=== PATIENT | male | born 1945 | race Caucasian/White ===

== ENCOUNTER 2020-11-12 08:01 | Outpatient (REF) | payer MEDICARE, OTHER, SELFPAY ==
[2020-11-12 11:55] LABS: Hematocrit 45.3 % (42-52); Hemoglobin 14.8 g/dl (14.0-18.0); Mean Corpuscular HGB Conc 32.7 g/dl (31.0-36.0); Mean Corpuscular Hemoglobin 30.6 pg (27.0-33.0); Mean Corpuscular Volume 93.6 fL (80-98); Mean Platelet Volume 9.9 fL (9.4-12.4); Platelet Count 293 X10*3/uL (160-400); Red Blood Count 4.84 X10*6/uL (4.60-5.80); Red Cell Distribution Width 12.5 % (11.0-16.0)
[2020-11-12 12:05] LABS: Estimated Average Glucose 114 mg/dL; Hemoglobin A1c % 5.6 %
[2020-11-12 12:48] LABS: Alanine Aminotransferase 23 U/L (0-40); Albumin Level 4.4 g/dL (3.5-5.0); Alkaline Phosphatase 102 U/L (39-117); Anion Gap 10 (12-20); Aspartate Amino Transferase 20 U/L (5-37); Bilirubin Total 0.7 mg/dL (0.0-1.0); Blood Urea Nitrogen 22 mg/dL (9-16); Calcium 9.5 mg/dL (8.4-10.2); Carbon Dioxide 33 mmol/L (22-29); Chloride 101 mmol/L (96-108); Cholesterol 279 mg/dL; Estimated Glomerular Filt Rate > 60; Glucose Fasting 98 mg/dL (60-99); HDL Cholesterol 47 mg/dL; LDL Cholesterol Calculated 179 mg/dl; Potassium 3.8 mmol/L (3.3-5.1); Sodium 140 mmol/L (135-145); Total Protein 6.6 g/dL (6.5-8.0); Triglycerides 266 mg/dL
[2020-11-12 13:03] LABS: Prostate Specific Antigen Scr 1.04 ng/mL (<0.05-4.0); TSH reflex Free T4 1.35 uIU/mL (0.32-4.0)
[2020-11-12 13:45] LABS: Creatinine Urine 83.52 mg/dL; Microalbum/Creatinine Ratio Ur 9.5 ug/mg cr
== END 2020-11-12 08:02 | disposition home or self-care (01) ==
LOC: HO.HMGCLDS 08:01
PROVIDERS: PCP Physician Assistant; Visit Provider Physician Assistant
DX: R73.09 Other abnormal glucose (principal); I10 Essential (primary) hypertension; Z12.5 Encounter for screening for malignant neoplasm of prostate
CPT/HCPCS: 36415; 80053; 80061; 82043; 83036; 84153; 84443; 85027

== ENCOUNTER → 2021-01-21 08:19 | Outpatient (REF) | payer MEDICARE, OTHER, SELFPAY ==
--- NOTE | 2021-01-21 08:30 | CA_ITS ---
Transthoracic Echocardiogram Patient (Last, First, Middle): Freddie Mancilla R Gender: Male Date of : 1945 Age: 75 Procedure Date: 01/21/2021 Procedure Type: Transthoracic Echocardiogram Location: OP Height: 177.8 cm Weight: 98.88 kg BSA: 2.17 m2 Heart Rate: bpm BP: 120 / 80 mmHg Consulting Systems Engineer: IRINA Referring MD: Josep Garner MD Symptoms: I35.9 AORTIC VALVE CALCIFICATION Study Quality: Good ECG Rhythm: Sinus Conclusions: - The left ventricular systolic function is normal. The visually estimated ejection fraction is between 60-65%. - Aortic valve sclerosis but no significant stenosis. Findings Left Ventricle Normal left ventricular cavity size. There is mildly increased left ventricular wall thickness. The left ventricular systolic function is normal. The visually estimated ejection fraction is between 60-65%. There is no evidence of regional wall motion abnormalities. Evidence suggests grade I (mild) diastolic dysfunction. Right Ventricle Normal right ventricular cavity size and systolic function. Atria Both atria are normal in size. Aortic Valve There is a normal trileaflet aortic valve. There is moderate calcification of the aortic valve. The peak aortic velocity is 2.76 m/s with a calculated peak gradient of 30 mmHg. The mean gradient is 16 mmHg. The aortic valve area is 2.17 cm2. There is mild aortic valve regurgitation. No significant stenosis. Mitral Valve The mitral valve appears normal. There is trace mitral valve regurgitation. There is no mitral valve stenosis. Pulmonic Valve The pulmonic valve was not well visualized. Tricuspid Valve Normal tricuspid valve structure. There is mild tricuspid valve regurgitation. The pulmonary artery systolic pressure is normal. Great Vessels The aortic annulus, sinuses of valsalva, and asc aorta are normal in size. Venous The inferior vena cava is normal in size and collapses greater than 50% with inspiration. Pericardium/Pleural There is no evidence of pericardial effusion. Prior Study Comparison Changes noted compared to prior study dated: 04/15/2018. Gradients across the aortic valve are slightly higher. Measurements 2D Linear Measurements IVSd: 1.13 0.6-0.9/0.6-1.0 cm LVIDd: 4.70 3.9-5.3/4.2-5.9 cm LVIDd Index: 2.17 2.4-3.2/2.2-3.1 cm/m2 LVIDs: 2.94 2.0-3.6 cm LVPWd: 1.04 0.7-1.1 cm Ao Root: 3.60 2.1-3.5 cm LA Diam: 3.20 2.7-3.8/3.0-4.0 cm LAIDs Index: 1.47 1.5-2.3 cm/m2 LV Mass: 229.24 67-162/88-224 g LV Mass Index: 105.64 43-95/49-115 g/m2 LVOT Diam: 2.30 3.0+(-)1.3 cm 2D Systolic Function EF 4C: 57.30 >55% EF 2C: 67.50 >55% EF BiP: 61.80 >55% Mitral Valve MV Pk E: 0.68 MV PK A: 0.59 MV Decel Time: 344.00 E/A: 1.20 E'Lateral: 7.94 E'Medial: 6.74 E/E' Med: 10.10 E/E' Lat: 8.60 PHT: 101.00 MVA PHT: 2.18 Decel Pratt: 1.98 Aortic Valve AoV Pk Arik: 2.76 AoV Mn Arik: 1.91 AoV VTI: 0.61 AoV Pk Grad: 30.00 Aov Mn Grad: 16.00 [place] Cont.VTI: 2.17 AI Pk Arik: 3.75 AI Pratt: 2.06 LVOT LVOT Pk Arik: 1.34 LVOT Mn Arik: 1.05 LVOT VTI: 0.32 LVOT Pk Grad: 7.00 LVOT Mn Grad: 5.00 LVOT Diam: 2.30 LVOT Area: 4.15 Diastolic Function MV Pk E: 0.68 MV Pk A: 0.59 E/A: 1.20 E'Medial: 6.74 E/E' Med: 10.10 E' Laterial: 7.94 E/E' Lat: 8.60 Tricuspid Valve TR Pk Arik: 2.71 TR Pk Grad: 29.00 RA Press: 3.00 RVSP: 32.00 Great Vessels Aorta Ao Root-2D: 3.60 2.0-3.7 cm Ao Asc: 3.30 2.1-3.4 cm Ao Arch: 2.80 Updated in Other Vendor System with Status of Final Josep Garner MD electronically signed on 01/23/2021 1:25:45 PM with status of Final
== END ==
LOC: HO.CARD 08:19
PROVIDERS: Visit Provider Internal Medicine
DX: I35.9 Nonrheumatic aortic valve disorder, unspecified (principal)
CPT/HCPCS: 93306

== ENCOUNTER → 2021-01-26 08:03 | Outpatient (BNVA) | payer MEDICARE, OTHER, SELFPAY | PROVIDERS: PCP Physician Assistant; Referring Provider Physician Assistant; Visit Provider Internal Medicine | DX: I25.10 Atherosclerotic heart disease of native coronary artery without angina pectoris (principal); I10 Essential (primary) hypertension; E78.5 Hyperlipidemia, unspecified; E11.8 Type 2 diabetes mellitus with unspecified complications; I35.9 Nonrheumatic aortic valve disorder, unspecified; G47.33 Obstructive sleep apnea (adult) (pediatric) | CPT/HCPCS: 93005; 99212 ==

== ENCOUNTER 2021-02-22 09:31 | Outpatient (REF) | payer MEDICARE, OTHER, SELFPAY ==
[2021-02-22 11:57] LABS: Alanine Aminotransferase 25 U/L (0-40); Albumin Level 4.5 g/dL (3.5-5.0); Alkaline Phosphatase 109 U/L (39-117); Anion Gap 12 (12-20); Aspartate Amino Transferase 25 U/L (5-37); Blood Urea Nitrogen 24 mg/dL (9-16); Calcium 9.7 mg/dL (8.4-10.2); Carbon Dioxide 30 mmol/L (22-29); Chloride 105 mmol/L (96-108); Cholesterol 156 mg/dL; Estimated Glomerular Filt Rate > 60; Glucose Fasting 97 mg/dL (60-99); HDL Cholesterol 45 mg/dL; LDL Cholesterol Calculated 78 mg/dl; Potassium 4.2 mmol/L (3.3-5.1); Sodium 143 mmol/L (135-145); Total Protein 6.6 g/dL (6.5-8.0); Triglycerides 166 mg/dL
[2021-02-22 12:15] LABS: Estimated Average Glucose 117 mg/dL; Hemoglobin A1C 151.6938 umol/L; Hemoglobin A1c % 5.7 %
[2021-02-22 12:17] LABS: TSH reflex Free T4 1.13 uIU/mL (0.32-4.0)
== END 2021-02-22 09:32 | disposition home or self-care (01) ==
LOC: HO.HMGCLDS 09:31
PROVIDERS: PCP Physician Assistant; Visit Provider Internal Medicine
DX: E11.8 Type 2 diabetes mellitus with unspecified complications (principal); I25.10 Atherosclerotic heart disease of native coronary artery without angina pectoris
CPT/HCPCS: 36415; 80053; 80061; 83036; 84443

== ENCOUNTER 2021-09-03 09:10 | Outpatient (REF) | payer MEDICARE, OTHER, SELFPAY ==
[2021-09-03 10:56] LABS: Hematocrit 43.9 % (42.0-52.0); Hemoglobin 14.5 g/dl (14.0-18.0); Mean Corpuscular Hemoglobin 30.9 pg (27.0-33.0); Mean Corpuscular Volume 93.6 fL (80.0-98.0); Mean Platelet Volume 10.1 fL (9.4-12.4); Platelet Count 249 X10*3/uL (160-400); Red Blood Count 4.69 X10*6/uL (4.60-5.80); Red Cell Distribution Width 11.9 % (11.0-16.0); White Blood Count 6.1 X10*3/uL (4.8-10.8)
[2021-09-03 11:06] LABS: Estimated Average Glucose 120 mg/dL; Hemoglobin A1C 152.3509 umol/L; Hemoglobin A1c % 5.8 %
[2021-09-03 11:45] LABS: Alanine Aminotransferase 36 U/L (0-40); Albumin Level 4.2 g/dL (3.5-5.0); Alkaline Phosphatase 111 U/L (39-117); Anion Gap 10 (12-20); Aspartate Amino Transferase 27 U/L (5-37); Bilirubin Total 0.9 mg/dL (0.0-1.0); Blood Urea Nitrogen 24 mg/dL (9-16); Calcium 9.6 mg/dL (8.4-10.2); Carbon Dioxide 31 mmol/L (22-29); Chloride 103 mmol/L (96-108); Cholesterol 146 mg/dL; Creatinine Urine 48.47 mg/dL; Estimated Glomerular Filt Rate > 60; Glucose Fasting 100 mg/dL (60-99); HDL Cholesterol 45 mg/dL; LDL Cholesterol Calculated 72 mg/dl; Microalbum/Creatinine Ratio Ur 14.4 ug/mg cr; Potassium 3.9 mmol/L (3.3-5.1); Sodium 140 mmol/L (135-145); Total Protein 6.4 g/dL (6.5-8.0); Triglycerides 147 mg/dL
[2021-09-03 11:53] LABS: Prostate Specific Antigen Scr 0.68 ng/mL (<0.05-4.0); TSH reflex Free T4 1.14 uIU/mL (0.32-4.0)
== END 2021-09-03 09:11 | disposition home or self-care (01) ==
LOC: HO.HMGCLDS 09:10
PROVIDERS: PCP Physician Assistant; Visit Provider Physician Assistant
DX: I10 Essential (primary) hypertension (principal); I25.10 Atherosclerotic heart disease of native coronary artery without angina pectoris; Z12.5 Encounter for screening for malignant neoplasm of prostate
CPT/HCPCS: 36415; 80053; 80061; 82043; 83036; 84153; 84443; 85027

== ENCOUNTER 2021-09-19 15:03 | Outpatient (REF) | payer MEDICARE, OTHER, SELFPAY ==
--- NOTE | ~2021-09-19 | XR_ITS ---
EXAMINATION: XR LUMBOSACRAL SPINE CLINICAL INFORMATION: Spondylosis without myelopathy or radiculopathy. COMPARISON: Unremarkable lumbar spine November 2018. TECHNIQUE: 3 views of the lumbosacral spine. FINDINGS: There is curvature of the mid lumbar spine to the right. There is anterior subluxation of L3 with respect to L2. Bone alignment is otherwise normal. No fracture or dislocation is seen. There is multilevel degenerative spondylosis and degenerative disc disease. There is multilevel facet arthritis. There is evidence of atherosclerotic disease. XR/XR lumbar spine 2-3V IMPRESSION: Scoliosis. Mild anterior subluxation of L3 with respect to L2. Multilevel degenerative disc disease and facet arthritis.
== END 2021-09-19 15:04 | disposition home or self-care (01) ==
LOC: HO.XRAY 15:03
PROVIDERS: PCP Physician Assistant; Visit Provider Internal Medicine
DX: M47.816 Spondylosis without myelopathy or radiculopathy, lumbar region (principal); M96.1 Postlaminectomy syndrome, not elsewhere classified
CPT/HCPCS: 72100; 99202

== ENCOUNTER → 2021-09-30 10:59 | Outpatient (BNVA) | payer MEDICARE, OTHER, SELFPAY | PROVIDERS: PCP Physician Assistant; Visit Provider Internal Medicine | DX: M96.1 Postlaminectomy syndrome, not elsewhere classified (principal); M47.816 Spondylosis without myelopathy or radiculopathy, lumbar region | CPT/HCPCS: Q3014 ==

== ENCOUNTER 2021-11-16 06:12 | Outpatient (REF) | payer MEDICARE, OTHER, SELFPAY ==
--- NOTE | ~2021-11-16 | FL_ITS ---
EXAMINATION: XR FLUOROSCOPY WITH IMAGES CLINICAL INFORMATION: Spondylosis without myelopathy COMPARISON: None. TECHNIQUE: Fluoroscopy performed by all the etiology. Fluoroscopy time: 0.4 minutes DAP: 2.52 Gycm2 Images: 3 FINDINGS: There is contrast opacifying soft tissues adjacent to the right and left L4 and L5 pedicles for pain management. There is loss of disc at virtually at every disc level with spondylosis. No fracture or lytic process seen. FL/FL guidance in treatment room IMPRESSION: Fluoroscopy guidance was provided to referrer for pain management
== END 2021-11-16 06:13 | disposition home or self-care (01) ==
LOC: HO.RADIR 06:12
PROVIDERS: Visit Provider Internal Medicine
DX: M47.816 Spondylosis without myelopathy or radiculopathy, lumbar region (principal); M96.1 Postlaminectomy syndrome, not elsewhere classified
CPT/HCPCS: 64493; 64494; Q9967

== ENCOUNTER → 2021-11-18 11:34 | Outpatient (BNVA) | payer MEDICARE, OTHER, SELFPAY | PROVIDERS: PCP Physician Assistant; Visit Provider Internal Medicine | DX: M47.816 Spondylosis without myelopathy or radiculopathy, lumbar region (principal) | CPT/HCPCS: Q3014 ==

== ENCOUNTER → 2022-01-11 07:28 | Day surgery (SDC) | payer MEDICARE, OTHER, SELFPAY ==
--- NOTE | ~2022-01-11 | FL_ITS ---
EXAMINATION: XR FL WITH IMAGES CLINICAL INFORMATION: Pain management fluoroscopy. COMPARISON: 11/16/2021 TECHNIQUE: Fluoroscopy performed by Dr. Milian. Fluoroscopy Time: 0.5 minutes. DAP: 4.99 Gycm2. Images: 3. FINDINGS: Williams are seen placed near the pedicles of L3, L4, and L5 on the right. There is significant degenerative disc disease seen at the visualized levels. FL/FL guidance in OR IMPRESSION: C-arm imaging for pain management therapy.
--- NOTE | 2022-01-11 09:35 | MHC.SHP ---
Pre-Procedural Eval Section A Date of Service: 01/11/22 The patient is an INPATIENT: No Changes since office visit: Yes Patient answered all questions The History & Physical has been completed within 30 days and I have reviewed it.: No Section B Chief Complaint: Spondylosis without myelopathy or radiculopathy, l Relevant Family History (Specify if Yes): No Relevant Social History: None Allergies: Allergies Allergy/AdvReac Type Severity Reaction Status Date / Time No Known Allergies Allergy Verified 11/16/21 07:57 Plan Diagnosis/Plan: Unchanged I have reviewed the history and physical and performed a pertinent physical examination on my patient. No changes have occurred unless specified.
--- NOTE | 2022-01-11 09:36 | P.BOP_ITS ---
Brief Operative Note Date of Service: 01/11/22 Pre-op diagnosis: Lumbar spondylosis Post-op diagnosis: same Procedure: Radiofrequency ablation lumbar medial branches L3/L4, L4/L5, L5/SA Surgeon: Gregory Milian MD Anesthesia: local Was an Industrial Chemist used for this Procedure?: No Estimated blood loss (mL): 2 Pathology: none sent Condition: stable Disposition: same day
--- NOTE | 2022-01-11 09:37 | W.PM.OPN ---
Operative Note Operative Note Date of Service: 01/11/22 Narrative: Radiofrequency lesioning medial branch nerves, Right L3, L4 medial branches and L5 dorsal ramus (L4/5 and L5/S1) (2 levels, 3 nerves) After obtaining written consent, pre-procedure blood pressure and heart rate were stable and recorded in the nursing record. The patient was placed in the prone position. The lumbar area was prepped with chloraprep and draped in sterile fashion. The skin over the target for each medial branch nerve was anesthetized with 0.5% lidocaine. An 18 gauge radiofrequency cannula was advanced to each target site under fluoroscopic guidance. No paresthesias were elicited with needle placement and aspiration was negative for heme and CSF. Impedences were verified under 600 ohms. Sensory testing (50 Hz) and then motor testing (2 Hz) confirmed needle placement at each site within the appropriate voltage thresholds. Each site was injected with 1 ml 2% preservative-free lidocaine. Radiofrequency lesioning was performed for 90 seconds at 80 deg Celcius. Each site was then injected with 0.5 ml 0.5% ropivacaine. The needle was removed, skin cleansed and a sterile bandage was applied. The patient tolerated the procedure well and no complications were encountered. Following the procedure the patient's vital signs were stable. The patient was discharged home in good condition with post-procedural instructions. Time Out: Immediately prior to the procedure, the following was verbally confirmed that there is a signed consent form and that the correct patient, planned procedure, site and side are consistent with documentation and that necessary equipment and/or blood products are available prior to the start of the case. Complications: none EBL: <2 cc
== END ==
PROVIDERS: PCP Physician Assistant; Visit Provider Internal Medicine
DX: M47.816 Spondylosis without myelopathy or radiculopathy, lumbar region (principal); M96.1 Postlaminectomy syndrome, not elsewhere classified; Z96.651 Presence of right artificial knee joint; Z98.890 Other specified postprocedural states
CPT/HCPCS: 64635; 64636; J2250; J2795; J3010

== ENCOUNTER 2022-01-25 08:02 | Day surgery (SDC) | payer MEDICARE, OTHER, SELFPAY ==
--- NOTE | ~2022-01-25 | FL_ITS ---
EXAMINATION: XR FLUOROSCOPY WITH IMAGES CLINICAL INFORMATION: Spondylosis without myelopathy. COMPARISON: Lumbar radiographs 09/19/2021 TECHNIQUE: Fluoroscopy performed by Dr. Milian. Fluoroscopy time: 0.7 minutes DAP: 2.98 Gycm2 Images: 4 FINDINGS: There are spinal needles overlying the outer left L3, L4, and L5 neural foramen. There are multilevel degenerative disc changes with disc narrowing and vertebral spurring and mild dextrocurvature similar to prior radiographs. FL/FL guidance in OR IMPRESSION: Fluoroscopy for pain management procedures.
[2022-01-25 08:18] VITALS: BMI 31.2
[2022-01-25 08:19] VITALS: BP 131/62; PULSE 63; RESP 17; TEMP 36.6; O2SAT 95
--- NOTE | 2022-01-25 08:32 | MHC.SHP ---
Pre-Procedural Eval Section A Date of Service: 01/25/22 The patient is an INPATIENT: No Changes since office visit: Yes Patient answered all questions The History & Physical has been completed within 30 days and I have reviewed it.: Yes Section B Chief Complaint: Spondylosis without myelopathy or radiculopathy, l Relevant Social History: None Present Medications: None Medical History: Significant History (lumbar spondylosis) Allergies: Allergies Allergy/AdvReac Type Severity Reaction Status Date / Time No Known Allergies Allergy Verified 11/16/21 07:57 Review of Systems Sugical H&P ROS: Negative: Constitution, Cardiovascular, Respiratory, Neurological and Psychiatric Exam Surgical H&P Exam: Normal: HEENT, Normal: Heart and Normal: Lungs Plan Diagnosis/Plan: Unchanged I have reviewed the history and physical and performed a pertinent physical examination on my patient. No changes have occurred unless specified.
--- NOTE | 2022-01-25 09:27 | P.OP_ITS ---
Operative Note Operative Note Date of Service: 01/25/22 Narrative: Radiofrequency lesioning medial branch nerves, Left L3, L4 medial branches and L5 dorsal ramus (L4/5 and L5/S1) (2 levels, 3 nerves) After obtaining written consent, pre-procedure blood pressure and heart rate were stable and recorded in the nursing record. The patient was placed in the prone position. The lumbar area was prepped with chloraprep and draped in sterile fashion. The skin over the target for each medial branch nerve was anesthetized with 0.5% lidocaine. An 18 gauge radiofrequency cannula was advanced to each target site under fluoroscopic guidance. No paresthesias were elicited with needle placement and aspiration was negative for heme and CSF. Impedences were verified under 600 ohms. Sensory testing (50 Hz) and then motor testing (2 Hz) confirmed needle placement at each site within the appropriate voltage thresholds. Each site was injected with 1 ml 2% preservative-free lidocaine. Radiofrequency lesioning was performed for 90 seconds at 80 deg Celcius. Each site was then injected with 0.5ml 0.5% ropivacaine. The needle was removed, skin cleansed and a sterile bandage was applied. The patient tolerated the procedure well and no complications were encountered. Following the pr ocedure the patient's vital signs were stable. The patient was discharged home in good condition with post-procedural instructions. Time Out: Immediately prior to the procedure, the following was verbally confirmed that there is a signed consent form and that the correct patient, planned procedure, site and side are consistent with documentation and that necessary equipment and/or blood products are available prior to the start of the case. Complications: none EBL: 5 cc
--- NOTE | 2022-01-25 09:27 | PM.OP ---
Brief Operative Note Date of Service: 01/25/22 Pre-op diagnosis: Lumbar spondylosis Post-op diagnosis: same Procedure: Radiofrequency ablation lumbar L3, L4, L5 medial branches left Surgeon: Gregory Milian MD Anesthesia: local Was an Supervisor Assembly used for this Procedure?: No Estimated blood loss (mL): 5 Pathology: none sent Condition: stable Disposition: same day
[2022-01-25 09:30] VITALS: BP 135/62; PULSE 67; RESP 18; TEMP 37.1; O2SAT 95
== END 2022-01-25 09:36 | disposition home or self-care (01) ==
PROVIDERS: PCP Physician Assistant; Visit Provider Internal Medicine
PROC: (CPT 64635; principal; 2022-01-25 08:00)
DX: M47.816 Spondylosis without myelopathy or radiculopathy, lumbar region (principal); M96.1 Postlaminectomy syndrome, not elsewhere classified
CPT/HCPCS: 64635; 64636; J2795; Q9967

== ENCOUNTER → 2022-01-26 08:04 | Outpatient (BNVA) | payer MEDICARE, OTHER, SELFPAY | PROVIDERS: PCP Physician Assistant; Referring Provider Physician Assistant; Visit Provider Internal Medicine | DX: I25.10 Atherosclerotic heart disease of native coronary artery without angina pectoris (principal); I10 Essential (primary) hypertension; I35.9 Nonrheumatic aortic valve disorder, unspecified; E78.5 Hyperlipidemia, unspecified; E11.8 Type 2 diabetes mellitus with unspecified complications; G47.33 Obstructive sleep apnea (adult) (pediatric); R42 Dizziness and giddiness | CPT/HCPCS: 93005; 99212 ==

== ENCOUNTER → 2022-02-24 08:03 | Outpatient (BNVA) | payer MEDICARE, OTHER, SELFPAY | PROVIDERS: PCP Physician Assistant; Visit Provider Internal Medicine | DX: M47.26 Other spondylosis with radiculopathy, lumbar region (principal); Z98.890 Other specified postprocedural states | CPT/HCPCS: 99212 ==

== ENCOUNTER 2022-03-03 06:53 | Outpatient (REF) | payer MEDICARE, OTHER, SELFPAY ==
--- NOTE | ~2022-03-03 | FL_ITS ---
EXAMINATION: XR FLUOROSCOPY WITH IMAGES CLINICAL INFORMATION: Radiculopathy COMPARISON: None. TECHNIQUE: Fluoroscopy performed by Sherrill Rodriguez. Fluoroscopy time 41.8 seconds Dose: 24.43 Gycm2 Images: 4 FINDINGS: There are needles positioned inferior to the right L4 and L5 pedicles opacifying the extra foraminal neural pathway. FL/FL guidance in treatment room IMPRESSION: Fluoroscopy was provided to the referrer for pain management.
== END 2022-03-03 06:54 | disposition home or self-care (01) ==
LOC: HO.RADIR 06:53
PROVIDERS: Visit Provider Internal Medicine
DX: M54.16 Radiculopathy, lumbar region (principal)
CPT/HCPCS: 64483; J1040; J1100; J2795; Q9967

== ENCOUNTER 2022-07-22 06:42 | Outpatient (REF) | payer MEDICARE, OTHER, SELFPAY ==
[2022-07-22 11:18] LABS: Hematocrit 45.1 % (42.0-52.0); Hemoglobin 14.8 g/dl (14.0-18.0); Mean Corpuscular HGB Conc 32.8 g/dl (31.0-36.0); Mean Corpuscular Hemoglobin 30.6 pg (27.0-33.0); Mean Corpuscular Volume 93.2 fL (80.0-98.0); Platelet Count 230 X10*3/uL (160-400); Red Blood Count 4.84 X10*6/uL (4.60-5.80); Red Cell Distribution Width 11.9 % (11.0-16.0)
[2022-07-22 11:37] LABS: Estimated Average Glucose 120 mg/dL; Hemoglobin A1c % 5.8 %
[2022-07-22 12:00] LABS: Alanine Aminotransferase 31 U/L (0-40); Albumin Level 4.2 g/dL (3.5-5.0); Alkaline Phosphatase 133 U/L (39-117); Anion Gap 14 (12-20); Aspartate Amino Transferase 26 U/L (5-37); Bilirubin Total 0.4 mg/dL (0.0-1.0); Blood Urea Nitrogen 27 mg/dL (9-16); Calcium 9.7 mg/dL (8.4-10.2); Carbon Dioxide 26 mmol/L (22-29); Chloride 105 mmol/L (96-108); Cholesterol 161 mg/dL; Estimated Glomerular Filt Rate > 60; Glucose Fasting 108 mg/dL (60-99); HDL Cholesterol 53 mg/dL; LDL Cholesterol Calculated 94 mg/dl; Potassium 4.4 mmol/L (3.3-5.1); Sodium 141 mmol/L (135-145); TSH reflex Free T4 1.76 uIU/mL (0.32-4.0); Total Protein 6.4 g/dL (6.5-8.0); Triglycerides 73 mg/dL
== END 2022-07-22 06:43 | disposition home or self-care (01) ==
LOC: HO.HMGCLDS 06:42
PROVIDERS: PCP Physician Assistant; Visit Provider Physician Assistant
DX: I10 Essential (primary) hypertension (principal); R73.09 Other abnormal glucose
CPT/HCPCS: 36415; 80053; 80061; 83036; 84443; 85027

== ENCOUNTER 2022-09-02 09:04 | Outpatient (REF) | payer MEDICARE, OTHER, SELFPAY ==
[2022-09-02 11:30] LABS: Alanine Aminotransferase 23 U/L (0-40); Albumin Level 4.5 g/dL (3.5-5.0); Alkaline Phosphatase 109 U/L (39-117); Anion Gap 13 (12-20); Aspartate Amino Transferase 26 U/L (5-37); Bilirubin Total 1.1 mg/dL (0.0-1.0); Blood Urea Nitrogen 24 mg/dL (9-16); Carbon Dioxide 29 mmol/L (22-29); Chloride 103 mmol/L (96-108); Estimated Glomerular Filt Rate > 60; Glucose Random 95 mg/dL (60-115); Potassium 4.4 mmol/L (3.3-5.1); Sodium 141 mmol/L (135-145); Total Protein 6.8 g/dL (6.5-8.0)
== END 2022-09-02 09:05 | disposition home or self-care (01) ==
LOC: HO.HMGCLDS 09:04
PROVIDERS: PCP Physician Assistant; Visit Provider Nurse Practitioner Family
DX: I10 Essential (primary) hypertension (principal)
CPT/HCPCS: 36415; 80053

== ENCOUNTER 2022-12-13 15:00 | Outpatient (REF) | payer MEDICARE, OTHER, SELFPAY ==
[2022-12-13 16:34] LABS: Alanine Aminotransferase 30 U/L (0-40); Albumin Level 4.2 g/dL (3.5-5.0); Alkaline Phosphatase 99 U/L (39-117); Aspartate Amino Transferase 28 U/L (5-37); Bilirubin Direct 0.2 mg/dL (0.0-0.5); Bilirubin Total 0.8 mg/dL (0.0-1.0); Blood Urea Nitrogen 28 mg/dL (9-16); Estimated Glomerular Filt Rate 54; Total Protein 6.1 g/dL (6.5-8.0)
== END 2022-12-13 15:01 | disposition home or self-care (01) ==
LOC: HO.HMGCLDS 15:00
PROVIDERS: Visit Provider Podiatrist
DX: Z13.89 Encounter for screening for other disorder (principal)
CPT/HCPCS: 36415; 80076; 82565; 84520

== ENCOUNTER 2023-01-13 06:52 | Outpatient (REF) | payer MEDICARE, OTHER, SELFPAY ==
[2023-01-13 11:13] LABS: Hematocrit 43.8 % (42.0-52.0); Hemoglobin 14.6 g/dl (14.0-18.0); Mean Corpuscular HGB Conc 33.3 g/dl (31.0-36.0); Mean Corpuscular Hemoglobin 30.9 pg (27.0-33.0); Mean Corpuscular Volume 92.8 fL (80.0-98.0); Mean Platelet Volume 9.9 fL (9.4-12.4); Platelet Count 241 X10*3/uL (160-400); Red Blood Count 4.72 X10*6/uL (4.60-5.80); Red Cell Distribution Width 11.8 % (11.0-16.0); White Blood Count 6.7 X10*3/uL (4.8-10.8)
[2023-01-13 11:33] LABS: Alanine Aminotransferase 29 U/L (0-40); Albumin Level 4.2 g/dL (3.5-5.0); Alkaline Phosphatase 102 U/L (39-117); Anion Gap 10 (12-20); Aspartate Amino Transferase 26 U/L (5-37); Bilirubin Total 1.3 mg/dL (0.0-1.0); Blood Urea Nitrogen 25 mg/dL (9-16); Calcium 9.6 mg/dL (8.4-10.2); Carbon Dioxide 28 mmol/L (22-29); Chloride 106 mmol/L (96-108); Cholesterol 154 mg/dL; Estimated Glomerular Filt Rate > 60; Glucose Fasting 102 mg/dL (60-99); HDL Cholesterol 48 mg/dL; LDL Cholesterol Calculated 74 mg/dl; Potassium 4.1 mmol/L (3.3-5.1); Sodium 140 mmol/L (135-145); Total Protein 6.2 g/dL (6.5-8.0); Triglycerides 160 mg/dL
[2023-01-13 11:33] LABS: Microalbum/Creatinine Ratio Ur 18.9 ug/mg cr
[2023-01-13 11:50] LABS: Prostate Specific Antigen Scr 1.77 ng/mL (<0.05-4.0)
== END 2023-01-13 06:53 | disposition home or self-care (01) ==
LOC: HO.HMGCLDS 06:52
PROVIDERS: PCP Physician Assistant; Visit Provider Physician Assistant
DX: E11.8 Type 2 diabetes mellitus with unspecified complications (principal); I25.10 Atherosclerotic heart disease of native coronary artery without angina pectoris; Z12.5 Encounter for screening for malignant neoplasm of prostate
CPT/HCPCS: 36415; 80053; 80061; 82043; 84153; 85027

== ENCOUNTER → 2023-02-12 15:16 | Outpatient (BNVA) | payer MEDICARE, OTHER, SELFPAY | PROVIDERS: PCP Physician Assistant; Referring Provider Physician Assistant; Visit Provider Nurse Practitioner Family | DX: I35.9 Nonrheumatic aortic valve disorder, unspecified (principal); I45.10 Unspecified right bundle-branch block; R01.1 Cardiac murmur, unspecified; I25.10 Atherosclerotic heart disease of native coronary artery without angina pectoris; I10 Essential (primary) hypertension; E78.5 Hyperlipidemia, unspecified | CPT/HCPCS: 93005; 99212 ==

== ENCOUNTER → 2023-03-19 15:29 | Outpatient (REF) | payer MEDICARE, OTHER, SELFPAY ==
--- NOTE | 2023-03-19 15:31 | CA_ITS ---
Transthoracic Echocardiogram Patient (Last, First, Middle): Freddie Mancilla R Gender: Male Date of : 1945 Age: 78 Procedure Date: 03/19/2023 Procedure Type: Transthoracic Echocardiogram Location: OP Height: 175.26 cm Weight: 99.79 kg BSA: 2.15 m2 Heart Rate: bpm BP: 134 / 80 mmHg Hand Candle Molder: BETO Referring MD: Thea Reese [employer] SE[employer] Intern: Darryl Almaguer MD Symptoms: I35.9 - Nonrheumatic aortic valve disorder, unspecified Study Quality: Good ECG Rhythm: Sinus Conclusions: - 1. Normal LV systolic function with moderate LVH with grade 1 diastolic dysfunction 2. Mild aortic stenosis with trivial aortic regurgitation 3. Normal RV systolic pressure 4. No gross pericardial effusion Findings Left Ventricle Normal left ventricular size and systolic function. There is moderately increased left ventricular wall thickness. The visually estimated ejection fraction is between 60-65%. Spectral Doppler is indicative of an impaired relaxation filling pattern. E/E prime ratio is <8, consistent with normal filling pressures. Evidence suggests grade I (mild) diastolic dysfunction. Peak GLS is -20.4%. within normal limits. Right Ventricle Normal right ventricular cavity size and systolic function. Atria The left atrium is likely dilated. There is lipomatous hypertrophy of the interatrial septum. There is no evidence of interatrial shunt. The right atrium is normal in size. Aortic Valve There is mild calcification of the aortic valve. There is moderate thickening of the aortic valve. There is mild aortic valve stenosis. The peak aortic gradient is 41 mmHg.The mean gradient is 21 mmHg. The aortic valve area is 1.72 cm2. There is trace (trivial) aortic valve regurgitation. Mitral Valve There is mild anterior and posterior mitral leaflet thickening. There is mild mitral annular calcification. There is trace mitral valve regurgitation. There is no mitral valve stenosis. Pulmonic Valve The pulmonic valve is likely normal. Tricuspid Valve Normal tricuspid valve structure. There is mild tricuspid valve regurgitation. The right ventricular systolic pressure is normal. The right ventricular systolic pressure is 31 mmHg. Normal right atrial pressure. There is no evidence of pulmonary hypertension. Great Vessels All visible segments of the aorta are normal in size. The pulmonary artery was not well visualized. Venous The inferior vena cava is normal in size and collapses greater than 50% with inspiration. Pericardium/Pleural There is no evidence of pericardial effusion. Prior Study Comparison Changes noted compared to prior study dated: 01/21/2021. Mild aortic stenosis is present Measurements 2D Linear Measurements IVSd: 1.48 0.6-0.9/0.6-1.0 cm LVIDd: 4.41 3.9-5.3/4.2-5.9 cm LVIDd Index: 2.05 2.4-3.2/2.2-3.1 cm/m2 LVIDs: 2.42 2.0-3.6 cm LVPWd: 1.41 0.7-1.1 cm Ao Root: 3.20 2.1-3.5 cm LA Diam: 3.90 2.7-3.8/3.0-4.0 cm LAIDs Index: 1.81 1.5-2.3 cm/m2 LV Mass: 315.38 67-162/88-224 g LV Mass Index: 146.69 43-95/49-115 g/m2 LVOT Diam: 2.30 3.0+(-)1.3 cm Mitral Valve MV Pk E: 0.62 MV PK A: 1.03 MV Decel Time: 181.00 E/A: 0.60 E'Lateral: 8.38 E'Medial: 6.74 E/E' Med: 9.20 E/E' Lat: 7.40 PHT: 53.00 MVA PHT: 4.15 Decel [place]: 3.41 Aortic Valve AoV Pk Arik: 3.19 AoV Mn Arik: 2.09 AoV VTI: 0.69 AoV Pk Grad: 41.00 Aov Mn Grad: 21.00 [place] Cont.VTI: 1.72 LVOT LVOT Pk Arik: 1.21 LVOT Mn Arik: 0.78 LVOT VTI: 0.29 LVOT Pk Grad: 6.00 LVOT Mn Grad: 3.00 LVOT Diam: 2.30 LVOT Area: 4.15 Diastolic Function MV Pk E: 0.62 MV Pk A: 1.03 E/A: 0.60 E'Medial: 6.74 E/E' Med: 9.20 E' Laterial: 8.38 E/E' Lat: 7.40 Right Ventricle TAPSE (mm): 27.00 TVS' Arik: 15.00 Tricuspid Valve TR Pk Arik: 2.66 TR Pk Grad: 28.00 RA Press: 3.00 RVSP: 31.00 Great Vessels Aorta Ao Root-2D: 3.20 2.0-3.7 cm Ao Asc: 3.30 2.1-3.4 cm Pulmonary Valve PV Pk Arik: 1.24 Peak PV Grad: 6.00 Updated in Other Vendor System with Status of Final Darryl Almaguer MD electronically signed on 03/20/2023 10:41:12 AM with status of Final
== END ==
LOC: HO.CARD 15:29
PROVIDERS: PCP Physician Assistant; Visit Provider Nurse Practitioner Family
DX: I35.9 Nonrheumatic aortic valve disorder, unspecified (principal); R01.1 Cardiac murmur, unspecified
CPT/HCPCS: 93306; 93356

== ENCOUNTER → 2023-03-19 15:31 | Outpatient (BNV) | payer MEDICARE, OTHER, SELFPAY | PROVIDERS: PCP Physician Assistant; Visit Provider Internal Medicine Cardiovascular Disease | DX: I35.0 Nonrheumatic aortic (valve) stenosis (principal) | CPT/HCPCS: 93306 ==

== ENCOUNTER 2023-08-09 14:36 | Outpatient (AMB) | payer MEDICARE, OTHER, SELFPAY ==
[2023-08-09 14:38] VITALS: BP 150/74; PULSE 70; BMI 30.4
--- NOTE | 2023-08-09 14:38 | MHC.PC.OV ---
Vital Signs 08/09/23 14:38 Height 5 ft 10 in Weight 212 lb BMI 30.4 BP 150/74 H Blood Pressure Location Lt brachial Position Sitting Pulse 70 Pulse Source Palpation Oxygen Delivery Method Room Air Intake Visit Reasons: F/U HTN & DM Mercury Cracking Tester Required: No Accompanied by: Self / Same As Patient Allergies No Known Allergies Allergy (Verified 08/09/23 15:11) Medication List - Last Reconciled 08/09/23 by Arnold Guaman PA-C aspirin 81 mg PO DAILY atorvastatin 80 mg PO DAILY 90 days gabapentin 300 mg PO BID 90 days hydrochlorothiazide 25 mg PO DAILY 90 days ibuprofen 800 mg PO Q12H meloxicam 15 mg PO DAILY 90 days metformin 500 mg PO BID 90 days metoprolol succinate ER 25 mg PO DAILY tadalafil 20 mg PO DAILY PRN 7 days triamcinolone acetonide 0.5% 1 appl topical DAILY 15 days Tobacco use date assessed: 01/18/23 Fall risk assessment: No Falls in past year Last assessed Fall Risk: 08/09/23 Dental Screening Dental Screen Date: 08/09/23 Did you have a dental visit in the last 12 months?: Yes Did you have a dental problem in the last 6 months where you did not have access to dental care?: No Was dental information given to patient?: Patient has dentist HPI F/U HTN & DM HPI Details Patient is a 78 year-old male here today for follow-up visit. . Patient has a past medical history significant for hyperlipidemia, impaired glucose metabolism, sleep apnea, chronic lumbar spine pain, essential hypertension. Concern--> having right here decreased hearing. Has had cerumen impaction in the past. .. Type 2 diabetes:? Most recent fasting blood sugar at 102,? He reports he has been trying to eat much better. He is interested in trying Ozempic for better diabetes control and added benefit to help him with weight reduction .. Lumbar spondylosis / Disc herniation:? He does report getting surgery on his lumbar spine 15 years ago for disc herniation which did help reduce his pain.? Over the last several years his pain in his back has gotten worse.? He does use gabapentin 100 mg b.i.d. along with ibuprofen. ? .. ? Hypertension:? Blood pressure acceptable elevated today in office. He reports that home blood pressures are slightly elevated 140 systolic. He reports he has not been monitoring his blood pressures at home.? Denies any chest pains, shortness of breath or headaches. .. Obstructive sleep apnea: Uses CPAP on a nightly basis with good effect. .. Aortic Valve calcification/ CAD:? Is followed by Cardiology on a six-month basis.? ? He denies any shortness of breath, chest discomfort, headaches or dizziness.? PFSH Medical History (Updated 08/09/23 @ 15:31 by Arnold Guaman PA-C) Post-laminectomy syndrome Lumbar spondylosis Atherosclerotic cardiovascular disease Knee osteoarthritis Surgical History Status post right knee replacement History of lumbar surgery History of adenoidectomy Hx of prior ablation treatment Hx of nasal septoplasty History of appendectomy Family History Father CHF (congestive heart failure) Mother Dementia Breast cancer Social History Housing: House Alcohol intake: current Alcohol intake frequency: a few times a week Alcohol type: hard liquor Patient Tobacco Use Status: Former Tobacco user Quit Date: 45 years ago Tobacco use type: Cigarette e-Cigarette/Vaping Use: Never Used Second Hand Smoke Exposure: No service: Yes Current occupational status: employed and retired Current occupation: [employer] Cognitive needs: No Hearing needs: No Vision needs: Yes Questionnaire Thrive Questionnaire Date Thrive assessed: 01/18/23 MATTHIAS-7 AMB Questionnaire MATTHIAS-7 Date MATTHIAS - 7 assessed: 01/18/23 Source: Developed by Drs. Yaron Gallegos, Pat Hdz, Ernesto Gustafson and colleagues, with an educational meg from [employer]. Review of Systems Const Denies headache(s) Eyes Denies loss of vision ENT Denies vertigo, Denies dizziness, Denies headache(s) and Denies sore throat Card Denies chest pain, Denies leg edema and Denies lightheadedness Resp Denies cough, Denies hemoptysis and Denies wheezing GI Denies abdominal pain, Denies melena, Denies constipation, Denies diarrhea and Denies vomiting Denies dysuria, Denies urinary frequency and Denies urinary urgency Musc Denies arthralgias, Denies joint swelling, Denies numbness and Denies tingling Neuro Denies Abnormal speech present, Denies behavioral changes, Denies vertigo, Denies dizziness, Denies headache(s), Denies loss of vision, Denies memory loss, Denies numbness and Denies tingling Psych Denies anxiety, Denies behavioral changes, Denies depression, Denies memory loss and Denies panic attacks Aldo/Lymph Denies easy bleeding and Denies easy bruising Aller/Immun Denies wheezing Physical exam (Primary Care) Vital Signs: Last Vital Signs Pulse 70 08/09/23 14:38 BP 150/74 H 08/09/23 14:38 Oxygen Delivery Method Room Air 08/09/23 14:38 BMI result Body Mass Index 30.4 BMI Assessment/Plan discussion: High Tobacco/Smoking Status: Tobacco use Status Tobacco use date assessed 01/18/23 08/09/23 14:39 Patient Tobacco Use Status Former Tobacco user 08/09/23 14:39 Tobacco use type Cigarette 08/09/23 14:39 e-Cigarette/Vaping Use Never Used 08/09/23 14:39 Thrive Assessment: Date of Thrive Assessment Date Thrive assessed 01/18/23 08/09/23 14:39 Const Other: Obese General: healthy appearing, no acute distress, alert and awake Nutritional Appearance: well nourished Orientation/consciousness: oriented to person, oriented to place and oriented to time HENMT Other: RIGHT EAR: NOTABLE CERUMEN IMPACTION, AFTER LAVAGE CLEAR WITHOUT ANY EVIDENCE OF OTITIS MEDIA General nose exam: Normal nasal mucous membranes and turbinates present Eyes Conjunctivae: conjunctivae normal Sclerae: sclerae normal Pupils: Equal, round and reactive pupils present Neck Neck: Yes no lymphadenopathy and Yes no JVD Thyroid: Thyroid normal Carotids: no bruits Resp Effort & Inspection: normal respiratory effort and not tachypneic Auscultation: no crackles, no rales, no rhonchi and no wheezes Cardio Rate: regular rate Rhythm: regular rhythm Heart sounds: no murmurs and normal S1 and S2 GI Palpation (GI): Soft to palpation, nontender, no hepatomegaly and no splenomegaly Auscultation: normal bowel sounds Skin General skin exam: no rashes or lesions noted and dry skin Neuro General: oriented to person, oriented to place and oriented to time Cranial nerves: Yes Equal, round and reactive pupils present Speech: No Abnormal speech present Gait exam (Neuro): Normal gait present Motor exam (neuro): no tremor noted Extrem Right upper extremity: full ROM Left upper extremity: full ROM Right lower extremity: full ROM; no edema Left lower extremity: full ROM; no edema Psych Mental Status: mental status grossly normal Speech and movement: Normal speech and movement present Affect: normal affect Attitude: cooperative Thought process: Normal thought process present Office Procedures Cerumen Removal From which ear canal was the cerumen removed: right Removal: irrigation and otoscope w/curette Notes: patient tolerated procedure well, no complications and ear canal clear [id number] Irrigation/Lavage Immunizations pneumoc 20-kameron conj-dip cr(PF) 0.5 mL IM syringe Performing Provider: Arnold Guaman PA-C [facility] Administered by: ARYA Worley on 08/09/23 15:34 Dose Route Admin Location Dispensed Lot Number Expiration Date NDC Sales Account Specialist 0.5 mL IM Right Deltoid 0.5 mL [id number] 09/27/24 [employer] VIS Given Date VIS Provided VIS Publication Date 08/09/23 Single Vaccine 21 Eligibility Eligibility Date Funding Source Not [facility] Eligible 08/09/23 Private Assessment and Plan Assessment & Plan (1) Type 2 diabetes mellitus with unspecified complications: Code(s): E11.8 - Type 2 diabetes mellitus with unspecified complications Plan: Patient's type 2 diabetes controlled on current dose of metformin. Goal A1c to be below 7.0 Will add on Ozempic to help with glycemic control and for added benefit of weight loss. (2) Essential hypertension: Code(s): I10 - Essential (primary) hypertension Plan: Patient's blood pressure acceptable today in office. Will continue his current antihypertensive medication with goal blood pressure to be below 140/90 (3) CAD (coronary artery disease): Code(s): I25.10 - Atherosclerotic heart disease of [place] coronary artery without angina pectoris Qualifiers: Associated angina: without angina Coronary Disease-Associated Artery/Lesion type: [place] artery [place] vs. transplanted heart: [place] heart Qualified Code(s): I25.10 - Atherosclerotic heart disease of [place] coronary artery without angina pectoris Plan: Patient continues to follow cardiology on annual basis. Most recent lipid panel showing appropriate LDL at 74. He denies any chest pain, shortness of breath, dizziness. Will continue aspirin therapy (4) Obese: Code(s): E66.9 - Obesity, unspecified Qualifiers: Body mass index: BMI 31.0-31.9 Obesity classification: adult class 1 (BMI 30 - 34.9) Obesity type: due to excess calories Serious obesity comorbidity presence: with serious comorbidity Qualified Code(s): E66.09 - Other obesity due to excess calories; Z68.31 - Body mass index [BMI] 31.0-31.9, adult Plan: Has lost weight since last office visit intentionally.. Patient does understand his BMI is over 30 will work on being more physically active and adapting to better eating habits to reduce his weight. (5) Post-laminectomy syndrome: Code(s): M96.1 - Postlaminectomy syndrome, not elsewhere classified Plan: As per HPI patient has a long history of lumbar spine chronic pain. Continues on gabapentin and meloxicam with decent relief of his lumbar spine pain. (6) ISMA (obstructive sleep apnea): Code(s): G47.33 - Obstructive sleep apnea (adult) (pediatric) Plan: Patient continues on nightly use of CPAP machine with good effect. (7) Impacted cerumen of right ear: Code(s): H61.21 - Impacted cerumen, right ear Plan: Flushed right ear today in office with large amounts of cerumen dislodged. Orders: Orders Pneumococcal 20 Immunization 08/09/23 E11.8 - Type 2 diabetes mellitus with unspecified complications, Z23 - Encounter for immunization Medications: New semaglutide (Ozempic) for 4 weeks 0.25 mg (0.368 mL) subcut QWEEK 4 weeks 3 mL 1RF E11.8 - Type 2 diabetes mellitus with unspecified complications lisinopril-hydrochlorothiazide 10-12.5 mg 1 tab PO BID 90 days 180 tabs 1RF E11.8 - Type 2 diabetes mellitus with unspecified complications, I10 - Essential (primary) hypertension Discontinued hydrochlorothiazide Discontinued Reason: Doctor's Order 25 mg PO DAILY 90 days 90 tabs 0RF I10 - Essential (primary) hypertension Coding Level of Care Code Est Pt Level 4 (05482) Diagnoses Type 2 diabetes mellitus with unspecified complications E11.8 Essential hypertension I10 Coronary artery disease involving [place] coronary artery of [place] heart without angina pectoris I25.10 Associated angina: without angina Coronary Disease-Associated Artery/Lesion type: [place] artery [place] vs. transplanted heart: [place] heart Class 1 obesity due to excess calories with serious comorbidity and body mass index (BMI) of 31.0 to 31.9 in adult E66.09; Z68.31 Body mass index: BMI 31.0-31.9 Obesity classification: adult class 1 (BMI 30 - 34.9) Obesity type: due to excess calories Serious obesity comorbidity presence: with serious comorbidity Post-laminectomy syndrome M96.1 ISMA (obstructive sleep apnea) G47.33 Impacted cerumen of right ear H61.21 CPT Codes Office Procedure - CPT: 81497-Yvm Irrigation/Lavage ([id number])
== END 2023-08-09 15:48 | disposition home or self-care (01) ==
PROVIDERS: PCP Physician Assistant; Visit Provider Physician Assistant
DX: E11.8 Type 2 diabetes mellitus with unspecified complications (principal); I10 Essential (primary) hypertension; I25.10 Atherosclerotic heart disease of native coronary artery without angina pectoris; E66.09 Other obesity due to excess calories; Z68.31 Body mass index [BMI] 31.0-31.9, adult; M96.1 Postlaminectomy syndrome, not elsewhere classified; G47.33 Obstructive sleep apnea (adult) (pediatric); H61.21 Impacted cerumen, right ear
CPT/HCPCS: 69209; 90471; 90677; 99214

== ENCOUNTER 2023-08-11 06:47 | Outpatient (REF) | payer MEDICARE, OTHER, SELFPAY ==
[2023-08-11 11:03] LABS: Hematocrit 43.3 % (42.0-52.0); Mean Corpuscular HGB Conc 32.3 g/dl (31.0-36.0); Mean Corpuscular Hemoglobin 30.4 pg (27.0-33.0); Mean Corpuscular Volume 94.1 fL (80.0-98.0); Mean Platelet Volume 10.3 fL (9.4-12.4); Platelet Count 220 X10*3/uL (160-400); Red Cell Distribution Width 12.8 % (11.0-16.0); White Blood Count 8.1 X10*3/uL (4.8-10.8)
[2023-08-11 11:14] LABS: Estimated Average Glucose 120 mg/dL; Hemoglobin A1c % 5.8 % (<6.0)
[2023-08-11 11:19] LABS: Alanine Aminotransferase 20 U/L (0-40); Albumin Level 4.2 g/dL (3.5-5.0); Alkaline Phosphatase 122 U/L (39-117); Anion Gap 15 (12-20); Aspartate Amino Transferase 26 U/L (5-37); Bilirubin Total 0.9 mg/dL (0.0-1.0); Blood Urea Nitrogen 27 mg/dL (9-16); Calcium 9.7 mg/dL (8.4-10.2); Carbon Dioxide 27 mmol/L (22-29); Chloride 103 mmol/L (96-108); Cholesterol 150 mg/dL (<200); Estimated Glomerular Filt Rate > 60; Glucose Fasting 104 mg/dL (60-99); HDL Cholesterol 46 mg/dL (>40); LDL Cholesterol Calculated 81 mg/dL (<100); Sodium 141 mmol/L (135-145); Total Protein 6.8 g/dL (6.5-8.0); Triglycerides 115 mg/dL (<150)
== END 2023-08-11 06:48 | disposition home or self-care (01) ==
LOC: HO.HMGCLDS 06:47
PROVIDERS: PCP Physician Assistant; Visit Provider Physician Assistant
DX: I10 Essential (primary) hypertension (principal); I25.10 Atherosclerotic heart disease of native coronary artery without angina pectoris; E11.8 Type 2 diabetes mellitus with unspecified complications
CPT/HCPCS: 36415; 80053; 80061; 83036; 85027

== ENCOUNTER 2023-11-08 15:10 | Outpatient (AMB) | payer MEDICARE, OTHER, SELFPAY ==
[2023-11-08 15:31] VITALS: BP 100/64; PULSE 87; O2SAT 97; BMI 29.6
--- NOTE | 2023-11-08 15:31 | A.OFFPC_ITS ---
Vital Signs 11/08/23 15:31 Height 5 ft 10 in Weight 206 lb BMI 29.6 BP 100/64 Blood Pressure Location Lt brachial Position Sitting Pulse 87 Pulse Source Pulse Oximeter Pulse Oximetry (%) 97 Oxygen Delivery Method Room Air Intake Visit Reasons: f/u DMII/ weight check Surgeon Partner Required: No Accompanied by: Self / Same As Patient Allergies No Known Allergies Allergy (Verified 11/08/23 15:50) Medication List - Last Reconciled 11/08/23 by Arnold Guaman PA-C aspirin 81 mg PO DAILY atorvastatin 80 mg PO DAILY 90 days gabapentin 300 mg PO BID 90 days ibuprofen 800 mg PO Q12H lisinopril-hydrochlorothiazide 10-12.5 mg 1 tab PO BID 90 days meloxicam 15 mg PO DAILY 90 days metformin 500 mg PO BID 90 days metoprolol succinate ER 25 mg PO DAILY semaglutide (Ozempic) 0.5 mg (0.736 mL) subcut QWEEK 4 weeks tadalafil 20 mg PO DAILY PRN 7 days triamcinolone acetonide 0.5% 1 appl topical DAILY 15 days Tobacco use date assessed: 01/18/23 HPI f/u DMII/ weight check HPI Details Patient is a 78 year-old male here today for follow-up visit. . Patient has a past medical history significant for hyperlipidemia, impaired glucose metabolism, sleep apnea, chronic lumbar spine pain, essential hypertension. .. CHRONIC MEDICAL CONDITIONS--> Type 2 diabetes:? We have started GLP 1 (Ozempic 0.5 mg weekly) he has not noted any significant weight loss. His A1c is remaining at 5.8. PLAN: Will increase dose of Ozempic to 1 mg weekly for added benefit of weight loss. .. Lumbar spondylosis / Disc herniation:? He does report getting surgery on his lumbar spine 15 years ago for disc herniation which did help reduce his pain.? Over the last several years his pain in his back has gotten worse.? He does use gabapentin 100 mg b.i.d. along with ibuprofen. ? .. ? Hypertension:? Blood pressure acceptable elevated today in office. He reports that home blood pressures are slightly elevated 140 systolic. He reports he has not been monitoring his blood pressures at home.? Denies any chest pains, shortness of breath or headaches. .. Obstructive sleep apnea: Uses CPAP on a nightly basis with good effect. .. Aortic Valve calcification/ CAD:? Is followed by Cardiology on a six-month basis.? ? He denies any shortness of breath, chest discomfort, headaches or dizziness.? PFSH Medical History Post-laminectomy syndrome Lumbar spondylosis Atherosclerotic cardiovascular disease Knee osteoarthritis Surgical History History of total right knee replacement Status post right knee replacement History of lumbar surgery History of adenoidectomy Hx of prior ablation treatment Hx of nasal septoplasty History of appendectomy Family History Father CHF (congestive heart failure) Mother Dementia Breast cancer Social History Housing: House Alcohol intake: current Alcohol intake frequency: a few times a week Alcohol type: hard liquor Patient Tobacco Use Status: Former Tobacco user Quit Date: 45 years ago Tobacco use type: Cigarette e-Cigarette/Vaping Use: Never Used Second Hand Smoke Exposure: No service: Yes Current occupational status: employed and retired Current occupation: [employer] Cognitive needs: No Hearing needs: No Vision needs: Yes Questionnaire PHQ-9 Over the last 2 weeks, how often have you been bothered by any of the following problems? 1. Little interest or pleasure in doing things: not at all 2. Feeling down, depressed, or hopeless: not at all 3. Trouble falling or staying asleep, or sleeping too much: not at all 4. Feeling tired or having little energy: not at all 5. Poor appetite or overeating: not at all 6. Feeling bad about yourself - or that you are a failure or have let yourself or your family down: not at all 7. Trouble concentrating on things, such as reading the newspaper or watching television: not at all 8. Moving or speaking so slowly that other people could have noticed. Or the opposite - being so fidgety or restless that you have been moving around a lot more than usual: not at all 9. Thoughts that you would be better off or of hurting yourself in some way: not at all Total score: 0 Depression Screening Interpretation: Negative Depression Screening Done: Yes 71901 - PHQ-9 Billing: Yes Source: Developed by Drs. Yaron Gallegos, Pat Hdz, Ernesto Gustafson and colleagues, with an educational meg from [employer]. Thrive Questionnaire Date Thrive assessed: 11/08/23 I am a: Patient What is your living situation today?: I have a steady place to live Within the past 12 months, did the food you bought not last and you didn't have the money to get more?: Never true Within the past 12 months, did you worry whether your food would run out before you got money to buy more?: Never true Do you have trouble paying for medicines?: No Do you have trouble getting transportation to medical appointments?: No Do you have trouble paying your heating and electricity bill?: No Do you have trouble taking care of your child, family member or friend?: No Do you have trouble with day-to-day activities such as bathing, preparing meals, shopping, managing finances, etc.?: No Are you currently unemployed and looking for a job?: No Are you interested in more education?: No Please select the resources that you would like help with: None Currently or been in a relationship where the following occur: no concerns reported THRIVE Score: 0 AUDIT C Alcohol Use Questionnaire (AUDIT-C) 1. How often do you have a drink containing alcohol?: Monthly or less 2. How many drinks containing alcohol do you have on a typical day when you are drinking?: 1 or 2 3. How often do you have six or more drinks on one occasion?: Never Total Score: 1 MATTHIAS-7 AMB Questionnaire MATTHIAS-7 Date MATTHIAS - 7 assessed: 11/08/23 Feeling nervous, anxious, or on edge: 0 = Not at all Not being able to stop or control worryin = Not at all Worrying too much about different things: 0 = Not at all Trouble relaxin = Not at all Being so restless that it is hard to sit still: 0 = Not at all Becoming easily annoyed or irritable: 0 = Not at all Feeling afraid as if something awful might happen: 0 = Not at all Total MATTHIAS-7 score (0-4 normal; 5-9 mild; 10-14 moderate; 15-21 severe): 0 Source: Developed by Drs. Yaron Gallegos, Pat Hdz, Ernesto Gustafson and colleagues, with an educational meg from [employer]. MATTHIAS-7 Assessment Billing MATTHIAS-7 Assessment Tool: MATTHIAS-7 Assessment 26642 Review of Systems Const Denies headache(s) Eyes Denies loss of vision ENT Denies vertigo, Denies dizziness, Denies headache(s) and Denies sore throat Card Denies chest pain, Denies leg edema and Denies lightheadedness Resp Denies cough, Denies hemoptysis and Denies wheezing GI Denies abdominal pain, Denies melena, Denies constipation, Denies diarrhea and Denies vomiting Denies dysuria, Denies urinary frequency and Denies urinary urgency Musc Denies arthralgias, Denies joint swelling, Denies numbness and Denies tingling Neuro Denies Abnormal speech present, Denies behavioral changes, Denies vertigo, Denies dizziness, Denies headache(s), Denies loss of vision, Denies memory loss, Denies numbness and Denies tingling Psych Denies anxiety, Denies behavioral changes, Denies depression, Denies memory loss and Denies panic attacks Aldo/Lymph Denies easy bleeding and Denies easy bruising Aller/Immun Denies wheezing Physical exam (Primary Care) Vital Signs: Last Vital Signs Pulse 87 11/08/23 15:31 BP 100/64 11/08/23 15:31 Pulse Ox 97 11/08/23 15:31 Oxygen Delivery Method Room Air 11/08/23 15:31 BMI result Body Mass Index 29.6 Tobacco/Smoking Status: Tobacco use Status Tobacco use date assessed 01/18/23 11/08/23 15:33 Patient Tobacco Use Status Former Tobacco user 11/08/23 15:33 Tobacco use type Cigarette 11/08/23 15:33 e-Cigarette/Vaping Use Never Used 11/08/23 15:33 PHQ-9: PHQ-9 Score PHQ-9: Total score 0 11/08/23 15:54 Depression Screening Interpretation: Negative Thrive Assessment: Date of Thrive Assessment Date Thrive assessed 11/08/23 11/08/23 15:33 Currently or been in a relationship where the following occur: no concerns reported Const General: healthy appearing, no acute distress, alert and awake Nutritional Appearance: well nourished Orientation/consciousness: oriented to person, oriented to place and oriented to time HENMT Ears: TM's normal bilaterally General nose exam: Normal nasal mucous membranes and turbinates present Eyes Conjunctivae: conjunctivae normal Sclerae: sclerae normal Pupils: Equal, round and reactive pupils present Neck Neck: Yes no lymphadenopathy and Yes no JVD Thyroid: Thyroid normal Carotids: no bruits Resp Effort & Inspection: normal respiratory effort and not tachypneic Auscultation: no crackles, no rales, no rhonchi and no wheezes Cardio Rate: regular rate Rhythm: regular rhythm Heart sounds: no murmurs and normal S1 and S2 GI Palpation (GI): Soft to palpation, nontender, no hepatomegaly and no splenomegaly Auscultation: normal bowel sounds Skin General skin exam: no rashes or lesions noted and dry skin Neuro General: oriented to person, oriented to place and oriented to time Cranial nerves: Yes Equal, round and reactive pupils present Speech: No Abnormal speech present Gait exam (Neuro): Normal gait present Motor exam (neuro): no tremor noted Extrem Right upper extremity: full ROM Left upper extremity: full ROM Right lower extremity: full ROM; no edema Left lower extremity: full ROM; no edema Psych Mental Status: mental status grossly normal Speech and movement: Normal speech and movement present Affect: normal affect Attitude: cooperative Thought process: Normal thought process present Results AMB Hemoglobin A1c AMB Hemoglobin A1c 5.8 % Last Edit by ARYA Worley on 11/08/23 16:05 Results Reviewed Results Reviewed: Laboratory Last Values Hgb A1c (Clinic) 5.8 % (4.0-6.0) 11/08/23 15:49 Assessment and Plan Assessment & Plan (1) Type 2 diabetes mellitus with unspecified complications: Code(s): E11.8 - Type 2 diabetes mellitus with unspecified complications Plan: Patient's type 2 diabetes controlled on current dose of metformin. Goal A1c to be below 7.0 Has added Ozempic though A1c still at 5.8. Has not lost much weight. He would like to increase his dose to 1 mg for added benefit of weight loss (2) Obese: Code(s): E66.9 - Obesity, unspecified Qualifiers: Body mass index: BMI 31.0-31.9 Obesity classification: adult class 1 (BMI 30 - 34.9) Obesity type: due to excess calories Serious obesity comorbidity presence: with serious comorbidity Qualified Code(s): E66.09 - Other obesity due to excess calories; Z68.31 - Body mass index [BMI] 31.0-31.9, adult Plan: Has not lost any significant amount of weight since starting on Ozempic. He would like to increase dose of Ozempic for added benefit of weight loss per Patient does understand his BMI is over 30 will work on being more physically active and adapting to better eating habits to reduce his weight. (3) Essential hypertension: Code(s): I10 - Essential (primary) hypertension Plan: Patient's blood pressure acceptable today in office. Will continue his current antihypertensive medication with goal blood pressure to be below 140/90 (4) CAD (coronary artery disease): Code(s): I25.10 - Atherosclerotic heart disease of [place] coronary artery without angina pectoris Qualifiers: Associated angina: without angina Coronary Disease-Associated Artery/Lesion type: [place] artery [place] vs. transplanted heart: [place] heart Qualified Code(s): I25.10 - Atherosclerotic heart disease of [place] coronary artery without angina pectoris Plan: Patient continues to follow cardiology on annual basis. Most recent lipid panel showing appropriate LDL at 74. He denies any chest pain, shortness of breath, dizziness. Will continue aspirin therapy Orders: Orders Comprehensive [place]. Panel Fast 11/10/23 E11.8 - Type 2 diabetes mellitus with unspecified complications Microalbumin, Random (w Creat) 11/10/23 I10 - Essential (primary) hypertension Prostate Specific Antigen Scr 11/10/23 I10 - Essential (primary) hypertension, Z12.5 - Encounter for screening for malignant neoplasm of prostate Testosterone, Free/Total 11/10/23 E66.09 - Other obesity due to excess calories, Z68.31 - Body mass index [BMI] 31.0-31.9, adult AMB Hemoglobin A1c 11/08/23 E11.8 - Type 2 diabetes mellitus with unspecified complications Lipid Panel 11/10/23 I25.10 - Atherosclerotic heart disease of [place] coronary artery without angina pectoris Medications: New semaglutide (Ozempic) 1 mg (0.75 mL) subcut QWEEK 4 weeks 3 mL 3RF E11.8 - Type 2 diabetes mellitus with unspecified complications Discontinued semaglutide (Ozempic) for 4 weeks Discontinued Reason: Doctor's Order 0.5 mg (0.736 mL) subcut QWEEK 4 weeks 3 mL 3RF E11.8 - Type 2 diabetes mellitus with unspecified complications Coding Level of Care Code Est Pt Level 4 (29604) Diagnoses Type 2 diabetes mellitus with unspecified complications E11.8 Class 1 obesity due to excess calories with serious comorbidity and body mass index (BMI) of 31.0 to 31.9 in adult E66.09; Z68.31 Body mass index: BMI 31.0-31.9 Obesity classification: adult class 1 (BMI 30 - 34.9) Obesity type: due to excess calories Serious obesity comorbidity presence: with serious comorbidity Essential hypertension I10 Coronary artery disease involving [place] coronary artery of [place] heart without angina pectoris I25.10 Associated angina: without angina Coronary Disease-Associated Artery/Lesion type: [place] artery [place] vs. transplanted heart: [place] heart Additional Codes MATTHIAS-7 Assessment Billing - MATTHIAS-7 Assessment Tool: MATTHIAS-7 Assessment [id number] ([id number])
== END 2023-11-08 16:10 | disposition home or self-care (01) ==
PROVIDERS: PCP Physician Assistant; Visit Provider Physician Assistant
DX: E11.8 Type 2 diabetes mellitus with unspecified complications (principal); E66.09 Other obesity due to excess calories; Z68.31 Body mass index [BMI] 31.0-31.9, adult; I10 Essential (primary) hypertension; I25.10 Atherosclerotic heart disease of native coronary artery without angina pectoris
CPT/HCPCS: 83036; 99214

== ENCOUNTER 2023-11-10 07:37 | Outpatient (REF) | payer MEDICARE, OTHER, SELFPAY ==
[2023-11-10 12:32] LABS: Alanine Aminotransferase 36 U/L (0-40); Albumin Level 4.3 g/dL (3.5-5.0); Alkaline Phosphatase 105 U/L (39-117); Anion Gap 12 (12-20); Aspartate Amino Transferase 30 U/L (5-37); Bilirubin Total 0.9 mg/dL (0.0-1.0); Blood Urea Nitrogen 25 mg/dL (9-16); Calcium 10.1 mg/dL (8.4-10.2); Carbon Dioxide 27 mmol/L (22-29); Chloride 106 mmol/L (96-108); Cholesterol 135 mg/dL (<200); Estimated Glomerular Filt Rate 54; Glucose Fasting 96 mg/dL (60-99); HDL Cholesterol 42 mg/dL (>40); LDL Cholesterol Calculated 74 mg/dL (<100); Potassium 4.7 mmol/L (3.3-5.1); Sodium 140 mmol/L (135-145); Total Protein 6.8 g/dL (6.5-8.0); Triglycerides 98 mg/dL (<150)
[2023-11-10 12:44] LABS: Prostate Specific Antigen Scr 0.75 ng/mL (<0.05-4.0)
[2023-11-10 13:06] LABS: Creatinine Urine 40.38 mg/dL; Microalbumin Urine < 5.0 mg/L
[2023-11-15 14:53] LABS: Testosterone, Free 58.7 pg/mL (30.0-135.0); Testosterone, Total 358 ng/dL (250-1100)
== END 2023-11-10 07:38 | disposition home or self-care (01) ==
LOC: HO.HMGCLDS 07:37
PROVIDERS: PCP Physician Assistant; Visit Provider Physician Assistant
DX: E66.09 Other obesity due to excess calories (principal); I10 Essential (primary) hypertension; I25.10 Atherosclerotic heart disease of native coronary artery without angina pectoris; E11.8 Type 2 diabetes mellitus with unspecified complications; Z12.5 Encounter for screening for malignant neoplasm of prostate; Z68.31 Body mass index [BMI] 31.0-31.9, adult
CPT/HCPCS: 36415; 80053; 80061; 82043; 82570; 84153; 84402; 84403

== ENCOUNTER 2024-02-12 15:29 | Outpatient (AMB) | payer MEDICARE, OTHER, SELFPAY ==
[2024-02-12 15:37] VITALS: BP 90/58; PULSE 92; O2SAT 93; BMI 27.8
--- NOTE | 2024-02-12 15:37 | MHC.PC.OV ---
Vital Signs 02/12/24 15:37 Height 5 ft 10 in Weight 194 lb BMI 27.8 BP 90/58 L Blood Pressure Location Lt brachial Position Sitting Pulse 92 Pulse Source Pulse Oximeter Pulse Oximetry (%) 93 Oxygen Delivery Method Room Air Intake Visit Reasons: f/u dmii/ wieght check Communications Officer Required: No Accompanied by: Self / Same As Patient Allergies No Known Allergies Allergy (Verified 02/12/24 15:42) Medication List - Last Reconciled 02/12/24 by Arnold Guaman PA-C aspirin 81 mg PO DAILY atorvastatin 80 mg PO DAILY 90 days gabapentin 300 mg PO BID 90 days ibuprofen 800 mg PO Q12H lisinopril-hydrochlorothiazide 10-12.5 mg 1 tab PO BID 90 days meloxicam 15 mg PO DAILY 90 days metformin 500 mg PO BID 90 days metoprolol succinate ER 25 mg PO DAILY semaglutide (Ozempic) 1 mg (0.75 mL) subcut QWEEK 4 weeks tadalafil 20 mg PO DAILY PRN 7 days tramadol 50 - 100 mg PO QID PRN triamcinolone acetonide 0.5% 1 appl topical DAILY 15 days Tobacco use date assessed: 02/12/24 Fall risk assessment: No Falls in past year Last assessed Fall Risk: 02/12/24 Dental Screening Dental Screen Date: 02/12/24 Did you have a dental visit in the last 12 months?: Yes Did you have a dental problem in the last 6 months where you did not have access to dental care?: No Was dental information given to patient?: Patient has dentist HPI f/u dmii/ wieght check HPI Details Patient is a 79 year-old male here today for follow-up visit. . Patient has a past medical history significant for hyperlipidemia, impaired glucose metabolism, sleep apnea, chronic lumbar spine pain, essential hypertension. RECENTLY UNDERWENT HIP ARTHROPLASTY 1 WEEK AGO AND NOW IN THERAPY. .. CHRONIC MEDICAL CONDITIONS--> Type 2 diabetes:? We have increased his Ozempic to 1 mg and has lost more weight.. .. Lumbar spondylosis / Disc herniation:? He does report getting surgery on his lumbar spine 15 years ago for disc herniation which did help reduce his pain.? Over the last several years his pain in his back has gotten worse.? He does use gabapentin 100 mg b.i.d. along with ibuprofen. He does report tramadol 50 mg has worked excellent for pain control on as needed basis. ? .. ? Hypertension:? Blood pressure on the low side today in office. He is asymptomatic.. Has lost significant amount of weight. Will decrease his lisinopril to once a day dosing. He reports he has not been monitoring his blood pressures at home.? Denies any chest pains, shortness of breath or headaches. .. Obstructive sleep apnea: Uses CPAP on a nightly basis with good effect. .. Aortic Valve calcification/ CAD:? Is followed by Cardiology on a six-month basis.? ? He denies any shortness of breath, chest discomfort, headaches or dizziness. [facility] Medical History Post-laminectomy syndrome Lumbar spondylosis Atherosclerotic cardiovascular disease Knee osteoarthritis Surgical History History of total right knee replacement Status post right knee replacement History of lumbar surgery History of adenoidectomy Hx of prior ablation treatment Hx of nasal septoplasty History of appendectomy Family History Father CHF (congestive heart failure) Mother Dementia Breast cancer Social History Housing: House Alcohol intake: current Alcohol intake frequency: a few times a week Alcohol type: hard liquor Patient Tobacco Use Status: Former Tobacco user Tobacco use type: Cigarette e-Cigarette/Vaping Use: Never Used Second Hand Smoke Exposure: No service: Yes Current occupational status: employed and retired Current occupation: [employer] Cognitive needs: No Hearing needs: No Vision needs: Yes Questionnaire Thrive Questionnaire Date Thrive assessed: 11/08/23 MATTHIAS-7 AMB Questionnaire MATTHIAS-7 Date MATTHIAS - 7 assessed: 11/08/23 Source: Developed by Drs. Yaron Gallegos, Pat Hdz, Ernesto Gustafson and colleagues, with an educational meg from [employer]. Review of Systems Const Denies headache(s) Eyes Denies loss of vision ENT Denies vertigo, Denies dizziness, Denies headache(s) and Denies sore throat Card Denies chest pain, Denies leg edema and Denies lightheadedness Resp Denies cough, Denies hemoptysis and Denies wheezing GI Denies abdominal pain, Denies melena, Denies constipation, Denies diarrhea and Denies vomiting Denies dysuria, Denies urinary frequency and Denies urinary urgency Musc Denies arthralgias, Denies joint swelling, Denies numbness and Denies tingling Neuro Denies Abnormal speech present, Denies behavioral changes, Denies vertigo, Denies dizziness, Denies headache(s), Denies loss of vision, Denies memory loss, Denies numbness and Denies tingling Psych Denies anxiety, Denies behavioral changes, Denies depression, Denies memory loss and Denies panic attacks Aldo/Lymph Denies easy bleeding and Denies easy bruising Aller/Immun Denies wheezing Physical exam (Primary Care) Vital Signs: Last Vital Signs Pulse 92 02/12/24 15:37 BP 90/58 L 02/12/24 15:37 Pulse Ox 93 02/12/24 15:37 Oxygen Delivery Method Room Air 02/12/24 15:37 BMI result Body Mass Index 27.8 Tobacco/Smoking Status: Tobacco use Status Tobacco use date assessed 02/12/24 02/12/24 15:43 Patient Tobacco Use Status Former Tobacco user 02/12/24 15:43 Tobacco use type Cigarette 02/12/24 15:43 e-Cigarette/Vaping Use Never Used 02/12/24 15:43 Thrive Assessment: Date of Thrive Assessment Date Thrive assessed 11/08/23 02/12/24 15:43 Const General: healthy appearing, no acute distress, alert and awake Nutritional Appearance: well nourished Orientation/consciousness: oriented to person, oriented to place and oriented to time [facility] Ears: TM's normal bilaterally General nose exam: Normal nasal mucous membranes and turbinates present Eyes Conjunctivae: conjunctivae normal Sclerae: sclerae normal Pupils: Equal, round and reactive pupils present Neck Neck: Yes no lymphadenopathy and Yes no JVD Thyroid: Thyroid normal Carotids: no bruits Resp Effort & Inspection: normal respiratory effort and not tachypneic Auscultation: no crackles, no rales, no rhonchi and no wheezes Cardio Rate: regular rate Rhythm: regular rhythm Heart sounds: no murmurs and normal S1 and S2 GI Palpation (GI): Soft to palpation, nontender, no hepatomegaly and no splenomegaly Auscultation: normal bowel sounds Skin General skin exam: no rashes or lesions noted and dry skin Neuro General: oriented to person, oriented to place and oriented to time Cranial nerves: Yes Equal, round and reactive pupils present Speech: No Abnormal speech present Gait exam (Neuro): Normal gait present Motor exam (neuro): no tremor noted Extrem Right upper extremity: full ROM Left upper extremity: full ROM Right lower extremity: full ROM; no edema Left lower extremity: full ROM; no edema Psych Mental Status: mental status grossly normal Speech and movement: Normal speech and movement present Affect: normal affect Attitude: cooperative Thought process: Normal thought process present Results AMB Hemoglobin A1c AMB Hemoglobin A1c 5.4 % Last Edit by ARYA Worley on 02/12/24 15:49 Assessment and Plan Assessment & Plan (1) Type 2 diabetes mellitus with unspecified complications: Code(s): E11.8 - Type 2 diabetes mellitus with unspecified complications Plan: Patient's type 2 diabetes controlled on current dose of metformin and Ozempic 1 mg weekly. Goal A1c to be below 7.0 Today's A1c at 5.4. Has lost a significant amount of weight.. Will consider reducing metformin dose. (2) Essential hypertension: Code(s): I10 - Essential (primary) hypertension Plan: Patient's blood pressure acceptable today in office. Will continue his current antihypertensive medication with goal blood pressure to be below 140/90 (3) CAD (coronary artery disease): Code(s): I25.10 - Atherosclerotic heart disease of [place] coronary artery without angina pectoris Qualifiers: Coronary Disease-Associated Artery/Lesion type: [place] artery [place] vs. transplanted heart: [place] heart Associated angina: without angina Qualified Code(s): I25.10 - Atherosclerotic heart disease of [place] coronary artery without angina pectoris Plan: Patient continues to follow cardiology on annual basis. Most recent lipid panel showing appropriate LDL at 74. He denies any chest pain, shortness of breath, dizziness. Will continue aspirin therapy (4) Lumbar radiculitis: Code(s): M54.16 - Radiculopathy, lumbar region Plan: Continues to have lower lumbar spine pain and has been controlling his pain with gabapentin and ibuprofen. Has found the tramadol has offered him relief. Willing to give him tramadol 50 mg to take on an as needed basis for his lower back pain. Patient is Not interested in further surgeries or physical therapy for his back Orders: Orders Comprehensive [place]. Panel Fast Today E11.8 - Type 2 diabetes mellitus with unspecified complications Lipid Panel Today I25.10 - Atherosclerotic heart disease of [place] coronary artery without angina pectoris AMB Hemoglobin A1c Today E11.8 - Type 2 diabetes mellitus with unspecified complications Complete Blood Count no Diff Today E11.8 - Type 2 diabetes mellitus with unspecified complications Medications: New tramadol 50 mg PO TID 7 days PRN 21 tabs 0RF pain M54.16 - Radiculopathy, lumbar region Refilled atorvastatin 80 mg PO DAILY 90 days 90 tabs 1RF I25.10 - Atherosclerotic heart disease of [place] coronary artery without angina pectoris Patient Instructions: Goals: A1c to remain below 7.0, LDL to optimally below 70 Barriers: Adherence to physical activity and healthy eating habits Coding Level of Care Code Est Pt Level 4 (62219) Complex EM visit Add On G2211 Diagnoses Type 2 diabetes mellitus with unspecified complications E11.8 Essential hypertension I10 Coronary artery disease involving [place] coronary artery of [place] heart without angina pectoris I25.10 Coronary Disease-Associated Artery/Lesion type: [place] artery [place] vs. transplanted heart: [place] heart Associated angina: without angina Lumbar radiculitis M54.16
== END 2024-02-12 16:10 | disposition home or self-care (01) ==
PROVIDERS: PCP Physician Assistant; Visit Provider Physician Assistant
DX: E11.8 Type 2 diabetes mellitus with unspecified complications (principal); I10 Essential (primary) hypertension; I25.10 Atherosclerotic heart disease of native coronary artery without angina pectoris; M54.16 Radiculopathy, lumbar region
CPT/HCPCS: 83036; 99214; G2211

== ENCOUNTER 2024-03-11 08:57 | Outpatient (AMB) | payer MEDICARE, OTHER, SELFPAY ==
--- NOTE | 2024-03-11 09:01 | A.OFFPC_ITS ---
Vital Signs 03/11/24 09:02 Height 5 ft 10 in Weight 190 lb BMI 27.3 BP 120/60 Blood Pressure Location Lt brachial Position Sitting Pulse 90 Pulse Source Pulse Oximeter Pulse Oximetry (%) 96 Oxygen Delivery Method Room Air Intake Visit Reasons: Crackling in Lungs s/p hip sx Intake Note: Patient is here for hospital discharge follow up. Patient was discharged from [facility] on 03/05/24. 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 Accompanied by: staff Allergies No Known Allergies Allergy (Verified 03/11/24 09:18) Medication List - Last Reconciled 03/11/24 by Arnold Guaman PA-C aspirin 81 mg PO DAILY atorvastatin 80 mg PO DAILY 90 days gabapentin 300 mg PO BID 90 days ibuprofen 800 mg PO Q12H lisinopril-hydrochlorothiazide 10-12.5 mg 1 tab PO BID 90 days meloxicam 15 mg PO DAILY 90 days metformin 500 mg PO BID 90 days metoprolol succinate ER 25 mg PO DAILY semaglutide (Ozempic) 1 mg (0.75 mL) subcut QWEEK 4 weeks tadalafil 20 mg PO DAILY PRN 7 days tramadol 50 mg PO TID PRN 7 days triamcinolone acetonide 0.5% 1 appl topical DAILY 15 days Tobacco use date assessed: 03/11/24 Fall risk assessment: 1 Fall in past year Last assessed Fall Risk: 03/11/24 Dental Screening Dental Screen Date: 02/12/24 HPI Crackling in Lungs s/p hip sx HPI Details Patient is a 79-year-old male here today for hospital discharge follow- up. He was seen at [facility] ER for acute weakness, visual hallucinations and feeling of general malaise. He was found to be febrile and slightly hypotensive. He was status post hip replacement thus CT of pelvis done showing 2 fluid collections. Patient underwent an IR guided fluid sample and was started on fluids and IV antibiotics. He required additional surgery for her joint washout. Now [facility] to [facility] IV antibiotics. He reports he is feeling okay and has minimal pain. Does use tramadol on a p.r.n. basis for his pain at night and needs a refill on this [facility] Medical History (Updated 03/11/24 @ 09:20 by Arnold Guaman PA-C) Post-laminectomy syndrome Lumbar spondylosis Atherosclerotic cardiovascular disease Knee osteoarthritis Surgical History History of hip surgery History of total right knee replacement Status post right knee replacement History of lumbar surgery History of adenoidectomy Hx of prior ablation treatment Hx of nasal septoplasty History of appendectomy Family History Father CHF (congestive heart failure) Mother Dementia Breast cancer Social History Housing: House Alcohol intake: current Alcohol intake frequency: a few times a week Alcohol type: hard liquor Patient Tobacco Use Status: Former Tobacco user Tobacco use type: Cigarette e-Cigarette/Vaping Use: Never Used Second Hand Smoke Exposure: No service: Yes Current occupational status: employed and retired Current occupation: [employer] Cognitive needs: No Hearing needs: No Vision needs: Yes Questionnaire Thrive Questionnaire Date Thrive assessed: 11/08/23 MATTHIAS-7 AMB Questionnaire MATTHIAS-7 Date MATTHIAS - 7 assessed: 11/08/23 Source: Developed by Drs. Yaron Gallegos, Pat Hdz, Ernesto Gustafson and colleagues, with an educational meg from [employer]. Review of Systems Const Denies headache(s) Eyes Denies loss of vision ENT Denies vertigo, Denies dizziness, Denies headache(s) and Denies sore throat Card Denies chest pain, Denies leg edema and Denies lightheadedness Resp Denies cough, Denies hemoptysis and Denies wheezing GI Denies abdominal pain, Denies melena, Denies constipation, Denies diarrhea and Denies vomiting Denies dysuria, Denies urinary frequency and Denies urinary urgency Musc Denies arthralgias, Denies joint swelling, Denies numbness and Denies tingling Neuro Denies Abnormal speech present, Denies behavioral changes, Denies vertigo, Denies dizziness, Denies headache(s), Denies loss of vision, Denies memory loss, Denies numbness and Denies tingling Psych Denies anxiety, Denies behavioral changes, Denies depression, Denies memory loss and Denies panic attacks Aldo/Lymph Denies easy bleeding and Denies easy bruising Aller/Immun Denies wheezing Physical exam (Primary Care) Vital Signs: Last Vital Signs Pulse 90 03/11/24 09:02 BP 120/60 03/11/24 09:02 Pulse Ox 96 03/11/24 09:02 Oxygen Delivery Method Room Air 03/11/24 09:02 BMI result Body Mass Index 27.3 Tobacco/Smoking Status: Tobacco use Status Tobacco use date assessed 03/11/24 03/11/24 09:04 Patient Tobacco Use Status Former Tobacco user 03/11/24 09:04 Tobacco use type Cigarette 03/11/24 09:04 e-Cigarette/Vaping Use Never Used 03/11/24 09:04 Thrive Assessment: Date of Thrive Assessment Date Thrive assessed 11/08/23 03/11/24 09:04 Const General: healthy appearing, no acute distress, alert and awake Nutritional Appearance: well nourished Orientation/consciousness: oriented to person, oriented to place and oriented to time HENMT Ears: TM's normal bilaterally General nose exam: Normal nasal mucous membranes and turbinates present Eyes Conjunctivae: conjunctivae normal Sclerae: sclerae normal Pupils: Equal, round and reactive pupils present Neck Neck: Yes no lymphadenopathy and Yes no JVD Thyroid: Thyroid normal Carotids: no bruits Resp Effort & Inspection: normal respiratory effort and not tachypneic Auscultation: no crackles, no rales, no rhonchi and no wheezes Cardio Rate: regular rate Rhythm: regular rhythm Heart sounds: no murmurs and normal S1 and S2 GI Palpation (GI): Soft to palpation, nontender, no hepatomegaly and no splenomegaly Auscultation: normal bowel sounds Skin General skin exam: no rashes or lesions noted and dry skin Neuro General: oriented to person, oriented to place and oriented to time Cranial nerves: Yes Equal, round and reactive pupils present Speech: No Abnormal speech present Gait exam (Neuro): Normal gait present Motor exam (neuro): no tremor noted Extrem Right upper extremity: full ROM Left upper extremity: full ROM Right lower extremity: full ROM; no edema Left lower extremity: full ROM; no edema Psych Mental Status: mental status grossly normal Speech and movement: Normal speech and movement present Affect: normal affect Attitude: cooperative Thought process: Normal thought process present Office Procedures EKG Details: Please see scanned in document [id number], Complete Assessment and Plan Assessment & Plan (1) Left hip prosthetic joint infection: Code(s): T84.52XA - Infection and inflammatory reaction due to internal left hip prosthesis, initial encounter Qualifiers: Encounter type: sequela Qualified Code(s): T84.52XS - Infection and inflammatory reaction due to internal left hip prosthesis, sequela Plan: As per HPI patient had an joint prosthetic infection that required revision surgery. Now on IV antibiotics for the next 6 weeks. Continues to follow-up with his orthopedic surgeon. Doing well postoperatively without any further signs of infection. He is now ambulating with walker assistance. (2) Right bundle branch block: Code(s): I45.10 - Unspecified right bundle-branch block Plan: Noted irregular rhythm on auscultation cardiac exam.. EKG today in office showing right bundle-branch block and PVCs. These are known findings. Orders: Orders AMB EKG-In Office Today I45.10 - Unspecified right bundle-branch block Medications: Changed From tramadol 50 mg PO TID 7 days PRN 21 tabs 0RF pain M54.16 - Radiculopathy, lumbar region To tramadol 50 mg PO TID 5 days 15 tabs 0RF pain M54.16 - Radiculopathy, lumbar region Coding Level of Care Code Est Pt Level 4 (09879) Diagnoses Infection associated with internal left hip prosthesis, sequela T84.52XS Encounter type: sequela Right bundle branch block I45.10 CPT Codes EKG - CPT: 99854-[id number], Complete ([id number])
[2024-03-11 09:02] VITALS: BP 120/60; PULSE 90; O2SAT 96; BMI 27.3
== END 2024-03-11 09:43 | disposition home or self-care (01) ==
PROVIDERS: PCP Physician Assistant; Visit Provider Physician Assistant
DX: T84.52XS Infection and inflammatory reaction due to internal left hip prosthesis, sequela (principal); I45.10 Unspecified right bundle-branch block
CPT/HCPCS: 93000; 99214

== ENCOUNTER 2024-03-19 14:53 | Outpatient (AMB) | payer MEDICARE, OTHER, SELFPAY ==
--- NOTE | 2024-03-19 14:59 | MHC.OFFVIS ---
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 Accompanied by: Spouse Allergies No Known Allergies Allergy (Verified 03/11/24 09:18) Medication List - Last Reconciled 03/19/24 by Josep Garner MD aspirin 81 mg PO DAILY atorvastatin 80 mg PO DAILY 90 days gabapentin 300 mg PO BID 90 days ibuprofen 800 mg PO Q12H lisinopril-hydrochlorothiazide 10-12.5 mg 1 tab PO BID 90 days meloxicam 15 mg PO DAILY 90 days metformin 500 mg PO BID 90 days metoprolol succinate ER 25 mg PO DAILY semaglutide (Ozempic) 1 mg (0.75 mL) subcut QWEEK 4 weeks tadalafil 20 mg PO DAILY PRN 7 days tramadol 50 mg PO TID 5 days triamcinolone acetonide 0.5% 1 appl topical DAILY 15 days HPI Comments Details: Freddie returns for follow-up regarding coronary artery disease. It seems that he is doing quite well. No specific complaints from cardiac and specifically, no angina or anything along those lines. [facility] Medical History (Updated 03/19/24 @ 15:46 by Josep Garner MD) Post-laminectomy syndrome Lumbar spondylosis Atherosclerotic cardiovascular disease Knee osteoarthritis Surgical History History of hip surgery History of total right knee replacement Status post right knee replacement History of lumbar surgery History of adenoidectomy Hx of prior ablation treatment Hx of nasal septoplasty History of appendectomy Family History Father CHF (congestive heart failure) Mother Dementia Breast cancer Social History Housing: House Alcohol intake: current Alcohol intake frequency: a few times a week Alcohol type: hard liquor Patient Tobacco Use Status: Former Tobacco user Tobacco use type: Cigarette e-Cigarette/Vaping Use: Never Used Second Hand Smoke Exposure: No service: Yes Current occupational status: employed and retired Current occupation: [employer] Cognitive needs: No Hearing needs: No Vision needs: Yes Review of Systems Const Denies chills, Denies fatigue, Denies fever(s), Denies weight gain and Denies weight loss ENT Denies dizziness Card Denies chest pain, Reports leg edema, Denies lightheadedness, Denies palpitations, Denies dyspnea on exertion, Denies orthopnea and Denies other Resp Denies cough and Denies dyspnea on exertion GI Denies hematochezia and Denies change in stool character Musc Denies abnormal gait, Denies muscle weakness, Denies numbness, Denies radiating pain into limb and Denies tingling Neuro Denies abnormal gait, Denies dizziness, Denies numbness and Denies tingling Endo Denies fatigue and Denies palpitations Physical Exam Vital Signs: Last Vital Signs Pulse 89 03/19/24 15:01 BP 104/58 L 03/19/24 15:01 BMI result Body Mass Index 28.2 Const General: comfortable and no acute distress Orientation/consciousness: patient oriented x3 HEENT Other: Unremarkable Head: Yes normal to inspection Neck Neck: Yes normal visual inspection Chest Chest palpation & inspection: normal inspection of the chest Resp Auscultation: clear to auscultation bilaterally Cardio Palpation: normal PMI Heart sounds: S1 normal heart sound present, S2 normal heart sound present, no gallops, Murmur heart sound present systolic II/ and at the right sternal border and no rubs GI Palpation (GI): Soft to palpation Back/Spine/Pelvis Other: unremarkable Skin General skin exam: no rashes or lesions noted Neuro General: patient oriented x3 Extrem General: Yes normal to inspection Psych Mental Status: mental status grossly normal Office Procedures EKG Details: EKG with underlying sinus rhythm at 89/Min; right bundle-branch block pattern; [place]. [id number], Complete Assessment & Plan Assessment & Plan (1) Atherosclerotic cardiovascular disease: Code(s): I25.10 - Atherosclerotic heart disease of [place] coronary artery without angina pectoris Category: Medical Plan: Cardiac studies reviewed. Coronary CTA reviewed- 2019- mild, less than 50% stenosis of the mid LAD; [id number] calcification RCA at the proximal to mid junction but no high-grade stenosis. Myocardial perfusion imaging study from 2018 did not show any ischemic findings. He is being treated for stable coronary disease. Clinically, absolutely no angina. (2) Essential hypertension: Code(s): I10 - Essential (primary) hypertension Category: Medical Plan: On metoprolol/lisinopril/hydrochlorothiazide. Blood pressure seems stable. (3) Other and unspecified hyperlipidemia: Code(s): E78.5 - Hyperlipidemia, unspecified Category: Medical Plan: Most recent LDL 74mg/dL. Triglycerides 98 mg/dL. Continue statins. (4) Type 2 diabetes mellitus with unspecified complications: Code(s): E11.8 - Type 2 diabetes mellitus with unspecified complications Category: Medical Plan: On Metformin, Ozempic. Last hemoglobin A1c is 5.4%. (5) Nonrheumatic aortic (valve) stenosis: Code(s): I35.0 - Nonrheumatic aortic (valve) stenosis Category: Medical Plan: In the last echocardiogram, mean gradient across aortic valve 21 mm Hg with a peak of 41 mm Hg. Calculated valve area 1.7 sq cm. We can recheck before next visit. (6) ISMA (obstructive sleep apnea): Code(s): G47.33 - Obstructive sleep apnea (adult) (pediatric) Category: Medical Plan: On CPAP. Orders: Orders CA echo transthoracic complete 1 Year I35.0 - Nonrheumatic aortic (valve) stenosis Coding Level of Care Code Est Pt Level 4 (96774) Diagnoses Atherosclerotic cardiovascular disease I25.10 Essential hypertension I10 Other and unspecified hyperlipidemia E78.5 Type 2 diabetes mellitus with unspecified complications E11.8 Nonrheumatic aortic (valve) stenosis I35.0 ISMA (obstructive sleep apnea) G47.33 CPT Codes EKG - CPT: 65319-[id number], Complete ([id number])
[2024-03-19 15:01] VITALS: BP 104/58; PULSE 89; BMI 28.2
== END 2024-03-19 15:20 | disposition home or self-care (01) ==
PROVIDERS: PCP Physician Assistant; Visit Provider Internal Medicine
DX: I25.10 Atherosclerotic heart disease of native coronary artery without angina pectoris (principal); I10 Essential (primary) hypertension; E78.5 Hyperlipidemia, unspecified; E11.8 Type 2 diabetes mellitus with unspecified complications; I35.0 Nonrheumatic aortic (valve) stenosis; G47.33 Obstructive sleep apnea (adult) (pediatric)
CPT/HCPCS: 93010; 99214

== ENCOUNTER → 2024-03-19 14:53 | Outpatient (BNVA) | payer MEDICARE, OTHER, SELFPAY | PROVIDERS: PCP Physician Assistant; Visit Provider Internal Medicine | DX: I25.10 Atherosclerotic heart disease of native coronary artery without angina pectoris (principal); I10 Essential (primary) hypertension; I35.0 Nonrheumatic aortic (valve) stenosis; E78.5 Hyperlipidemia, unspecified; E11.8 Type 2 diabetes mellitus with unspecified complications; G47.33 Obstructive sleep apnea (adult) (pediatric) | CPT/HCPCS: 93005; 99212 ==

== ENCOUNTER 2024-04-03 15:30 | Outpatient (AMB) | payer MEDICARE, OTHER, SELFPAY ==
--- NOTE | 2024-04-03 15:38 | MHC.PC.OV ---
Vital Signs 04/03/24 15:39 Height 5 ft 10 in Weight 190 lb BMI 27.3 BP 90/52 L Blood Pressure Location Lt brachial Position Sitting Pulse 99 Pulse Source Pulse Oximeter Pulse Oximetry (%) 97 Oxygen Delivery Method Room Air Intake Visit Reasons: EDF 03/30 [facility]-Infection? Allergies No Known Allergies Allergy (Verified 03/11/24 09:18) Tobacco use date assessed: 03/11/24 Dental Screening Dental Screen Date: 02/12/24 HPI EDF 03/30 [facility]-Infection? HPI Details Patient is a 79-year-old male here today for an ER follow-up visit. Patient recently seen at the ER at [facility] for weakness and altered mental status. He was found to be hypotensive. He had fever and diarrhea. CT of abdomen did show colitis with resolution of his left hip pocket infection. Was also found to have a bacteremia. He was started on vanco. Has a PICC line that he is getting IV antibiotics daily at home. Has home visiting nurses doing assessments. Has upcoming appointment at [facility] infectious disease [facility] Medical History (Updated 04/03/24 @ 16:12 by Arnold Guaman PA-C) Post-laminectomy syndrome Lumbar spondylosis Atherosclerotic cardiovascular disease Knee osteoarthritis Surgical History History of hip surgery History of total right knee replacement Status post right knee replacement History of lumbar surgery History of adenoidectomy Hx of prior ablation treatment Hx of nasal septoplasty History of appendectomy Family History Father CHF (congestive heart failure) Mother Dementia Breast cancer Social History Housing: House Alcohol intake: current Alcohol intake frequency: a few times a week Alcohol type: hard liquor Patient Tobacco Use Status: Former Tobacco user Tobacco use type: Cigarette e-Cigarette/Vaping Use: Never Used Second Hand Smoke Exposure: No service: Yes Current occupational status: employed and retired Current occupation: [employer] Cognitive needs: No Hearing needs: No Vision needs: Yes Questionnaire Thrive Questionnaire Date Thrive assessed: 11/08/23 MATTHIAS-7 AMB Questionnaire MATTHIAS-7 Date MATTHIAS - 7 assessed: 11/08/23 Source: Developed by Drs. Yaron Gallegos, Pat Hdz, Ernesto Gustafson and colleagues, with an educational meg from [employer]. Review of Systems Const Denies headache(s) Eyes Denies loss of vision ENT Denies vertigo, Denies dizziness, Denies headache(s) and Denies sore throat Card Denies chest pain, Denies leg edema and Denies lightheadedness Resp Denies cough, Denies hemoptysis and Denies wheezing GI Denies abdominal pain, Denies melena, Denies constipation, Denies diarrhea and Denies vomiting Denies dysuria, Denies urinary frequency and Denies urinary urgency Musc Denies arthralgias, Denies joint swelling, Denies numbness and Denies tingling Neuro Denies Abnormal speech present, Denies behavioral changes, Denies vertigo, Denies dizziness, Denies headache(s), Denies loss of vision, Denies memory loss, Denies numbness and Denies tingling Psych Denies anxiety, Denies behavioral changes, Denies depression, Denies memory loss and Denies panic attacks Aldo/Lymph Denies easy bleeding and Denies easy bruising Aller/Immun Denies wheezing Physical exam (Primary Care) Vital Signs: Last Vital Signs Pulse 99 04/03/24 15:39 BP 90/52 L 04/03/24 15:39 Pulse Ox 97 04/03/24 15:39 Oxygen Delivery Method Room Air 04/03/24 15:39 BMI result Body Mass Index 27.3 Tobacco/Smoking Status: Tobacco use Status Tobacco use date assessed 03/11/24 04/03/24 15:40 Patient Tobacco Use Status Former Tobacco user 04/03/24 15:40 Tobacco use type Cigarette 04/03/24 15:40 e-Cigarette/Vaping Use Never Used 04/03/24 15:40 Thrive Assessment: Date of Thrive Assessment Date Thrive assessed 11/08/23 04/03/24 15:40 Const General: healthy appearing, no acute distress, alert and awake Nutritional Appearance: well nourished Orientation/consciousness: oriented to person, oriented to place and oriented to time HENMT Ears: TM's normal bilaterally General nose exam: Normal nasal mucous membranes and turbinates present Eyes Conjunctivae: conjunctivae normal Sclerae: sclerae normal Pupils: Equal, round and reactive pupils present Neck Neck: Yes no lymphadenopathy and Yes no JVD Thyroid: Thyroid normal Carotids: no bruits Resp Effort & Inspection: normal respiratory effort and not tachypneic Auscultation: no crackles, no rales, no rhonchi and no wheezes Cardio Rate: regular rate Rhythm: regular rhythm Heart sounds: no murmurs and normal S1 and S2 GI Palpation (GI): Soft to palpation, nontender, no hepatomegaly and no splenomegaly Auscultation: normal bowel sounds Skin General skin exam: no rashes or lesions noted and dry skin Neuro General: oriented to person, oriented to place and oriented to time Cranial nerves: Yes Equal, round and reactive pupils present Speech: No Abnormal speech present Gait exam (Neuro): Normal gait present Motor exam (neuro): no tremor noted Extrem Other: AMBULATING WITH A CANE ASSISTANCE Right upper extremity: full ROM Left upper extremity: full ROM Right lower extremity: full ROM; no edema Left lower extremity: full ROM; no edema Psych Mental Status: mental status grossly normal Speech and movement: Normal speech and movement present Affect: normal affect Attitude: cooperative Thought process: Normal thought process present Assessment and Plan Assessment & Plan (1) Bacteremia: Code(s): R78.81 - Bacteremia Plan: As per HPI patient recently admitted to the hospital for acute bacteremia secondary to prosthetic hip replacement infection. Now his PICC line and receiving antibiotics via PICC line. Does have home visiting nurses whom are helping him at home also has physical and occupational therapy. (2) Nonrheumatic aortic (valve) stenosis: Code(s): I35.0 - Nonrheumatic aortic (valve) stenosis Plan: Continues to follow cardiology. He does have a notable murmur on physical exam though apparently not a new finding. He does report having some fatigue and shortness of breath on exertion. (3) Left hip prosthetic joint infection: Code(s): T84.52XA - Infection and inflammatory reaction due to internal left hip prosthesis, initial encounter Qualifiers: Encounter type: sequela Qualified Code(s): T84.52XS - Infection and inflammatory reaction due to internal left hip prosthesis, sequela Plan: As above (4) Colitis: Code(s): K52.9 - Noninfective gastroenteritis and colitis, unspecified Plan: Was found to evidence of colitis on CT abdomen on most recent ER visit at [facility]. C diff testing was negative. (5) Type 2 diabetes mellitus with unspecified complications: Code(s): E11.8 - Type 2 diabetes mellitus with unspecified complications Plan: Freddie reports his diet has not been the same, has lost significant amount of weight likely secondary to his severe illness . He is interested in restarting Ozempic for glycemic control and maintaining his weight loss. Will have patient back in regular follow-ups to continue following fasting blood sugar and A1c. Goal A1c is to remain below 7.0 Orders: Orders Complete Blood Count no Diff 04/04/24 R78.81 - Bacteremia Basic Metabolic Panel 04/04/24 R78.81 - Bacteremia Medications: Refilled semaglutide (Ozempic) 1 mg (0.75 mL) subcut QWEEK 3 mL 3RF 4 weeks E11.8 - Type 2 diabetes mellitus with unspecified complications Patient Instructions: Goal: A1c to be below 7.0 Barriers: Adherence to physical activity and healthy eating habits Coding Level of Care Code Est Pt Level 4 (90754) Diagnoses Bacteremia R78.81 Nonrheumatic aortic (valve) stenosis I35.0 Infection associated with internal left hip prosthesis, sequela T84.52XS Encounter type: sequela Colitis K52.9 Type 2 diabetes mellitus with unspecified complications E11.8
[2024-04-03 15:39] VITALS: BP 90/52; PULSE 99; O2SAT 97; BMI 27.3
== END 2024-04-03 16:22 | disposition home or self-care (01) ==
PROVIDERS: PCP Physician Assistant; Visit Provider Physician Assistant
DX: R78.81 Bacteremia (principal); E11.8 Type 2 diabetes mellitus with unspecified complications; I35.0 Nonrheumatic aortic (valve) stenosis; T84.52XS Infection and inflammatory reaction due to internal left hip prosthesis, sequela; K52.9 Noninfective gastroenteritis and colitis, unspecified
CPT/HCPCS: 99214

== ENCOUNTER 2024-04-04 10:01 | Outpatient (REF) | payer MEDICARE, OTHER, SELFPAY ==
[2024-04-04 13:13] LABS: Hematocrit 33.6 % (42.0-52.0); Hemoglobin 10.7 g/dl (14.0-18.0); Mean Corpuscular HGB Conc 31.8 g/dl (31.0-36.0); Mean Corpuscular Hemoglobin 29.4 pg (27.0-33.0); Mean Corpuscular Volume 92.3 fL (80.0-98.0); Mean Platelet Volume 9.4 fL (9.4-12.4); Platelet Count 449 X10*3/uL (160-400); Red Blood Count 3.64 X10*6/uL (4.60-5.80); Red Cell Distribution Width 14.3 % (11.0-16.0); White Blood Count 10.2 X10*3/uL (4.8-10.8)
[2024-04-04 13:27] LABS: Alanine Aminotransferase 26 U/L (0-40); Albumin Level 3.2 g/dL (3.5-5.0); Alkaline Phosphatase 74 U/L (39-117); Anion Gap 13 (12-20); Aspartate Amino Transferase 37 U/L (5-37); Bilirubin Total 0.3 mg/dL (0.0-1.0); Blood Urea Nitrogen 12 mg/dL (9-16); Calcium 9.2 mg/dL (8.4-10.2); Carbon Dioxide 27 mmol/L (22-29); Chloride 102 mmol/L (96-108); Cholesterol 90 mg/dL (<200); Estimated Glomerular Filt Rate > 60; Glucose Fasting 135 mg/dL (60-99); Glucose Random 134 mg/dL (60-115); HDL Cholesterol 27 mg/dL (>40); LDL Cholesterol Calculated 44 mg/dL (<100); Potassium 3.5 mmol/L (3.3-5.1); Sodium 138 mmol/L (135-145); Total Protein 5.7 g/dL (6.5-8.0); Triglycerides 95 mg/dL (<150)
== END 2024-04-04 10:02 | disposition home or self-care (01) ==
LOC: HO.HMGCLDS 10:01
PROVIDERS: PCP Physician Assistant; Visit Provider Physician Assistant
DX: R78.81 Bacteremia (principal); E11.8 Type 2 diabetes mellitus with unspecified complications; I25.10 Atherosclerotic heart disease of native coronary artery without angina pectoris
CPT/HCPCS: 36415; 80048; 80053; 80061; 85027

== ENCOUNTER 2024-05-20 14:57 | Outpatient (AMB) | payer MEDICARE, OTHER, SELFPAY ==
--- NOTE | 2024-05-20 15:06 | A.OFFPC_ITS ---
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 Accompanied by: Self / Same As Patient Allergies No Known Allergies Allergy (Verified 05/20/24 15:18) Medication List - Last Reconciled 05/20/24 by Arnold Guaman PA-C aspirin 81 mg PO DAILY atorvastatin 80 mg PO DAILY 90 days gabapentin 300 mg PO BID 90 days ibuprofen 800 mg PO Q12H meloxicam 15 mg PO DAILY 90 days metformin 500 mg PO BID 90 days semaglutide (Ozempic) 1 mg (0.75 mL) subcut QWEEK 4 weeks tadalafil 20 mg PO DAILY PRN 7 days tramadol 50 mg PO TID 5 days triamcinolone acetonide 0.5% 1 appl topical DAILY 15 days Tobacco use date assessed: 03/11/24 Dental Screening Dental Screen Date: 02/12/24 [facility] HPI Details Patient is a 79-year-old male here today for follow-up visit. Patient has a past medical history significant for type 2 diabetes, coronary artery disease, hypertension. He underwent left hip replacement in February of 2024 which ultimately led to sepsis due to a septic hip. He underwent emergent surgery with purulent was show and operative cultures grew MRSA and group C Staphylococcus. He was seen by infectious disease and was started on ceftriaxone and metronidazole for 6 weeks. After his 6 week completion of the antibiotics he switch to cephalexin 500 mg q.6 hours for the next few weeks. Otherwise he reports he feels well and has no pain in his left hip in no further chills or delirium. .. Hypertension: Was experiencing low blood pressure during his hospital stays thus has stopped lisinopril, metoprolol and hydrochlorothiazide. Blood pressure has been acceptable today in office. He he will continue to hold these antihypertensives. .. Type 2 diabetes: Patient has restarted Ozempic 1 mg and has lost another 4 lb since last office visit. Today's A1c acceptable at 5.4. Will decrease his metformin to 500 mg daily to reduce any occurrence of hypoglycemia. He will continue on lifestyle and dietary modifications. [facility] Medical History Post-laminectomy syndrome Lumbar spondylosis Atherosclerotic cardiovascular disease Knee osteoarthritis Surgical History History of hip surgery History of total right knee replacement Status post right knee replacement History of lumbar surgery History of adenoidectomy Hx of prior ablation treatment Hx of nasal septoplasty History of appendectomy Family History Father CHF (congestive heart failure) Mother Dementia Breast cancer Social History Housing: House Alcohol intake: current Alcohol intake frequency: a few times a week Alcohol type: hard liquor Patient Tobacco Use Status: Former Tobacco user Tobacco use type: Cigarette e-Cigarette/Vaping Use: Never Used Second Hand Smoke Exposure: No service: Yes Current occupational status: employed and retired Current occupation: [employer] Cognitive needs: No Hearing needs: No Vision needs: Yes Questionnaire Thrive Questionnaire Date Thrive assessed: 11/08/23 Are you currently unemployed and looking for a job?: No MATTHIAS-7 AMB Questionnaire MATTHIAS-7 Date MATTHIAS - 7 assessed: 11/08/23 Source: Developed by Drs. Yarno Gallegos, Pat Hdz, Ernesto Gustafson and colleagues, with an educational meg from [employer]. Review of Systems Const Denies headache(s) Eyes Denies loss of vision ENT Denies vertigo, Denies dizziness, Denies headache(s) and Denies sore throat Card Denies chest pain, Denies leg edema and Denies lightheadedness Resp Denies cough, Denies hemoptysis and Denies wheezing GI Denies abdominal pain, Denies melena, Denies constipation, Denies diarrhea and Denies vomiting Denies dysuria, Denies urinary frequency and Denies urinary urgency Musc Denies arthralgias, Denies joint swelling, Denies numbness and Denies tingling Neuro Denies Abnormal speech present, Denies behavioral changes, Denies vertigo, Denies dizziness, Denies headache(s), Denies loss of vision, Denies memory loss, Denies numbness and Denies tingling Psych Denies anxiety, Denies behavioral changes, Denies depression, Denies memory loss and Denies panic attacks Aldo/Lymph Denies easy bleeding and Denies easy bruising Aller/Immun Denies wheezing Physical exam (Primary Care) Vital Signs: Last Vital Signs Pulse 87 05/20/24 15:15 BP 116/74 05/20/24 15:15 Pulse Ox 97 05/20/24 15:15 Oxygen Delivery Method Room Air 05/20/24 15:15 BMI result Body Mass Index 26.7 Tobacco/Smoking Status: Tobacco use Status Tobacco use date assessed 03/11/24 05/20/24 15:07 Patient Tobacco Use Status Former Tobacco user 05/20/24 15:07 Tobacco use type Cigarette 05/20/24 15:07 e-Cigarette/Vaping Use Never Used 05/20/24 15:07 Thrive Assessment: Date of Thrive Assessment Date Thrive assessed 11/08/23 05/20/24 15:07 Const General: healthy appearing, no acute distress, alert and awake Nutritional Appearance: well nourished Orientation/consciousness: oriented to person, oriented to place and oriented to time HENMT Ears: TM's normal bilaterally General nose exam: Normal nasal mucous membranes and turbinates present Eyes Conjunctivae: conjunctivae normal Sclerae: sclerae normal Pupils: Equal, round and reactive pupils present Neck Neck: Yes no lymphadenopathy and Yes no JVD Thyroid: Thyroid normal Carotids: no bruits Resp Effort & Inspection: normal respiratory effort and not tachypneic Auscultation: no crackles, no rales, no rhonchi and no wheezes Cardio Rate: regular rate Rhythm: regular rhythm Heart sounds: no murmurs and normal S1 and S2 GI Palpation (GI): Soft to palpation, nontender, no hepatomegaly and no splenomegaly Auscultation: normal bowel sounds Skin General skin exam: no rashes or lesions noted and dry skin Neuro General: oriented to person, oriented to place and oriented to time Cranial nerves: Yes Equal, round and reactive pupils present Speech: No Abnormal speech present Gait exam (Neuro): Normal gait present Motor exam (neuro): no tremor noted Extrem Right upper extremity: full ROM Left upper extremity: full ROM Right lower extremity: full ROM; no edema Left lower extremity: full ROM; no edema Psych Mental Status: mental status grossly normal Speech and movement: Normal speech and movement present Affect: normal affect Attitude: cooperative Thought process: Normal thought process present Assessment and Plan Assessment & Plan (1) Left hip prosthetic joint infection: Code(s): T84.52XA - Infection and inflammatory reaction due to internal left hip prosthesis, initial encounter Qualifiers: Encounter type: sequela Qualified Code(s): T84.52XS - Infection and inflammatory reaction due to internal left hip prosthesis, sequela Plan: Has made a full recovery from prosthetic joint infection. Has followed up with Infectious Disease and continues on oral cephalexin for the next few weeks. Continues to have follow-up with orthopedic surgeon at [facility] (2) Nonrheumatic aortic (valve) stenosis: Code(s): I35.0 - Nonrheumatic aortic (valve) stenosis Plan: Continues to follow cardiology. He does have a notable murmur on physical exam though apparently not a new finding. He does report having some fatigue and shortness of breath on exertion. (3) Type 2 diabetes mellitus with unspecified complications: Code(s): E11.8 - Type 2 diabetes mellitus with unspecified complications Plan: Freddie reports his diet has not been the same, has lost significant amount of weight likely secondary to his severe illness . He continues on Ozempic 1 mg with good glycemic control in some minor weight loss. Today's A1c of 5.4. Will reduce his metformin to 500 daily to reduce any occurrences of hypoglycemia. Goal A1c is to remain below 7.0 (4) Essential hypertension: Code(s): I10 - Essential (primary) hypertension Plan: Patient's blood pressure acceptable today in office. Has been off of all his blood pressure medication at this time due to hypotension. Currently his hypertension his diet and lifestyle controlled. Goal blood pressure to be below 140/90 Orders: Orders Comprehensive [place]. Panel Fast Today E11.8 - Type 2 diabetes mellitus with unspecified complications AMB Hemoglobin A1c Today E11.8 - Type 2 diabetes mellitus with unspecified complications Lipid Panel Today I25.10 - Atherosclerotic heart disease of [place] coronary artery without angina pectoris Complete Blood Count no Diff Today I25.10 - Atherosclerotic heart disease of [place] coronary artery without angina pectoris Prostate Specific Antigen Scr Today N52.9 - Male erectile dysfunction, unspecified, Z12.5 - Encounter for screening for malignant neoplasm of prostate Medications: Changed From metformin 500 mg PO BID 90 days 180 tabs 3RF R73.09 - Other abnormal glucose To metformin 500 mg PO DAILY 90 days 90 tabs 3RF R73.09 - Other abnormal glucose Patient Instructions: Goal: A1c to remain below 6.5, blood pressure to remain below 140/90 and above 100/60. Barriers: Adherence to physical activity and healthy eating habits Coding Level of Care Code Est Pt Level 4 (07079) Diagnoses Infection associated with internal left hip prosthesis, sequela T84.52XS Encounter type: sequela Nonrheumatic aortic (valve) stenosis I35.0 Type 2 diabetes mellitus with unspecified complications E11.8 Essential hypertension I10
[2024-05-20 15:15] VITALS: BP 116/74; PULSE 87; O2SAT 97; BMI 26.7
== END 2024-05-20 15:39 | disposition home or self-care (01) ==
PROVIDERS: PCP Physician Assistant; Visit Provider Physician Assistant
DX: E11.8 Type 2 diabetes mellitus with unspecified complications (principal); T84.52XS Infection and inflammatory reaction due to internal left hip prosthesis, sequela; I35.0 Nonrheumatic aortic (valve) stenosis; I10 Essential (primary) hypertension

== ENCOUNTER → 2024-05-20 14:57 | Outpatient (BNVA) | payer MEDICARE, OTHER, SELFPAY | PROVIDERS: PCP Physician Assistant; Visit Provider Physician Assistant | DX: T84.52XS Infection and inflammatory reaction due to internal left hip prosthesis, sequela (principal); I35.0 Nonrheumatic aortic (valve) stenosis; I10 Essential (primary) hypertension; E11.8 Type 2 diabetes mellitus with unspecified complications | CPT/HCPCS: 83036; 99212 ==

== ENCOUNTER 2024-06-18 09:11 | Emergency (ER) | payer MEDICARE, OTHER, SELFPAY ==
--- NOTE | ~2024-06-18 | XR_ITS ---
EXAMINATION: XR THORACIC SPINE XR RIGHT SHOULDER CLINICAL INFORMATION: Right shoulder pain. Back pain. COMPARISON: None available. TECHNIQUE: 5 views of the right shoulder were obtained. 3 views of the thoracic spine were obtained. FINDINGS: Right shoulder: There is 8 mm widening of the acromioclavicular joint. There is 7 mm coracoclavicular distance. Hypertrophic changes of the acromioclavicular joint. Glenohumeral articulation is maintained with mild glenohumeral joint space narrowing and marginal osteophytes. No displaced fracture or dislocation. Thoracic spine: There are 12 rib-bearing thoracic vertebral bodies. Vertebral body heights and intervertebral disc spaces are preserved. Pedicles are intact. XR/XR thoracic spine 3V IMPRESSION: As above. Electronically signed by: Maximus Gordon MD 06/18/2024 03:07 PM EDT
--- NOTE | ~2024-06-18 | MR_ITS ---
EXAMINATION: MR THORACIC SPINE WITHOUT AND WITH CONTRAST CLINICAL INFORMATION: Back pain with elevated CRP. Epidural abscess? COMPARISON: None available. TECHNIQUE: MRI of the thoracic spine was obtained using routine sequences with and without contrast. Intravenous contrast: Gadavist 8 mL. FINDINGS: Slight straightening of the normal thoracic kyphosis. Grade 1 anterolisthesis at C6-7 and C7-T1. Minimal edema and enhancement involving the opposing T1-2 endplate, likely reactive. The vertebral body heights are preserved. Severe disc height loss at T1-2. The visualized spinal cord is normal in caliber. No abnormal cord signal or enhancement. No suspicious intracanalicular fluid collection. At T1-2, there is central disc protrusion and ligamentum flavum hypertrophy. There is partial effacement of the ventral thecal sac with minimal spinal canal stenosis. Moderate left and mild right neural foraminal narrowing. No other sites of significant disc herniation, spinal canal stenosis, or neural foraminal narrowing in the thoracic spine. The imaged intrathoracic and intra-abdominal structures are grossly within normal limits. MR/MR thoracic spine wo/w con IMPRESSION: -No evidence of epidural abscess as clinically questioned. -Central disc protrusion at T1-2 causing minimal spinal canal stenosis as well as moderate left and mild right neural foraminal narrowing. Electronically signed by: Cedric Newby MD 06/18/2024 03:40 PM EDT
--- NOTE | ~2024-06-18 | XR_ITS ---
EXAMINATION: XR THORACIC SPINE XR RIGHT SHOULDER CLINICAL INFORMATION: Right shoulder pain. Back pain. COMPARISON: None available. TECHNIQUE: 5 views of the right shoulder were obtained. 3 views of the thoracic spine were obtained. FINDINGS: Right shoulder: There is 8 mm widening of the acromioclavicular joint. There is 7 mm coracoclavicular distance. Hypertrophic changes of the acromioclavicular joint. Glenohumeral articulation is maintained with mild glenohumeral joint space narrowing and marginal osteophytes. No displaced fracture or dislocation. Thoracic spine: There are 12 rib-bearing thoracic vertebral bodies. Vertebral body heights and intervertebral disc spaces are preserved. Pedicles are intact. XR/XR shoulder RT min 2V IMPRESSION: As above. Electronically signed by: Maximus Gordon MD 06/18/2024 03:07 PM EDT
[2024-06-18 09:17] VITALS: BP 148/85; PULSE 113; RESP 18; TEMP 36.9; O2SAT 96; BMI 26.9
[2024-06-18 11:16] VITALS: BP 124/78; PULSE 99; RESP 12; O2SAT 96
--- NOTE | 2024-06-18 11:16 | ED.GENADULT ---
HPI - General Adult General Chief complaint: Back Pain/Injury Stated complaint: Neck/back pain, R arm numbness Time Seen by Provider: 06/18/24 10:35 Source: patient Mode of arrival: ambulatory Limitations: no limitations History of Present Illness ED Provider: Hi Woods PA-C HPI narrative: 79-year-old male history of left hip prosthetic joint infection, bacteremia, colitis, cardiovascular disease, lumbar radiculitis, sleep apnea, diabetes, and hypertension presents to ED for upper back pain and also right arm pain with right arm tingling. Patient denies any chest pain radiating to the back, pleurisy, calf pain, leg swelling, coughing up blood, fever, or chills. Patient states back pain worse on movement. Related Data Home Medications ?Medication ?Instructions ?Recorded ?Confirmed aspirin 81 mg tablet 81 mg PO DAILY 06/29/20 05/20/24 Previous Rx's ?Medication ?Instructions ?Recorded tadalafil 20 mg tablet 20 mg PO DAILY PRN sexual activity 11/10/20 7 days #7 tabs ibuprofen 800 mg tablet 800 mg PO Q12H #180 tabs 12/26/20 triamcinolone acetonide 0.5 % 1 appl topical DAILY 15 days #15 05/09/21 topical cream grams meloxicam 15 mg tablet 15 mg PO DAILY 90 days #90 tabs 01/03/24 atorvastatin 80 mg tablet 80 mg PO DAILY 90 days #90 tabs 02/12/24 tramadol 50 mg tablet 50 mg PO TID pain 5 days #15 tabs 03/11/24 gabapentin 300 mg capsule 300 mg PO BID 90 days #180 caps 03/12/24 semaglutide 1 mg/dose (4 mg/3 mL) 1 mg (0.75 mL) subcut QWEEK 4 04/03/24 subcutaneous pen injector (Ozempic) weeks #3 mL metformin 500 mg tablet 500 mg PO DAILY 90 days #90 tabs 05/20/24 tramadol 50 mg tablet 50 mg PO TID PRN pain 3 days #9 06/18/24 tabs Allergies Allergy/AdvReac Type Severity Reaction Status Date / Time No Known Allergies Allergy Verified 06/18/24 09:18 Review of Systems Review of Systems: Yes all other systems are reviewed and are negative PMFSH Past Medical History Medical History Post-laminectomy syndrome Lumbar spondylosis Atherosclerotic cardiovascular disease Knee osteoarthritis Surgical History History of hip surgery History of total right knee replacement Status post right knee replacement History of lumbar surgery History of adenoidectomy Hx of prior ablation treatment Hx of nasal septoplasty History of appendectomy Family History Family History Father CHF (congestive heart failure) Mother Dementia Breast cancer Social History Social History Housing: House Alcohol intake: current Alcohol intake frequency: a few times a week Alcohol type: hard liquor Patient Tobacco Use Status: Former Tobacco user Tobacco use type: Cigarette e-Cigarette/Vaping Use: Never Used Second Hand Smoke Exposure: No Advance Directives: No Advance Directives Information Provided: Yes service: Yes Current occupational status: employed and retired Current occupation: [employer] Cognitive needs: No Hearing needs: No Vision needs: Yes Physical Exam ED Vital Signs: Vital Signs - 24 hr 06/18/24 09:17 06/18/24 11:16 06/18/24 15:43 Temperature 98.5 F 97.3 F Pulse Rate 113 H 99 99 Respiratory Rate 18 12 16 Blood Pressure 148/85 H 124/78 123/74 Pulse Oximetry 96 96 97 Oxygen Delivery Method Room Air Room Air Room Air 06/18/24 16:31 Temperature 97.3 F Pulse Rate 99 Respiratory Rate 16 Blood Pressure 123/74 Pulse Oximetry 97 Oxygen Delivery Method Room Air BMI result Body Mass Index 26.9 Const General: cooperative, healthy appearing, comfortable, no acute distress, well developed, alert, awake and Physically active Orientation/consciousness: patient oriented x3 HENMT Head: Yes normal to inspection, Yes No palpable skull fracture present, Yes normocephalic, Yes atraumatic and No abrasion Eyes General: appearance normal, both eyes and all related structures Neck Neck: Yes normal visual inspection, Yes full ROM, Yes no lymphadenopathy, Yes no meningeal signs, Yes trachea midline, Yes supple, No anterior neck swelling and No tender Chest Chest palpation & inspection: normal inspection of the chest and normal palpation of entire chest wall Resp Effort & Inspection: normal respiratory effort and able to speak in complete sentences Auscultation: clear to auscultation bilaterally Cardio Jugular venous distension: no JVD Heart sounds: S1 normal heart sound present and S2 normal heart sound present GI Inspection: Yes normal to inspection Palpation (GI): Soft to palpation, not firm, nontender, no guarding and not rigid General: No CVA tenderness and Yes no CVA tenderness Back/Spine/Pelvis Back: no CVA tenderness, No CVA tenderness and back tenderness (thoracic spine) Back/spine/pelvis image: 1. positive for tenderness on palpation. negative for ecchymosis, erythema, deformity, or redness. Skin General skin exam: no rashes or lesions noted, elasticity normal and turgor normal Neuro General: patient oriented x3, gait normal, tone normal, moves all extremities, Normal light touch and pain sensation, no meningeal signs, no focal motor deficits, CN's II-XI intact bilaterally and normal sensation to monofilament Extrem General: Yes normal to inspection, Yes full ROM and Yes capillary refill normal Shoulder/upper arm images: 1. Positive for tenderness on palpation and range of motion. Negative for erythema, swelling, bluish black discoloration, ecchymosis, crepitus, or obvious deformity. Motor/neuro/vascular exam intact. Psych Appearance: grossly normal, well kempt and not disheveled Medications Administered Discontinued Medications Generic Name Dose Route Start Last Admin Trade Name Freq PRN Reason Stop Dose Admin Gadobutrol 10 ml 06/18/24 15:14 06/18/24 15:15 Gadobutrol 10 Ml Vial IVPUSH 06/18/24 15:15 8 ml ONCE ONE Administration Ketorolac Tromethamine 30 mg 06/18/24 16:20 06/18/24 16:26 Ketorolac Tromethamine 30 Mg/Ml Vial IVPUSH 06/18/24 16:21 30 mg ONCE ONE Administration Medical Decision Making Medical Decision Making MDM Narrative: 79 yold male presents to the ED for upper back pain and right shoulder right arm discomfort with slight tingling. Patient denies any neck pain, headache, facial droop, slurred speech, chest pain, shortness of breath, or pleurisy. Patient states he finishes antibiotics for bacteremia 5 weeks ago. Patient denies anyhistory of IV drug use or any urinary/bowel incontinence. Will send patient for x-ray of back and shoulder. Due to patient recently being treated for bacteremia will do ESR CRP to make sure there is no infection going to the spine. 4:06pm: Patient was sent for MRI due to elevated CRP and elevated white blood cell count. MRI came back negative for cauda equinus syndrome or epidural abscess. MRI positive for thoracic central disc protrusion with stenosis. Shoulder x-ray positive for acromial clavicular widening. Patient informed to follow up with primary care provider. Patient denies any recent trauma Differential Diagnosis Differential Diagnoses: The differential diagnosis associated with the presentation includes (Epidural abscess, cauda equinus abscess, fracture, dislocation, osteomyelitis) Admission/Observation Consideration of admission/observation: Escalation of care including admission/observation considered Lab Data MDM Lab Attestation statement: I reviewed the patient's lab results. 06/18/24 11:22 06/18/24 11:22 Labs: Lab Results 06/18/24 06/18/24 Range/Units 11:22 11:50 WBC 14.2 H (4.8-10.8) X10*3/uL RBC 4.30 L (4.60-5.80) X10*6/uL Hgb 12.1 L (14.0-18.0) g/dl Hct 36.9 L (42.0-52.0) % MCV 85.8 (80.0-98.0) fL MCH 28.1 (27.0-33.0) pg MCHC 32.8 (31.0-36.0) g/dl RDW 14.9 (11.0-16.0) % Plt Count 345 (160-400) X10*3/uL MPV 8.5 L (9.4-12.4) fL Immature Gran % (Auto) 0.4 (0.0-0.4) % Neut % (Auto) 80.7 H (45-73) % Lymph % (Auto) 10.0 L (20-40) % [place] % (Auto) 7.2 (2-11) % Eos % (Auto) 1.2 (0-4) % Baso % (Auto) 0.5 (0-2) % Lymph # (Auto) 1.4 (1.2-4.9) X10*3/uL [place] # (Auto) 1.0 (0.1-1.2) X10*3/uL Eos # (Auto) 0.2 (0.0-0.4) X10*3/uL Baso # (Auto) 0.1 (0.0-0.2) X10*3/uL Abs Immat Gran (auto) 0.06 H (0.00-0.03) X10*3/uL Absolute Neuts (auto) 11.5 H (2.0-8.3) x10*3/uL Absolute Nucleated RBC 0.000 (0.0-0.012) X10*3/uL Nucleated RBC % (auto) 0.0 (0.0-0.2) /100WBC ESR 14 (0-15) MM/HR PT 12.1 (10.9-12.4) SEC INR 1.0 (0.9-1.1) APTT 29.9 (26.0-36.8) SEC Sodium 140 (135-145) mmol/L Potassium 4.4 D (3.3-5.1) mmol/L Chloride 106 (96-108) mmol/L Carbon Dioxide 28 (22-29) mmol/L Anion Gap 10 L (12-20) BUN 23 H (9-16) mg/dL Creatinine 0.95 (0.5-1.4) mg/dL Estim Creat Clear Calc 66.1 Estimated GFR > 60 Random Glucose 115 (60-115) mg/dL Calcium 9.5 (8.4-10.2) mg/dL Total Bilirubin 0.4 (0.0-1.0) mg/dL AST 30 (5-37) U/L ALT 18 (0-40) U/L Alkaline Phosphatase 109 (39-117) U/L C-Reactive Protein 4.78 H (< or = 0.50) mg/dL Total Protein 5.9 L (6.5-8.0) g/dL Albumin 3.6 (3.5-5.0) g/dL Independent Interpretation I performed an independent interpretation of an: Plain X-Ray Radiology Impression Discussion of test interpretation with radiology: I have reviewed the radiologist's reading. Independent Historian Clinical information obtained from an independent historian. History obtained from or confirmed by: Other (Patient) External Record Review External record reviewed: Other (prior vistis) Prescription Management I considered prescription management with: Pain Medication Discharge Plan Discharge Clinical Impression: Thoracic disc herniation, Acromioclavicular joint separation, Osteoarthritis Patient Disposition: Home, Self-Care Instructions: Acromioclavicular Separation (ED), Osteoarthritis (ED), Thoracic Disc Herniation (ED) Additional Instructions: Recommend follow-up with your primary care provider and orthopedic surgeon for follow-up. Right shoulder shows widening of your acromioclavicular joint which may indicate acromioclavicular separation. You may need an MRI. Return to the ED for any urinary/bowel incontinence, paralysis weakness tingling upper extremities, neck pain, severe back pain, nausea, vomiting, fever, chills, chest pain, shortness of breath, abdominal pain, or any other concerning symptoms. Continue taking tramadol at home you have for pain. MR/MR thoracic spine wo/w con IMPRESSION: -No evidence of epidural abscess as clinically questioned. -Central disc protrusion at T1-2 causing minimal spinal canal stenosis as well as moderate left and mild right neural foraminal narrowing. Electronically signed by: Cedric Newby MD 06/18/2024 03:40 PM EDT RP FINDINGS: Right shoulder: There is 8 mm widening of the acromioclavicular joint. There is 7 mm coracoclavicular distance. Hypertrophic changes of the acromioclavicular joint. Glenohumeral articulation is maintained with mild glenohumeral joint space narrowing and marginal osteophytes. No displaced fracture or dislocation. Thoracic spine: There are 12 rib-bearing thoracic vertebral bodies. Vertebral body heights and intervertebral disc spaces are preserved. Pedicles are intact. XR/XR shoulder RT min 2V IMPRESSION: As above. Electronically signed by: Maximus Gordon MD 06/18/2024 03:07 PM EDT RP Prescriptions: New tramadol 50 mg tablet 50 mg PO TID PRN (Reason: pain) 3 Days Qty: 9 0RF No Action ibuprofen 800 mg tablet 800 mg PO Q12H Qty: 180 2RF triamcinolone acetonide 0.5 % cream 1 appl topical DAILY 15 Days Qty: 15 1RF meloxicam 15 mg tablet 15 mg PO DAILY 90 Days Qty: 90 1RF gabapentin 300 mg capsule 300 mg PO BID 90 Days Qty: 180 3RF aspirin 81 mg tablet 81 mg PO DAILY tadalafil 20 mg tablet 20 mg PO DAILY PRN (Reason: sexual activity) 7 Days Qty: 7 0RF Rx Instructions: administer approximately 30min before sexual activity; do not use more than 1 dose per 24hrs tramadol 50 mg tablet 50 mg PO TID 5 Days Qty: 15 0RF atorvastatin 80 mg tablet 80 mg PO DAILY 90 Days Qty: 90 1RF Ozempic 1 mg/dose (4 mg/3 mL) pen injector 1 mg subcut QWEEK 28 Days Qty: 3 3RF metformin 500 mg tablet 500 mg PO DAILY 90 Days Qty: 90 3RF Referrals: [facility] Orthopedic Surgeons [Provider Group] (Thoracic disc herniation, possible acromioclavicular separation,) Stand Alone Forms: Work/School Release Interventions: ED Discharge Assessment Last Done: 06/18/24 16:31 Discharge Date/Time: 06/18/24 16:31 Print Language: Macedonian
[2024-06-18 11:26] LABS: MANUAL DIFF FLAG NO
[2024-06-18 11:29] LABS: Basophils Absolute Auto 0.1 X10*3/uL (0.0-0.2); Basophils Percent Auto 0.5 % (0-2); Eosinophils Absolute Auto 0.2 X10*3/uL (0.0-0.4); Eosinophils Percent Auto 1.2 % (0-4); Hematocrit 36.9 % (42.0-52.0); Hemoglobin 12.1 g/dl (14.0-18.0); Imm Gran Abs Auto 0.06 X10*3/uL (0.00-0.03); Imm Gran Pct Auto 0.4 % (0.0-0.4); Lymphocytes Absolute Auto 1.4 X10*3/uL (1.2-4.9); Mean Corpuscular HGB Conc 32.8 g/dl (31.0-36.0); Mean Corpuscular Hemoglobin 28.1 pg (27.0-33.0); Mean Corpuscular Volume 85.8 fL (80.0-98.0); Mean Platelet Volume 8.5 fL (9.4-12.4); Monocytes Percent Auto 7.2 % (2-11); Neutrophils Absolute Auto 11.5 x10*3/uL (2.0-8.3); Neutrophils Percent Auto 80.7 % (45-73); Platelet Count 345 X10*3/uL (160-400); Red Cell Distribution Width 14.9 % (11.0-16.0); White Blood Count 14.2 X10*3/uL (4.8-10.8)
[2024-06-18 11:45] LABS: Alanine Aminotransferase 18 U/L (0-40); Albumin Level 3.6 g/dL (3.5-5.0); Alkaline Phosphatase 109 U/L (39-117); Anion Gap 10 (12-20); Aspartate Amino Transferase 30 U/L (5-37); Bilirubin Total 0.4 mg/dL (0.0-1.0); Blood Urea Nitrogen 23 mg/dL (9-16); C Reactive Protein 4.78 mg/dL (< or = 0.50); Calcium 9.5 mg/dL (8.4-10.2); Carbon Dioxide 28 mmol/L (22-29); Chloride 106 mmol/L (96-108); Creatinine Clr Calc Pharmacy 66.1; Estimated Glomerular Filt Rate > 60; Glucose Random 115 mg/dL (60-115); Potassium 4.4 mmol/L (3.3-5.1); Sodium 140 mmol/L (135-145); Total Protein 5.9 g/dL (6.5-8.0)
[2024-06-18 12:02] LABS: Prothrombin Time 12.1 SEC (10.9-12.4)
[2024-06-18 12:05] LABS: Partial Thromboplastin Time 29.9 SEC (26.0-36.8)
[2024-06-18 12:21] LABS: Erythrocyte Sedimentation Rate 14 MM/HR (0-15)
--- NOTE | 2024-06-18 13:15 | PC.NURSE ---
MRI screening form faxed and confirmation rec [id number]
[2024-06-18] MEDS: gadobutroL 10 ML VIAL IVPUSH (15:15)
[2024-06-18 15:43] VITALS: BP 123/74; PULSE 99; RESP 16; TEMP 36.3; O2SAT 97
[2024-06-18] MEDS: Ketorolac Tromethamine 30 MG/ML VIAL IVPUSH (16:26)
[2024-06-18 16:31] VITALS: BP 123/74; PULSE 99; RESP 16; TEMP 36.3; O2SAT 97
== END 2024-06-18 16:31 | disposition home or self-care (01) ==
PROVIDERS: Physician Assistant; Emergency Provider Emergency Medicine; PCP Physician Assistant
DX: M51.24 Other intervertebral disc displacement, thoracic region (principal); S43.101A Unspecified dislocation of right acromioclavicular joint, initial encounter; X58.XXXA Exposure to other specified factors, initial encounter; M19.011 Primary osteoarthritis, right shoulder; R20.0 Anesthesia of skin; R20.2 Paresthesia of skin; D72.829 Elevated white blood cell count, unspecified; M25.511 Pain in right shoulder; M54.6 Pain in thoracic spine; E11.9 Type 2 diabetes mellitus without complications; I10 Essential (primary) hypertension; E78.5 Hyperlipidemia, unspecified; Z79.82 Long term (current) use of aspirin; Z79.02 Long term (current) use of antithrombotics/antiplatelets; Z79.899 Other long term (current) drug therapy; Z87.891 Personal history of nicotine dependence; Y93.9 Activity, unspecified; Y92.9 Unspecified place or not applicable; Y99.9 Unspecified external cause status
CPT/HCPCS: 36415; 72072; 72157; 73030; 80053; 85025; 85610; 85652; 85730; 86140; 96374; 96375; 99283; 99285; A9585; J1885

== ENCOUNTER 2024-09-22 15:04 | Outpatient (AMB) | payer MEDICARE, OTHER, SELFPAY ==
[2024-09-22 15:10] VITALS: BP 136/76; PULSE 89; TEMP 522.7; TEMP 973; BMI 27.4
--- NOTE | 2024-09-22 15:10 | MHC.PC.OV ---
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 Accompanied by: Self / Same As Patient Allergies No Known Allergies Allergy (Verified 09/22/24 15:15) Medication List - Last Reconciled 09/22/24 by Arnold Guaman PA-C aspirin 81 mg PO DAILY atorvastatin 80 mg PO DAILY 90 days gabapentin 300 mg PO BID 90 days ibuprofen 800 mg PO Q12H meloxicam 15 mg PO DAILY 90 days metformin 500 mg PO DAILY 90 days semaglutide (Ozempic) 1 mg (0.75 mL) subcut QWEEK 4 weeks tadalafil 20 mg PO DAILY PRN 7 days tramadol 50 mg PO TID PRN 3 days triamcinolone acetonide 0.5% 1 appl topical DAILY 15 days Tobacco use date assessed: 09/22/24 Fall risk assessment: No Falls in past year Last assessed Fall Risk: 09/22/24 Dental Screening Dental Screen Date: 09/22/24 Did you have a dental visit in the last 12 months?: Yes Did you have a dental problem in the last 6 months where you did not have access to dental care?: No Was dental information given to patient?: Patient has dentist HPI f/u DMII/ HLD HPI Details Patient is a 79-year-old male here today for follow-up visit. Patient has a past medical history significant for type 2 diabetes, coronary artery disease, hypertension. .. Hypertension: Patient's blood pressure acceptable today in office. Unclear if he is taking blood pressure medication at this time. He reports he is back on his old medication which was hydrochlorothiazide lisinopril. Though was taken off of this in the past due to hypotension. PLAN: Will continue his lisinopril 10 mg for renal protection. .. Type 2 diabetes: He continues on Ozempic 1 mg weekly and continues to have good glycemic control. He reports his hunger has come back and is interested in increasing his Ozempic dose to highest 2 mg weekly. Today's A1c acceptable at 5.4. He will continue on lifestyle and dietary modifications. Obstructive sleep apnea: Followed by sleep specialist at [facility]. Uses CPAP on a nightly basis with good effect. .. Aortic Valve calcification/ CAD:? Is followed by Cardiology on a six-month basis.? Most recent lipid panel showing excellent control of his total cholesterol and LDL. Continues on high dose statin therapy. ? He denies any shortness of breath, chest discomfort, headaches or dizziness [facility] Medical History (Updated 09/24/24 @ 07:36 by Arnold Guaman PA-C) Left hip prosthetic joint infection Post-laminectomy syndrome Lumbar spondylosis Atherosclerotic cardiovascular disease Knee osteoarthritis Surgical History History of hip surgery History of total right knee replacement Status post right knee replacement History of lumbar surgery History of adenoidectomy Hx of prior ablation treatment Hx of nasal septoplasty History of appendectomy Family History Father CHF (congestive heart failure) Mother Dementia Breast cancer Social History Housing: House Alcohol intake: current Alcohol intake frequency: a few times a week Alcohol type: hard liquor Patient Tobacco Use Status: Former Tobacco user Tobacco use type: Cigarette e-Cigarette/Vaping Use: Never Used Second Hand Smoke Exposure: No service: Yes Current occupational status: employed and retired Current occupation: [employer] Cognitive needs: No Hearing needs: No Vision needs: Yes Questionnaire PHQ-9 Over the last 2 weeks, how often have you been bothered by any of the following problems? 1. Little interest or pleasure in doing things: not at all 2. Feeling down, depressed, or hopeless: not at all 3. Trouble falling or staying asleep, or sleeping too much: not at all 4. Feeling tired or having little energy: not at all 5. Poor appetite or overeating: not at all 6. Feeling bad about yourself - or that you are a failure or have let yourself or your family down: not at all 7. Trouble concentrating on things, such as reading the newspaper or watching television: not at all 8. Moving or speaking so slowly that other people could have noticed. Or the opposite - being so fidgety or restless that you have been moving around a lot more than usual: not at all 9. Thoughts that you would be better off or of hurting yourself in some way: not at all Total score: 0 Depression Screening Interpretation: Negative Depression Screening Done: Yes 06540 - PHQ-9 Billing: Yes Source: Developed by Drs. Yaron Gallegos, Pat Hdz, Ernesto Gustafson and colleagues, with an educational meg from [employer]. Thrive Questionnaire Date Thrive assessed: 09/22/24 I am a: Patient What is your living situation today?: I have a steady place to live Within the past 12 months, did the food you bought not last and you didn't have the money to get more?: Never true Within the past 12 months, did you worry whether your food would run out before you got money to buy more?: Never true Do you have trouble paying for medicines?: No Do you have trouble getting transportation to medical appointments?: No Do you have trouble paying your heating and electricity bill?: No Do you have trouble taking care of your child, family member or friend?: No Do you have trouble with day-to-day activities such as bathing, preparing meals, shopping, managing finances, etc.?: No Are you currently unemployed and looking for a job?: No Are you interested in more education?: No Please select the resources that you would like help with: None Currently or been in a relationship where the following occur: No concerns reported THRIVE Score: 0 AUDIT C Alcohol Use Questionnaire (AUDIT-C) 1. How often do you have a drink containing alcohol?: Monthly or less 2. How many drinks containing alcohol do you have on a typical day when you are drinking?: 1 or 2 3. How often do you have six or more drinks on one occasion?: Never Total Score: 1 MATTHIAS-7 AMB Questionnaire MATTHIAS-7 Date MATTHIAS - 7 assessed: 09/22/24 Feeling nervous, anxious, or on edge: 0 = Not at all Not being able to stop or control worryin = Not at all Worrying too much about different things: 0 = Not at all Trouble relaxin = Not at all Being so restless that it is hard to sit still: 0 = Not at all Becoming easily annoyed or irritable: 0 = Not at all Feeling afraid as if something awful might happen: 0 = Not at all Total MATTHIAS-7 score (0-4 normal; 5-9 mild; 10-14 moderate; 15-21 severe): 0 Source: Developed by Drs. Yaron Gallegos, Pat Hdz, Ernesto Gustafson and colleagues, with an educational meg from [employer]. MATTHIAS-7 Assessment Billing MATTHIAS-7 Assessment Tool: MATTHIAS-7 Assessment 13705 Review of Systems Const Denies headache(s) Eyes Denies loss of vision ENT Denies vertigo, Denies dizziness, Denies headache(s) and Denies sore throat Card Denies chest pain, Denies leg edema and Denies lightheadedness Resp Denies cough, Denies hemoptysis and Denies wheezing GI Denies abdominal pain, Denies melena, Denies constipation, Denies diarrhea and Denies vomiting Denies dysuria, Denies urinary frequency and Denies urinary urgency Musc Denies arthralgias, Denies joint swelling, Denies numbness and Denies tingling Neuro Denies Abnormal speech present, Denies behavioral changes, Denies vertigo, Denies dizziness, Denies headache(s), Denies loss of vision, Denies memory loss, Denies numbness and Denies tingling Psych Denies anxiety, Denies behavioral changes, Denies depression, Denies memory loss and Denies panic attacks Aldo/Lymph Denies easy bleeding and Denies easy bruising Aller/Immun Denies wheezing Physical exam (Primary Care) Vital Signs: Last Vital Signs Temp 973 F H 09/22/24 15:10 Pulse 89 09/22/24 15:10 BP 136/76 09/22/24 15:10 Oxygen Delivery Method Room Air 09/22/24 15:10 BMI result Body Mass Index 27.4 Tobacco/Smoking Status: Tobacco use Status Tobacco use date assessed 09/22/24 09/22/24 15:14 Patient Tobacco Use Status Former Tobacco user 09/22/24 15:14 Tobacco use type Cigarette 09/22/24 15:14 e-Cigarette/Vaping Use Never Used 09/22/24 15:14 PHQ-9: PHQ-9 Score PHQ-9: Total score 0 09/22/24 15:19 Depression Screening Interpretation: Negative Thrive Assessment: Date of Thrive Assessment Date Thrive assessed 09/22/24 09/22/24 15:14 Currently or been in a relationship where the following occur: No concerns reported Const General: healthy appearing, no acute distress, alert and awake Nutritional Appearance: well nourished Orientation/consciousness: oriented to person, oriented to place and oriented to time HENMT Ears: TM's normal bilaterally General nose exam: Normal nasal mucous membranes and turbinates present Eyes Conjunctivae: conjunctivae normal Sclerae: sclerae normal Pupils: Equal, round and reactive pupils present Neck Neck: Yes no lymphadenopathy and Yes no JVD Thyroid: Thyroid normal Carotids: no bruits Resp Effort & Inspection: normal respiratory effort and not tachypneic Auscultation: no crackles, no rales, no rhonchi and no wheezes Cardio Rate: regular rate Rhythm: regular rhythm Heart sounds: no murmurs and normal S1 and S2 GI Palpation (GI): Soft to palpation, nontender, no hepatomegaly and no splenomegaly Auscultation: normal bowel sounds Skin General skin exam: no rashes or lesions noted and dry skin Neuro General: oriented to person, oriented to place and oriented to time Cranial nerves: Yes Equal, round and reactive pupils present Speech: No Abnormal speech present Gait exam (Neuro): Normal gait present Motor exam (neuro): no tremor noted Extrem Right upper extremity: full ROM Left upper extremity: full ROM Right lower extremity: full ROM and edema Left lower extremity: full ROM and edema Psych Mental Status: mental status grossly normal Speech and movement: Normal speech and movement present Affect: normal affect Attitude: cooperative Thought process: Normal thought process present Coding Level of Care Code Est Pt Level 4 (83617) Diagnoses Type 2 diabetes mellitus with unspecified complications E11.8 Coronary artery disease involving [place] coronary artery of [place] heart without angina pectoris I25.10 Associated angina: without angina Coronary Disease-Associated Artery/Lesion type: [place] artery [place] vs. transplanted heart: [place] heart Essential hypertension I10 Hypertension type: essential hypertension ISMA (obstructive sleep apnea) G47.33 Additional Codes MATTHIAS-7 Assessment Billing - MATTHIAS-7 Assessment Tool: MATTHIAS-7 Assessment 60455 ([id number]) PHQ-9 - 85420 - PHQ-9 Billing: Yes ([id number]) Assessment & Plan Assessment & Plan (1) Type 2 diabetes mellitus with unspecified complications: Code(s): E11.8 - Type 2 diabetes mellitus with unspecified complications Category: Medical Plan: As per HPI patient's type 2 diabetes well controlled with current antihyperglycemic med regime. He would like to go upon maximal dose of Ozempic to help him with further weight loss and appetite suppression. (2) CAD (coronary artery disease): Code(s): I25.10 - Atherosclerotic heart disease of [place] coronary artery without angina pectoris Category: Medical Qualifiers: Associated angina: without angina Coronary Disease-Associated Artery/Lesion type: [place] artery [place] vs. transplanted heart: [place] heart Qualified Code(s): I25.10 - Atherosclerotic heart disease of [place] coronary artery without angina pectoris Plan: Patient continues to follow cardiology. Has not had any chest pain no shortness a breath recently. Most recent lipid panel showing excellent control of his total cholesterol and LDL. Goal LDL is to remain optimally below 70. (3) HTN (hypertension): Code(s): I10 - Essential (primary) hypertension Category: Medical Qualifiers: Hypertension type: essential hypertension Qualified Code(s): I10 - Essential (primary) hypertension Plan: Patient's blood pressure acceptable today in office. Will restart lisinopril 10 mg for renal protection and better blood pressure control. Was off of blood pressure medication previously after his hospitalizations due to hypotension. Goal blood pressures to remain below 140/90 and above 100/60 (4) ISMA (obstructive sleep apnea): Code(s): G47.33 - Obstructive sleep apnea (adult) (pediatric) Category: Medical Plan: Patient compliant with use of CPAP machine on a nightly basis. He is followed by sleep specialist at [facility] is undergoing further testing. Orders: Orders Complete Blood Count no Diff 09/22/24 E11.8 - Type 2 diabetes mellitus with unspecified complications Prostate Specific Antigen Scr 09/22/24 E11.8 - Type 2 diabetes mellitus with unspecified complications, Z12.5 - Encounter for screening for malignant neoplasm of prostate Comprehensive [place]. Panel Fast 09/22/24 E11.8 - Type 2 diabetes mellitus with unspecified complications Microalbumin, Random (w Creat) 09/22/24 I10 - Essential (primary) hypertension Lipid Panel 09/22/24 I25.10 - Atherosclerotic heart disease of [place] coronary artery without angina pectoris Medications: New lisinopril 10 mg PO DAILY 90 tabs 1RF 90 days E11.8 - Type 2 diabetes mellitus with unspecified complications, I25.10 - Atherosclerotic heart disease of [place] coronary artery without angina pectoris semaglutide (Ozempic) 2 mg (0.75 mL) subcut QWEEK 3 mL 3RF 4 weeks E11.8 - Type 2 diabetes mellitus with unspecified complications Discontinued semaglutide (Ozempic) Discontinued Reason: Doctor's Order 1 mg (0.75 mL) subcut QWEEK 4 weeks 3 mL 3RF E11.8 - Type 2 diabetes mellitus with unspecified complications Patient Instructions: Goal: Blood pressure to remain below 140/90, LDL optimally be below 70, A1c to remain below 7.0 Barriers: Adherence to physical activity and healthy eating habits
== END 2024-09-22 15:33 | disposition home or self-care (01) ==
PROVIDERS: PCP Physician Assistant; Visit Provider Physician Assistant
DX: E11.8 Type 2 diabetes mellitus with unspecified complications (principal); I25.10 Atherosclerotic heart disease of native coronary artery without angina pectoris; I10 Essential (primary) hypertension; G47.33 Obstructive sleep apnea (adult) (pediatric)

== ENCOUNTER → 2024-09-22 15:04 | Outpatient (BNVA) | payer MEDICARE, OTHER, SELFPAY | PROVIDERS: PCP Physician Assistant; Visit Provider Physician Assistant | DX: E11.8 Type 2 diabetes mellitus with unspecified complications (principal); I25.10 Atherosclerotic heart disease of native coronary artery without angina pectoris; I10 Essential (primary) hypertension; G47.33 Obstructive sleep apnea (adult) (pediatric) | CPT/HCPCS: 96127; 99212 ==

== ENCOUNTER 2024-12-22 14:58 | Outpatient (AMB) | payer MEDICARE, OTHER, SELFPAY ==
--- NOTE | 2024-12-22 15:12 | A.OFFPC_ITS ---
Vital Signs 12/22/24 15:20 Height 5 ft 10 in Weight 191 lb BMI 27.4 BP 110/78 Blood Pressure Location Lt brachial Position Sitting Pulse 92 Pulse Source Pulse Oximeter Pulse Oximetry (%) 92 Oxygen Delivery Method Room Air Intake Visit Reasons: f/u DMII Intake Note: Patient is here to follow up on DM. 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 per policy Accompanied by: Self / Same As Patient Allergies No Known Allergies Allergy (Verified 12/22/24 15:33) Medication List - Last Reconciled 12/22/24 by Arnold Guaman PA-C aspirin 81 mg PO DAILY atorvastatin 80 mg PO DAILY 90 days gabapentin 300 mg PO BID 90 days ibuprofen 800 mg PO Q12H lisinopril 10 mg PO DAILY 90 days meloxicam 15 mg PO DAILY 90 days metformin 500 mg PO DAILY 90 days semaglutide (Ozempic) 2 mg (0.75 mL) subcut QWEEK 4 weeks tadalafil 20 mg PO DAILY PRN 7 days tramadol 50 mg PO TID PRN 3 days triamcinolone acetonide 0.5% 1 appl topical DAILY 15 days Tobacco use date assessed: 12/22/24 Fall risk assessment: No Falls in past year Last assessed Fall Risk: 12/22/24 Dental Screening Dental Screen Date: 09/22/24 Did you have a dental visit in the last 12 months?: Yes Did you have a dental problem in the last 6 months where you did not have access to dental care?: No Was dental information given to patient?: Patient has dentist HPI f/u DMII HPI Details Patient is a 79-year-old male here today for follow-up visit. Patient has a past medical history significant for type 2 diabetes, coronary artery disease, hypertension. Concern--> patient reports he has been experiencing forgetfulness as of late and has been noticed by his . .. Hypertension: Patient's blood pressure acceptable today in office. He continues on lisinopril 10 mg. .. Type 2 diabetes: He continues on Ozempic 1 mg weekly and continues to have good glycemic control. Today's A1c acceptable at 5.3. He will continue on lifestyle and dietary modifications. Obstructive sleep apnea: Followed by sleep specialist at [facility]. Uses CPAP on a nightly basis with good effect. .. Aortic Valve calcification/ CAD:? Is followed by Cardiology on a six-month basis.? Most recent lipid panel showing excellent control of his total cho lesterol and LDL. Continues on high dose statin therapy. ? He denies any shortness of breath, chest discomfort, headaches or dizziness [facility] Medical History (Updated 12/22/24 @ 15:43 by Arnold Guaman PA-C) Left hip prosthetic joint infection Post-laminectomy syndrome Lumbar spondylosis Atherosclerotic cardiovascular disease Knee osteoarthritis Surgical History History of hip surgery History of total right knee replacement Status post right knee replacement History of lumbar surgery History of adenoidectomy Hx of prior ablation treatment Hx of nasal septoplasty History of appendectomy Family History Father CHF (congestive heart failure) Mother Dementia Breast cancer Social History Housing: House Alcohol intake: current Alcohol intake frequency: a few times a week Alcohol type: hard liquor Patient Tobacco Use Status: Former Tobacco user Tobacco use type: Cigarette e-Cigarette/Vaping Use: Never Used Second Hand Smoke Exposure: Yes service: Yes Current occupational status: employed and retired Current occupation: [employer] Cognitive needs: No Hearing needs: No Vision needs: Yes Questionnaire PHQ-9 Over the last 2 weeks, how often have you been bothered by any of the following problems? 1. Little interest or pleasure in doing things: not at all 2. Feeling down, depressed, or hopeless: not at all 3. Trouble falling or staying asleep, or sleeping too much: not at all 4. Feeling tired or having little energy: not at all 5. Poor appetite or overeating: not at all 6. Feeling bad about yourself - or that you are a failure or have let yourself or your family down: not at all 7. Trouble concentrating on things, such as reading the newspaper or watching television: not at all 8. Moving or speaking so slowly that other people could have noticed. Or the opposite - being so fidgety or restless that you have been moving around a lot more than usual: not at all 9. Thoughts that you would be better off or of hurting yourself in some way: not at all Total score: 0 Depression Screening Interpretation: Negative Depression Screening Done: Yes 04245 - PHQ-9 Billing: Yes Source: Developed by Drs. Yaron Gallegos, Pat Hdz, Ernesto Gustafson and colleagues, with an educational meg from [employer]. Thrive Questionnaire Date Thrive assessed: 12/22/24 I am a: Patient What is your living situation today?: I have a steady place to live Within the past 12 months, did the food you bought not last and you didn't have the money to get more?: Never true Within the past 12 months, did you worry whether your food would run out before you got money to buy more?: Never true Do you have trouble paying for medicines?: No Do you have trouble getting transportation to medical appointments?: No Do you have trouble paying your heating and electricity bill?: No Do you have trouble taking care of your child, family member or friend?: No Do you have trouble with day-to-day activities such as bathing, preparing meals, shopping, managing finances, etc.?: No Are you currently unemployed and looking for a job?: No Are you interested in more education?: No Please select the resources that you would like help with: None Currently or been in a relationship where the following occur: No concerns reported THRIVE Score: 0 AUDIT C Alcohol Use Questionnaire (AUDIT-C) 1. How often do you have a drink containing alcohol?: Monthly or less 2. How many drinks containing alcohol do you have on a typical day when you are drinking?: 1 or 2 3. How often do you have six or more drinks on one occasion?: Never Total Score: 1 MATTHIAS-7 AMB Questionnaire MATTHIAS-7 Date MATTHIAS - 7 assessed: 12/22/24 Feeling nervous, anxious, or on edge: 0 = Not at all Not being able to stop or control worryin = Not at all Worrying too much about different things: 0 = Not at all Trouble relaxin = Not at all Being so restless that it is hard to sit still: 0 = Not at all Becoming easily annoyed or irritable: 0 = Not at all Feeling afraid as if something awful might happen: 0 = Not at all Total MATTHIAS-7 score (0-4 normal; 5-9 mild; 10-14 moderate; 15-21 severe): 0 Source: Developed by Drs. Yaron Gallegos, Pat Hdz, Ernesto Gustafson and colleagues, with an educational meg from [employer]. MATTHIAS-7 Assessment Billing MATTHIAS-7 Assessment Tool: MATTHIAS-7 Assessment 63928 Review of Systems Const Denies headache(s) Eyes Denies loss of vision ENT Denies vertigo, Denies dizziness, Denies headache(s) and Denies sore throat Card Denies chest pain, Denies leg edema and Denies lightheadedness Resp Denies cough, Denies hemoptysis and Denies wheezing GI Denies abdominal pain, Denies melena, Denies constipation, Denies diarrhea and Denies vomiting Denies dysuria, Denies urinary frequency and Denies urinary urgency Musc Denies arthralgias, Denies joint swelling, Denies numbness and Denies tingling Neuro Denies Abnormal speech present, Denies behavioral changes, Denies vertigo, Denies dizziness, Denies headache(s), Denies loss of vision, Denies memory loss, Denies numbness and Denies tingling Psych Denies anxiety, Denies behavioral changes, Denies depression, Denies memory loss and Denies panic attacks Aldo/Lymph Denies easy bleeding and Denies easy bruising Aller/Immun Denies wheezing Physical exam (Primary Care) Vital Signs: Last Vital Signs Pulse 92 12/22/24 15:20 BP 110/78 12/22/24 15:20 Pulse Ox 92 12/22/24 15:20 Oxygen Delivery Method Room Air 12/22/24 15:20 BMI result Body Mass Index 27.4 Tobacco/Smoking Status: Tobacco use Status Tobacco use date assessed 12/22/24 12/22/24 15:22 Patient Tobacco Use Status Former Tobacco user 12/22/24 15:22 Tobacco use type Cigarette 12/22/24 15:22 e-Cigarette/Vaping Use Never Used 12/22/24 15:22 PHQ-9: PHQ-9 Score PHQ-9: Total score 0 12/22/24 15:40 Depression Screening Interpretation: Negative Thrive Assessment: Date of Thrive Assessment Date Thrive assessed 12/22/24 12/22/24 15:30 Currently or been in a relationship where the following occur: No concerns reported Const General: healthy appearing, no acute distress, alert and awake Nutritional Appearance: well nourished Orientation/consciousness: oriented to person, oriented to place and oriented to time HENMT Ears: TM's normal bilaterally General nose exam: Normal nasal mucous membranes and turbinates present Eyes Conjunctivae: conjunctivae normal Sclerae: sclerae normal Pupils: Equal, round and reactive pupils present Neck Neck: Yes no lymphadenopathy and Yes no JVD Thyroid: Thyroid normal Carotids: no bruits Resp Effort & Inspection: normal respiratory effort and not tachypneic Auscultation: no crackles, no rales, no rhonchi and no wheezes Cardio Rate: regular rate Rhythm: regular rhythm Heart sounds: no murmurs and normal S1 and S2 GI Palpation (GI): Soft to palpation, nontender, no hepatomegaly and no splenomegaly Auscultation: normal bowel sounds Skin General skin exam: no rashes or lesions noted and dry skin Neuro General: oriented to person, oriented to place and oriented to time Cranial nerves: Yes Equal, round and reactive pupils present Speech: No Abnormal speech present Gait exam (Neuro): Normal gait present Motor exam (neuro): no tremor noted Extrem Right upper extremity: full ROM Left upper extremity: full ROM Right lower extremity: full ROM; no edema Left lower extremity: full ROM; no edema Psych Mental Status: mental status grossly normal Speech and movement: Normal speech and movement present Affect: normal affect Attitude: cooperative Thought process: Normal thought process present Orientation What is the (year) (season) (date) (day) (month)?: year Where are we (state) (county) (town or city) (hospital) (floor)?: town or city Attention & Calculation (CHOOSE ONE) Ask pt to begin with 100 & count backward by 7. Stop after 5 repeats. If pt cannot ask them to spell the word WORLD backward.: 65 Spell WORLD backwards (DLROW): 4 letters Language Show patient a wristwatch & ask what it is. Repeat for pencil.: watch Ask the patient to repeat the phrase 'No ifs, ands, or buts' after you.: correct Ask the patient to 'take a piece of paper with their right hand' 'fold paper in half' 'place paper on floor': take paper in right hand Print the sentence 'CLOSE YOUR EYES' on a piece. If patient actually closes eyes then score.: followed written direction Give patient a blank piece of paper & ask to write a sentence. Score if it con tains a noun & verb.: sentence contains subject and verb Score Score: 12 Results AMB Hemoglobin A1c AMB Hemoglobin A1c 5.3 % Last Edit by MAT Fontenot on 12/22/24 15 :46 Coding Level of Care Code Est Pt Level 4 (02419) Diagnoses Type 2 diabetes mellitus with unspecified complications E11.8 Coronary artery disease involving [place] coronary artery of [place] heart without angina pectoris I25.10 Associated angina: without angina Coronary Disease-Associated Artery/Lesion type: [place] artery [place] vs. transplanted heart: [place] heart Essential hypertension I10 Hypertension type: essential hypertension Memory impairment R41.3 Additional Codes PHQ-9 - 17567 - PHQ-9 Billing: Yes ([id number]) MATTHIAS-7 Assessment Billing - MATTHIAS-7 Assessment Tool: MATTHIAS-7 Assessment 22132 ([id number]) Assessment & Plan Assessment & Plan (1) Type 2 diabetes mellitus with unspecified complications: Code(s): E11.8 - Type 2 diabetes mellitus with unspecified complications Category: Medical Plan: As per HPI patient's type 2 diabetes well controlled with current antihyperglycemic med regime. Today's A1c of 5.3 he continues on maximal dose of Ozempic. Goal A1c is to remain below 7.0 (2) CAD (coronary artery disease): Code(s): I25.10 - Atherosclerotic heart disease of [place] coronary artery without angina pectoris Category: Medical Qualifiers: Associated angina: without angina Coronary Disease-Associated Artery/Lesion type: [place] artery [place] vs. transplanted heart: [place] heart Qualified Code(s): I25.10 - Atherosclerotic heart disease of [place] coronary artery without angina pectoris Plan: Patient continues to follow cardiology. Has not had any chest pain no shortness a breath recently. Most recent lipid panel showing excellent control of his tot al cholesterol and LDL. Goal LDL is to remain optimally below 70. (3) HTN (hypertension): Code(s): I10 - Essential (primary) hypertension Category: Medical Qualifiers: Hypertension type: essential hypertension Qualified Code(s): I10 - Essential (primary) hypertension Plan: Patient's blood pressure acceptable today in office. Will continue on his current dose of antihypertensive medication. Goal blood pressures to remain below 140/90 and above 100/60 (4) Memory impairment: Code(s): R41.3 - Other amnesia Category: Medical Plan: Patient reports his has noted him to have a lot more forgetfulness as of lately. Did do mini-mental exam which he has passed today. Clock drawing test appears appropriate. Orders: Orders AMB Hemoglobin A1c Today E11.8 - Type 2 diabetes mellitus with unspecified complications Patient Instructions: Goal: Blood pressure to remain below 140/90, LDL to be below 100, A1c to remain below 7.0 Barriers: Adherence to physical activity and healthy eating habits
[2024-12-22 15:20] VITALS: BP 110/78; PULSE 92; O2SAT 92; BMI 27.4
== END 2024-12-22 15:50 | disposition home or self-care (01) ==
LOC: HO.HMCH 14:59
PROVIDERS: PCP Physician Assistant; Visit Provider Physician Assistant
DX: E11.8 Type 2 diabetes mellitus with unspecified complications (principal); I25.10 Atherosclerotic heart disease of native coronary artery without angina pectoris; I10 Essential (primary) hypertension; R41.3 Other amnesia

== ENCOUNTER → 2024-12-22 14:58 | Outpatient (BNVA) | payer MEDICARE, OTHER, SELFPAY | PROVIDERS: PCP Physician Assistant; Visit Provider Physician Assistant | DX: E11.8 Type 2 diabetes mellitus with unspecified complications (principal); I25.10 Atherosclerotic heart disease of native coronary artery without angina pectoris; I10 Essential (primary) hypertension; R41.3 Other amnesia | CPT/HCPCS: 83036; 96127; 99212 ==

== ENCOUNTER 2025-02-17 13:36 | Outpatient (AMB) | payer MEDICARE, OTHER, SELFPAY ==
--- NOTE | 2025-02-17 13:51 | A.OFFPC_ITS ---
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 Instructions: Doctor's Order lisinopril-hydrochlorothiazide 10-12.5 mg 1 tab PO BID meloxicam 15 mg PO DAILY 90 days metformin 500 mg PO DAILY 90 days metoprolol succinate ER 25 mg PO DAILY semaglutide (Ozempic) 2 mg (0.75 mL) subcut QWEEK 4 weeks tadalafil 20 mg PO DAILY PRN 7 days tramadol 50 mg PO TID PRN 3 days triamcinolone acetonide 0.5% 1 appl topical DAILY 15 days Tobacco use date assessed: 12/22/24 Fall risk assessment: No Falls in past year Last assessed Fall Risk: 02/17/25 Dental Screening Dental Screen Date: 09/22/24 HPI blood pressure is very low 2 HPI Details The patient is a 80-year-old male with significant past medical history of atherosclerotic cardiovascular disease, CAD, HTN. The patient is presenting today with complaints of low blood pressure and dizziness. Patient reports that he check his blood pressure at home this morning and it was 90/60 on his machine. He reports that he has been feeling weak and has been noticing that his blood pressure continues to be low. The patient denies any fevers or chills, denies chest pain or shortness of breath, denies diaphoresis, nausea and vomiting or altered mental status. Patient reports that he does not drink much water and he is only drinking about 2 glasses per day. The patient is currently on lisinopril-hydrochlorothiazide 10-12.5 mg daily and metoprolol succinate ER 25 mg daily and gabapentin 300 mg b.i.d.. He also takes tramadol 50 mg t.i.d. p.r.n. and tadalafil 20 mg daily p.r.n.. All these medication could be playing a role in him feeling weak and dizzy. However, the patient blood pressure is low and he is barely drinking fluids. [facility] Medical History Left hip prosthetic joint infection Post-laminectomy syndrome Lumbar spondylosis Atherosclerotic cardiovascular disease Knee osteoarthritis Surgical History History of hip surgery History of total right knee replacement Status post right knee replacement History of lumbar surgery History of adenoidectomy Hx of prior ablation treatment Hx of nasal septoplasty History of appendectomy Family History Father CHF (congestive heart failure) Mother Dementia Breast cancer Social History Housing: House Alcohol intake: current Alcohol intake frequency: a few times a week Alcohol type: hard liquor Patient Tobacco Use Status: Former Tobacco user Tobacco use type: Cigarette e-Cigarette/Vaping Use: Never Used Second Hand Smoke Exposure: Yes service: Yes Current occupational status: employed and retired Current occupation: [employer] Cognitive needs: No Hearing needs: No Vision needs: Yes Questionnaire Thrive Questionnaire Date Thrive assessed: 02/17/25 I am a: Patient What is your living situation today?: I have a steady place to live Within the past 12 months, did the food you bought not last and you didn't have the money to get more?: Never true Within the past 12 months, did you worry whether your food would run out before you got money to buy more?: Never true Do you have trouble paying for medicines?: No Do you have trouble getting transportation to medical appointments?: No Do you have trouble paying your heating and electricity bill?: No Do you have trouble taking care of your child, family member or friend?: No Do you have trouble with day-to-day activities such as bathing, preparing meals, shopping, managing finances, etc.?: No Are you currently unemployed and looking for a job?: No Are you interested in more education?: No Please select the resources that you would like help with: None Currently or been in a relationship where the following occur: No concerns reported THRIVE Score: 0 MATTHIAS-7 AMB Questionnaire MATTHIAS-7 Date MATTHIAS - 7 assessed: 12/22/24 Source: Developed by Drs. Yaron Gallegos, Pat Hdz, Ernesto Gustafson and colleagues, with an educational meg from [employer]. Review of Systems Const Denies body aches, Denies chills, Denies fever(s), Denies headache(s), Denies poor appetite and Reports weakness (Generalized) Eyes Reports no additional complaints ENT Denies dysphagia, Reports dizziness, Denies headache(s) and Denies odynophagia Card Denies chest pain, Denies syncope, Denies edema, Denies irregular heart rhythm, Denies lightheadedness and Denies dyspnea Resp Denies cough and Denies dyspnea GI Denies abdominal pain, Denies constipation, Denies dysphagia, Denies diarrhea, Denies nausea, Denies odynophagia and Denies vomiting Reports no additional complaints Musc Reports no additional complaints and Denies abnormal gait Skin/Breast Reports system reviewed and no additional complaints, except as documented Neuro Denies abnormal gait, Reports dizziness, Denies syncope, Denies headache(s) and Reports weakness (Generalized) Psych Reports no additional complaints Physical exam (Primary Care) Vital Signs: Last Vital Signs Temp 97.3 F 02/17/25 13:52 Pulse 88 02/17/25 13:52 BP 94/62 02/17/25 14:24 Pulse Ox 96 02/17/25 13:52 Oxygen Delivery Method Room Air 02/17/25 13:52 BMI result Body Mass Index 26.5 Tobacco/Smoking Status: Tobacco use Status Tobacco use date assessed 12/22/24 02/17/25 14:00 Patient Tobacco Use Status Former Tobacco user 02/17/25 14:00 Tobacco use type Cigarette 02/17/25 14:00 e-Cigarette/Vaping Use Never Used 02/17/25 14:00 Thrive Assessment: Date of Thrive Assessment Date Thrive assessed 02/17/25 02/17/25 14:00 Currently or been in a relationship where the following occur: No concerns reported Const General: cooperative, healthy appearing, comfortable and no acute distress Orientation/consciousness: patient oriented x3 HENMT Head: Yes normocephalic Ears: hearing grossly normal bilaterally General nose exam: Normal external nose present Eyes General: appearance normal, both eyes and all related structures Conjunctivae: conjunctivae normal Neck Neck: Yes full ROM and Yes no lymphadenopathy Resp Effort & Inspection: normal respiratory effort Auscultation: clear to auscultation bilaterally, no crackles, no rales, no rhonchi and no wheezes Cardio Rate: regular rate Rhythm: regular rhythm Heart sounds: S1 normal heart sound present and S2 normal heart sound present Peripheral pulses: Peripheral pulses 2+ throughout GI Palpation (GI): Soft to palpation and nontender Auscultation: normal bowel sounds General: Yes no CVA tenderness Back/Spine/Pelvis Back: no CVA tenderness Skin General skin exam: no rashes or lesions noted and dry skin Neuro General: patient oriented x3 and CN's II-XI intact bilaterally Gait exam (Neuro): Normal gait present Motor exam (neuro): 5/5 motor strength present throughout Coordination: Romberg test negative Extrem General: Yes normal to inspection, Yes full ROM and No edema Right upper extremity: full ROM; no edema Left upper extremity: full ROM; no edema Right lower extremity: full ROM; no edema Left lower extremity: full ROM; no edema Psych Affect: normal affect Attitude: cooperative Insight: Good insight present (Psych) Judgement: Good judgement present (Psych) Coding Level of Care Code Est Pt Level 3 (17749) Diagnoses Hypotension, unspecified hypotension type I95.9 Hypotension type: unspecified hypotension type Coronary artery disease involving [place] coronary artery of [place] heart without angina pectoris I25.10 Coronary Disease-Associated Artery/Lesion type: [place] artery [place] vs. transplanted heart: [place] heart Associated angina: without angina Type 2 diabetes mellitus with unspecified complications E11.8 Time Spent (min) 31 Assessment & Plan Assessment & Plan (1) Low blood pressure: Code(s): I95.9 - Hypotension, unspecified Category: Medical Qualifiers: Hypotension type: unspecified hypotension type Qualified Code(s): I95.9 - Hypotension, unspecified Plan: The patient has a history of hypertension and he is being treated with lisinopril-hydrochlorothiazide 10-12.5 mg, metoprolol succinate ER 25 mg daily. The patient tadalafil 20 daily prn affects his blood pressure as well Even though it is not ordered for this reason. Given that the patient is only drinking two glasses of water daily and his heart rate is 88, will place the patient lisinopril-hydrochlorothiazide on hold. Encouraged to continue checking his blood pressure at home and to contact the office if his blood pressure becomes high. The patient is most like dehydrated on top of multiple blood pressure medications lowering his blood pressure to the point of feeling symptoms. Encouraged adequate fluids intake. He also has an appt with cardiology next month, keep this appt to be furthre evaluated. (2) CAD (coronary artery disease): Code(s): I25.10 - Atherosclerotic heart disease of [place] coronary artery without angina pectoris Category: Medical Qualifiers: Coronary Disease-Associated Artery/Lesion type: [place] artery [place] vs. transplanted heart: [place] heart Associated angina: without angina Qualified Code(s): I25.10 - Atherosclerotic heart disease of [place] coronary artery without angina pectoris Plan: The patient denies chest pain and sob, he does not appear to be having any ACS event and there is no anginal symptoms present. Continue aspirin 81 mg daily, atorvastatin 80 mg daily and metoprolol succinate ER 25 mg daily Follow up with Cardiology as scheduled (3) Type 2 diabetes mellitus with unspecified complications: Code(s): E11.8 - Type 2 diabetes mellitus with unspecified complications Category: Medical Plan: The patient has no change in mentation in his well aware if condition. It does not appears to be having any low blood sugars. A1c done in office is 5.3%, basically where it has always been. Orders: Orders AMB Hemoglobin A1c 02/17/25 E11.8 - Type 2 diabetes mellitus with unspecified complications Medications: New lisinopril-hydrochlorothiazide 10-12.5 mg 1 tab PO DAILY
[2025-02-17 13:52] VITALS: BP 110/66; PULSE 88; TEMP 36.3; O2SAT 96; BMI 26.5
[2025-02-17 14:24] VITALS: BP 92/58; BP 94/62
--- OUTSIDE RECORDS SUMMARY | 2025-02-17 15:52 | XMS_ITS | Patient Health Record ---
Author Organization [facility] Address [address] [place] [address] Care Team Providers Care Crew Clerk Name Role Phone Nava (RETIRED) Laurent CONCEPCION Primary Care Provide r Unavailable Yaron Santa Unavailable [phone] Reason For Referral No Information Medications Medication SIG (Take, Route, Frequency, Duration) Notes Start Date End Date Status Arthritis Pain Relief Active Vitamin C & D3/Roro Hips Active Centrum Silver Activ e Omeprazole Active metFORMIN HCl Active Atorvastatin Calcium Active Valsartan Active Fish Oil Active Vitamin D Active Fabian Aspirin Active Problems Problem Type SNOMED Code ICD Code Onset Dates Problem Status W/U Status Risk Notes Problem 790785728 Encounter for screening for malignant neoplasm of colon (Z12.11) Active confirmed Problem 893604170 History of adenomatous polyp of colon (Z86.010) Active confirmed Problem Screening for malignant neoplasm of rectum (849988574) Encounter for screening for malignant neoplasm of rectum (Z12.12) Active confirmed Problem 781132076 Gastroesophageal reflux disease without esophagitis (K21.9) Active confirmed Problem 24004210 Preprocedural examination (Z01.818) Active confirmed Plan Of Treatment Pending Test Test Name Order Date GI BIOPSY 06/27/2016 Future Test Test Name Order Date COLONOSCOPY 04/04/2016 Insurance Providers Payer Name Payer Address Payer Phone Subscriber Number Group Number Insured Name Patient Relationship to Insured Coverage Start Date Coverage End Date [facility] [address] [facility] [place] [phone] [id number] JM PAIGE Self - patient is the insured Medical (General) History Medical History History ICD Code Colonoscopy 05-04-2010--sigmoid diverticul osis and internal hemorrhoids Tubular adenoma removed in 2004; he had a negative colonoscopy in 1998. Denies [place],CVA,Lung disease,renal disease NIDDM Hyperlipidemia GERD HTN Surgical History Surgery Date(Month/Year) Appendectomy Tonsillectomy Back surgery--herniated disc/sciatica
== END 2025-02-17 14:32 | disposition home or self-care (01) ==
LOC: HO.HMCH 13:37
PROVIDERS: PCP Physician Assistant
DX: I95.9 Hypotension, unspecified (principal); I25.10 Atherosclerotic heart disease of native coronary artery without angina pectoris; E11.8 Type 2 diabetes mellitus with unspecified complications

== ENCOUNTER → 2025-02-17 13:36 | Outpatient (BNVA) | payer MEDICARE, OTHER, SELFPAY | PROVIDERS: PCP Physician Assistant | DX: I95.9 Hypotension, unspecified (principal); I25.10 Atherosclerotic heart disease of native coronary artery without angina pectoris; E11.8 Type 2 diabetes mellitus with unspecified complications | CPT/HCPCS: 99212 ==

== ENCOUNTER → 2025-03-05 09:50 | Outpatient (REF) | payer MEDICARE, OTHER, SELFPAY ==
--- NOTE | 2025-03-05 09:53 | CA_ITS ---
Transthoracic Echocardiogram Patient (Last, First, Middle): Freddie Mancilla R Gender: Male Date of : 1945 Age: 80 Procedure Date: 03/05/2025 Procedure Type: Transthoracic Echocardiogram Location: OP Height: 177.8 cm Weight: 84.37 kg BSA: 2.02 m2 Heart Rate: bpm BP: 118 / 70 mmHg Insurance Licensing Supervisor: TO Referring MD: Josep Garner MD Hand Singer: Darryl Almaguer MD Symptoms: I35.0 - Nonrheumatic aortic (valve) stenosis Study Quality: Fair ECG Rhythm: Sinus Conclusions: - 1. Normal LV ejection fraction of 60 65% with grade 1 diastolic dysfunction 2. Moderate aortic stenosis and mild aortic regurgitation 3. Normal RV systolic pressure 4. No gross pericardial effusion Findings Left Ventricle Normal left ventricular size, thickness, and systolic function. The visually estimated ejection fraction is between 60-65%. Spectral Doppler is indicative of an impaired relaxation filling pattern. E/E prime ratio is <8, consistent with normal filling pressures. Evidence suggests grade I (mild) diastolic dysfunction. There is mild septal asymmetric hypertrophy. Right Ventricle Normal right ventricular cavity size and systolic function. Atria The left atrium is likely dilated. There is no evidence of interatrial shunt. The right atrium is normal in size. Aortic Valve There is moderate calcification of the aortic valve. There is no evidence of thickening of the aortic valve. There is moderate aortic valve stenosis. The peak aortic gradient is 37 mmHg.The mean gradient is 24 mmHg. The aortic valve area is 1.32 cm2. There is mild aortic valve regurgitation. Mitral Valve There is mild anterior mitral leaflet thickening. There is trace mitral valve regurgitation. There is no mitral valve stenosis. Tricuspid Valve Likely normal tricuspid valve structure and function. There is trace tricuspid valve regurgitation. The right ventricular systolic pressure is normal. The right ventricular systolic pressure is 26 mmHg. Normal right atrial pressure. There is no evidence of pulmonary hypertension. Great Vessels All visible segments of the aorta are normal in size. The pulmonary artery was not well visualized. There is no dilatation of the ascending aorta measuring 3.30 cm. Venous The inferior vena cava is normal in size and collapses greater than 50% with inspiration. Pericardium/Pleural There is no evidence of pericardial effusion. Prior Study Comparison Changes noted compared to prior study dated: 03/19/2023. aortic stenosis has progressed to moderate aortic stenosis Measurements 2D Linear Measurements IVSd: 1.18 0.6-0.9/0.6-1.0 cm LVIDd: 4.57 3.9-5.3/4.2-5.9 cm LVIDd Index: 2.26 2.4-3.2/2.2-3.1 cm/m2 LVIDs: 2.52 2.0-3.6 cm LVPWd: 0.86 0.7-1.1 cm LA Diam: 3.60 2.7-3.8/3.0-4.0 cm LAIDs Index: 1.78 1.5-2.3 cm/m2 LV Mass: 201.37 67-162/88-224 g LV Mass Index: 99.69 43-95/49-115 g/m2 LVOT Diam: 2.10 3.0+(-)1.3 cm 2D Systolic Function EF 4C: 60.50 >55% Mitral Valve MV Pk E: 0.59 MV PK A: 0.60 MV Decel Time: 206.00 E/A: 1.00 E'Lateral: 7.40 E'Medial: 5.11 E/E' Med: 11.50 E/E' Lat: 7.90 PHT: 60.00 MVA PHT: 3.67 Decel Burt: 2.85 Aortic Valve AoV Pk Arik: 3.05 AoV Mn Arik: 2.38 AoV VTI: 0.67 AoV Pk Grad: 37.00 Aov Mn Grad: 24.00 [place] Cont.VTI: 1.32 LVOT LVOT Pk Arik: 1.12 LVOT Mn Arik: 0.86 LVOT VTI: 0.26 LVOT Pk Grad: 5.00 LVOT Mn Grad: 3.00 LVOT Diam: 2.10 LVOT Area: 3.46 Diastolic Function MV Pk E: 0.59 MV Pk A: 0.60 E/A: 1.00 E'Medial: 5.11 E/E' Med: 11.50 E' Laterial: 7.40 E/E' Lat: 7.90 Right Ventricle TAPSE (mm): 23.50 TVS' Arik: 10.80 Tricuspid Valve TR Pk Arik: 2.38 TR Pk Grad: 23.00 RA Press: 3.00 RVSP: 26.00 Great Vessels Aorta Sinus of Valsalva: 3.46 2.0-3.[address] [place]: 2.63 1.7-3.4 cm Ao Asc: 3.30 2.1-3.4 cm Updated in Other Vendor System with Status of Final Darryl Almaguer MD electronically signed on 03/05/2025 4:15:47 PM with status of Final
--- OUTSIDE RECORDS SUMMARY | 2025-03-05 10:23 | XMS_ITS | Patient Health Record ---
Author Organization [facility] Address [address] [place] [address] Care Team Providers Care Warehouse Team Member Name Role Phone Nava (RETIRED) Laurent CONCEPCION Primary Care Provide r Unavailable Yaron Santa Unavailable [phone] Reason For Referral No Information Medications Medication [...] Problem Status W/U Status Risk Notes Problem [id number] Encounter for screening for malignant neoplasm of colon (Z12.11) Active confirmed Problem 879393964 History of adenomatous polyp of colon (Z86.010) Active confirmed Problem Screening for malignant neoplasm of rectum (390457199) Encounter for screening for malignant neoplasm of rectum (Z12.12) Active confirmed Problem 136914308 Gastroesophageal reflux disease without esophagitis (K21.9) Active confirmed Problem 95082222 Preprocedural examination (Z01.818) Active confirmed Plan Of Treatment Pending Test Test Name Order Date GI BIOPSY 06/27/2016 Future Test Test Name Order Date COLONOSCOPY 04/04/2016 Insurance Providers Payer Name Payer Address Payer Phone Subscriber Number Group Number Insured Name Patient Relationship to Insured Coverage Start Date Coverage End Date [facility] [address] [facility] [place] [phone] [id number] JM PAIGE Self - patient is the insured Medical (General) History Medical History History ICD Code Colonoscopy 05-04-2010--sigmoid diverticul osis and internal hemorrhoids Tubular adenoma removed in 2004; he had a negative colonoscopy in 1998. Denies [place],CVA,Lung disease,renal disease NIDDM Hyperlipidemia GERD HTN Surgical History Surgery Date(Month/Year) Appendectomy Tonsillectomy Back surgery--herniated disc/sciatica
== END ==
LOC: HO.CARD 09:50
PROVIDERS: PCP Physician Assistant; Visit Provider Nurse Practitioner Family
DX: I35.0 Nonrheumatic aortic (valve) stenosis (principal)
CPT/HCPCS: 93306

== ENCOUNTER → 2025-03-05 09:53 | Outpatient (BNV) | payer MEDICARE, OTHER, SELFPAY | PROVIDERS: PCP Physician Assistant; Visit Provider Internal Medicine Cardiovascular Disease | DX: I35.0 Nonrheumatic aortic (valve) stenosis (principal) | CPT/HCPCS: 93306 ==

== ENCOUNTER → 2025-03-20 14:00 | Outpatient (BNVA) | payer MEDICARE, OTHER, SELFPAY | PROVIDERS: PCP Physician Assistant | DX: Z01.30 Encounter for examination of blood pressure without abnormal findings (principal) | CPT/HCPCS: 99211 ==

== ENCOUNTER 2025-03-24 12:38 | Outpatient (AMB) | payer MEDICARE, OTHER, SELFPAY ==
[2025-03-24 12:51] VITALS: BP 122/66; PULSE 98; BMI 26.4
--- NOTE | 2025-03-24 12:51 | A.OFFVIS_ITS ---
Vital Signs 03/24/25 12:51 Height 5 ft 10 in Weight 184 lb BMI 26.4 BP 122/66 Blood Pressure Location Lt brachial Position Sitting Pulse 98 Pulse Source Monitor Intake Visit Reasons: 1 year f/up Allergies No Known Allergies Allergy (Verified 02/17/25 14:03) Medication List - Last Reconciled 03/24/25 by Josep Garner MD aspirin 81 mg PO DAILY atorvastatin 80 mg PO DAILY 90 days gabapentin 300 mg PO BID 90 days ibuprofen 800 mg PO Q12H Held on 08/22/21. Instructions: Doctor's Order lisinopril-hydrochlorothiazide 10-12.5 mg 1 tab PO DAILY meloxicam 15 mg PO DAILY 90 days metformin 500 mg PO DAILY 90 days metoprolol succinate ER 25 mg PO DAILY semaglutide (Ozempic) 2 mg (0.75 mL) subcut QWEEK 4 weeks tadalafil 20 mg PO DAILY PRN 7 days tramadol 50 mg PO TID PRN 3 days triamcinolone acetonide 0.5% 1 appl topical DAILY 15 days HPI Comments Details: Freddie returns for follow-up regarding coronary artery disease and aortic stenosis. Overall, he is doing fine. No clear-cut symptoms like angina or shortness of breath or in fact anything cardiac sounding. He is getting along well. [facility] Medical History Left hip prosthetic joint infection Post-laminectomy syndrome Lumbar spondylosis Atherosclerotic cardiovascular disease Knee osteoarthritis Surgical History History of hip surgery History of total right knee replacement Status post right knee replacement History of lumbar surgery History of adenoidectomy Hx of prior ablation treatment Hx of nasal septoplasty History of appendectomy Family History Father CHF (congestive heart failure) Mother Dementia Breast cancer Social History Housing: House Alcohol intake: current Alcohol intake frequency: a few times a week Alcohol type: hard liquor Patient Tobacco Use Status: Former Tobacco user Tobacco use type: Cigarette e-Cigarette/Vaping Use: Never Used Second Hand Smoke Exposure: Yes service: Yes Current occupational status: employed and retired Current occupation: [employer] Cognitive needs: No Hearing needs: No Vision needs: Yes Review of Systems Const Denies weakness ENT Denies dizziness Card Reports no additional complaints, Denies chest pain, Denies chest pain with activity, Denies syncope, Denies rapid heart rate, Denies pedal edema, Denies edema, Denies leg edema, Denies lightheadedness, Denies palpitations, Denies dyspnea, Denies dyspnea on exertion and Denies orthopnea Resp Denies cough, Denies dyspnea and Denies dyspnea on exertion GI Denies hematochezia and Denies change in stool character Musc Denies abnormal gait, Denies muscle cramps, Denies muscle weakness, Denies numbness, Denies radiating pain into limb and Denies tingling Neuro Denies abnormal gait, Denies dizziness, Denies syncope, Denies numbness, Denies tingling and Denies weakness Endo Denies palpitations Physical Exam Vital Signs: Last Vital Signs Pulse 98 03/24/25 12:51 BP 122/66 03/24/25 12:51 BMI result Body Mass Index 26.4 Const General: comfortable and no acute distress Orientation/consciousness: patient oriented x3 HEENT Other: Unremarkable Head: Yes normal to inspection Neck Neck: Yes normal visual inspection Chest Chest palpation & inspection: normal inspection of the chest Resp Auscultation: clear to auscultation bilaterally Cardio Palpation: normal PMI Heart sounds: S1 normal heart sound present, S2 normal heart sound present, no gallops, Murmur heart sound present systolic III/ and no rubs GI Palpation (GI): Soft to palpation Back/Spine/Pelvis Other: unremarkable Skin General skin exam: no rashes or lesions noted Neuro General: patient oriented x3 Extrem General: Yes normal to inspection Psych Mental Status: mental status grossly normal Office Procedures EKG Details: EKG with underlying sinus rhythm at 98/Min; right bundle-branch block pattern; [place] [id number], Complete Assessment & Plan Assessment & Plan (1) Atherosclerotic cardiovascular disease: Code(s): I25.10 - Atherosclerotic heart disease of [place] coronary artery without angina pectoris Category: Medical Plan: Cardiac studies reviewed. Coronary CTA reviewed- 2019- mild, less than 50% stenosis of the mid LAD; [id number] calcification RCA at the proximal to mid junction but no high- grade stenosis. Myocardial perfusion imaging study from 2018 did not show any ischemic findings. He is being treated for stable coronary disease. Clinically, absolutely no angina. (2) Nonrheumatic aortic (valve) stenosis: Code(s): I35.0 - Nonrheumatic aortic (valve) stenosis Category: Medical Plan: In the most recent echocardiogram, moderate aortic valve calcification with moderate stenosis. Pathophysiology, symptoms, natural course, treatment options discussed. (3) Essential hypertension: Code(s): I10 - Essential (primary) hypertension Category: Medical Plan: On metoprolol/lisinopril/hydrochlorothiazide. Blood pressure seems stable. (4) Other and unspecified hyperlipidemia: Code(s): E78.5 - Hyperlipidemia, unspecified Category: Medical Plan: Most recent LDL 44 mg/dL. Triglycerides 95 mg/dL. Continue statins. (5) Type 2 diabetes mellitus with unspecified complications: Code(s): E11.8 - Type 2 diabetes mellitus with unspecified complications Category: Medical Plan: On Metformin, Ozempic. Last hemoglobin A1c is 5.3%. (6) ISMA (obstructive sleep apnea): Code(s): G47.33 - Obstructive sleep apnea (adult) (pediatric) Category: Medical Plan: On CPAP. Plan Discussion Notes I discussed with the patient the current status of his aortic valve stenosis, explaining that while there is some progression, it is not yet severe enough to warrant intervention. We reviewed the symptoms to watch for, such as shortness of breath and decreased stamina, which would indicate the need for further evaluation. I advised a follow-up in six months unless symptoms worsen, in which case he should contact me sooner. Patient was informed and verbally consented to the use of an ambient scribe for clinic note documentation during this visit. Orders: Orders CA echo transthoracic complete 6 Months I35.0 - Nonrheumatic aortic (valve) stenosis Patient Instructions: - Monitor for symptoms like shortness of breath or decreased stamina. - Continue using CPAP machine as prescribed. - Schedule a follow-up appointment in six months. - Contact the doctor if symptoms worsen before the next appointment. Coding Level of Care Code Est Pt Level 4 (91446) Complex EM visit Add On G2211 Diagnoses Atherosclerotic cardiovascular disease I25.10 Nonrheumatic aortic (valve) stenosis I35.0 Essential hypertension I10 Other and unspecified hyperlipidemia E78.5 Type 2 diabetes mellitus with unspecified complications E11.8 ISMA (obstructive sleep apnea) G47.33 CPT Codes EKG - CPT: 70244-[id number], Complete ([id number])
--- OUTSIDE RECORDS SUMMARY | 2025-03-24 13:24 | XMS_ITS | Patient Health Record ---
Author Organization [facility] Address [address] [place] [address] Care Team Providers Care Alterations Sewer Name Role Phone Nava (RETIRED) Laurent CONCEPCION Primary Care Provide r Unavailable Yaron Santa Unavailable [phone] Reason For Referral No Information Medications Medication [...] Problem Status W/U Status Risk Notes Problem 774934447 Encounter for screening for malignant neoplasm of colon (Z12.11) Active confirmed Problem 814532979 History of adenomatous polyp of colon (Z86.010) Active confirmed Problem Screening for malignant neoplasm of rectum (260763603) Encounter for screening for malignant neoplasm of rectum (Z12.12) Active confirmed Problem 362723628 Gastroesophageal reflux disease without esophagitis (K21.9) Active confirmed Problem 20591861 Preprocedural examination (Z01.818) Active confirmed Plan Of Treatment Pending Test Test Name Order Date GI BIOPSY 06/27/2016 Future Test Test Name Order Date COLONOSCOPY 04/04/2016 Insurance Providers Payer Name Payer Address Payer Phone Subscriber Number Group Number Insured Name Patient Relationship to Insured Coverage Start Date Coverage End Date [facility] [address] [facility] [place] [phone] [id number] JM PAIGE Self - patient is the insured Medical (General) History Medical History History ICD Code Colonoscopy 05-04-2010--sigmoid diverticul osis and internal hemorrhoids Tubular adenoma removed in 2004; he had a negative colonoscopy in 1998. Denies [place],CVA,Lung disease,renal disease NIDDM Hyperlipidemia GERD HTN Surgical History Surgery Date(Month/Year) Appendectomy Tonsillectomy Back surgery--herniated disc/sciatica
== END 2025-03-24 13:14 | disposition home or self-care (01) ==
LOC: HO.HCS 12:38
PROVIDERS: PCP Physician Assistant; Visit Provider Internal Medicine
DX: I25.10 Atherosclerotic heart disease of native coronary artery without angina pectoris (principal); I35.0 Nonrheumatic aortic (valve) stenosis; I10 Essential (primary) hypertension; E78.5 Hyperlipidemia, unspecified; E11.8 Type 2 diabetes mellitus with unspecified complications; G47.33 Obstructive sleep apnea (adult) (pediatric)
CPT/HCPCS: 93010; 99214; G2211

== ENCOUNTER → 2025-03-24 12:38 | Outpatient (BNVA) | payer MEDICARE, OTHER, SELFPAY | PROVIDERS: PCP Physician Assistant; Visit Provider Internal Medicine | DX: I25.10 Atherosclerotic heart disease of native coronary artery without angina pectoris (principal); I35.0 Nonrheumatic aortic (valve) stenosis; R94.31 Abnormal electrocardiogram [ECG] [EKG]; I45.10 Unspecified right bundle-branch block; I10 Essential (primary) hypertension; E78.5 Hyperlipidemia, unspecified; E11.8 Type 2 diabetes mellitus with unspecified complications; G47.33 Obstructive sleep apnea (adult) (pediatric); Z79.82 Long term (current) use of aspirin; Z79.84 Long term (current) use of oral hypoglycemic drugs; Z79.891 Long term (current) use of opiate analgesic; Z79.899 Other long term (current) drug therapy | CPT/HCPCS: 93005; 99212 ==

== ENCOUNTER 2025-06-23 08:38 | Outpatient (AMB) | payer MEDICARE, OTHER, SELFPAY ==
[2025-06-23 09:16] VITALS: BP 120/60; PULSE 77; O2SAT 97; BMI 28.7
--- NOTE | 2025-06-23 09:16 | A.OFFPC_ITS ---
Vital Signs 06/23/25 09:16 Height 5 ft 10 in Weight 200 lb BMI 28.7 BP 120/60 Blood Pressure Location Lt brachial Position Sitting Pulse 77 Pulse Source Pulse Oximeter Pulse Oximetry (%) 97 Oxygen Delivery Method Room Air Intake Visit Reasons: Annual Exam - see comments Intake Note: Patient is here today for a physical. Internet Manager Required: No Assistant Media Planner: Present Accompanied by: Spouse Allergies No Known Allergies Allergy (Verified 06/23/25 09:30) Medication List - Last Reconciled 06/23/25 by Arnold Guaman PA-C aspirin 81 mg PO DAILY atorvastatin 80 mg PO DAILY 90 days gabapentin 300 mg PO BID 90 days ibuprofen 800 mg PO Q12H Held on 08/22/21. Instructions: Doctor's Order lisinopril-hydrochlorothiazide 10-12.5 mg 1 tab PO DAILY meloxicam 15 mg PO DAILY 90 days metformin 500 mg PO DAILY 90 days metoprolol succinate ER 25 mg PO DAILY tadalafil 20 mg PO DAILY PRN 7 days tirzepatide (Mounjaro) 2.5 mg (0.5 mL) subcut QWEEK 4 weeks tramadol 50 mg PO TID PRN 3 days triamcinolone acetonide 0.5% 1 appl topical DAILY 15 days Tobacco use date assessed: 06/23/25 Fall risk assessment: No Falls in past year Last assessed Fall Risk: 06/23/25 Dental Screening Dental Screen Date: 09/22/24 HPI Annual Exam - see comments HPI Details Patient is a 80-year-old male here today for routine annual physical Patient has a past medical history significant for type 2 diabetes, coronary artery disease, hypertension. Concern--> patient reports he has been experiencing forgetfulness as of late and has been noticed by his . Patient's loved ones are interested in Freddie being evaluated for dementia. He is open to the idea of getting an MRI of the brain .. Hypertension: Patient's blood pressure acceptable today in office. He continues on lisinopril 10 mg. .. Type 2 diabetes: Have noted a 15 lb weight gain since the spring, he reports his hunger has been elevated as of late.. The patient's diabetes is managed with a GLP-1 agonist. He was previously on Ozempic 2.0 mg but was switched to a different medication, and he is now on a 2.5 mg dose. Since switching medications, he reports experiencing increased hunger throughout the day. PLAN: Will increased dose of GLP 1 help reduce his hunger. Today's A1c acceptable at 5.2. /.. Obstructive sleep apnea: Followed by sleep specialist at [facility]. Uses CPAP on a nightly basis with good effect. .. Aortic Valve calcification/ CAD:? Is followed by Cardiology on a six-month basis.? Most recent lipid panel showing excellent control of his total cholesterol and LDL. Continues on high dose statin therapy. Patient had episodes of low blood pressure this metoprolol has been held. Today's blood pressure is stable thus will continue to hold metoprolol 25 mg. Vaccines:? UTD with Tdap , COVID and Shingles???, up-to-date with pneumonia vaccine, RSV vaccine, flu vaccine Colon cancer screening: No further colonoscopy is needed [facility] Medical History Left hip prosthetic joint infection Post-laminectomy syndrome Lumbar spondylosis Atherosclerotic cardiovascular disease Knee osteoarthritis Surgical History History of hip surgery History of total right knee replacement Status post right knee replacement History of lumbar surgery History of adenoidectomy Hx of prior ablation treatment Hx of nasal septoplasty History of appendectomy Family History Father CHF (congestive heart failure) Mother Dementia Breast cancer Social History (Updated 06/23/25 @ 09:37 by Arnold Guaman PA-C) Housing: House Alcohol intake: current Alcohol intake frequency: a few times a week Alcohol type: hard liquor Patient Tobacco Use Status: Former Tobacco user Tobacco use type: Cigarette e-Cigarette/Vaping Use: Never Used Second Hand Smoke Exposure: Yes service: Yes Current occupational status: retired Current occupation: Retired from [employer] Cognitive needs: No Hearing needs: No Vision needs: Yes Questionnaire Thrive Questionnaire Date Thrive assessed: 12/22/24 I am a: Patient What is your living situation today?: I have a steady place to live Within the past 12 months, did the food you bought not last and you didn't have the money to get more?: Never true Within the past 12 months, did you worry whether your food would run out before you got money to buy more?: Never true Do you have trouble paying for medicines?: No Do you have trouble getting transportation to medical appointments?: No Do you have trouble paying your heating and electricity bill?: No Do you have trouble taking care of your child, family member or friend?: No Do you have trouble with day-to-day activities such as bathing, preparing meals, shopping, managing finances, etc.?: No Are you currently unemployed and looking for a job?: No Are you interested in more education?: No Please select the resources that you would like help with: None Currently or been in a relationship where the following occur: No concerns reported THRIVE Score: 0 MATTHIAS-7 AMB Questionnaire MATTHIAS-7 Date MATTHIAS - 7 assessed: 12/22/24 Source: Developed by Drs. Yaron Gallegos, Pat Hdz, Ernesto Gustafson and colleagues, with an educational meg from [employer]. Review of Systems Const Denies headache(s) Eyes Denies loss of vision ENT Denies vertigo, Denies dizziness, Denies headache(s) and Denies sore throat Card Denies chest pain, Denies leg edema and Denies lightheadedness Resp Denies cough, Denies hemoptysis and Denies wheezing GI Denies abdominal pain, Denies melena, Denies constipation, Denies diarrhea and Denies vomiting Denies dysuria, Denies urinary frequency and Denies urinary urgency Musc Denies arthralgias, Denies joint swelling, Denies numbness and Denies tingling Neuro Denies Abnormal speech present, Denies behavioral changes, Denies vertigo, Denies dizziness, Denies headache(s), Denies loss of vision, Denies memory loss, Denies numbness and Denies tingling Psych Denies anxiety, Denies behavioral changes, Denies depression, Denies memory loss and Denies panic attacks Aldo/Lymph Denies easy bleeding and Denies easy bruising Aller/Immun Denies wheezing Physical exam (Primary Care) Vital Signs: Last Vital Signs Pulse 77 06/23/25 09:16 BP 120/60 06/23/25 09:16 Pulse Ox 97 06/23/25 09:16 Oxygen Delivery Method Room Air 06/23/25 09:16 BMI result Body Mass Index 28.7 Tobacco/Smoking Status: Tobacco use Status Tobacco use date assessed 06/23/25 06/23/25 09:20 Patient Tobacco Use Status Former Tobacco user 06/23/25 09:20 Tobacco use type Cigarette 06/23/25 09:20 e-Cigarette/Vaping Use Never Used 06/23/25 09:20 Thrive Assessment: Date of Thrive Assessment Date Thrive assessed 12/22/24 06/23/25 09:20 Currently or been in a relationship where the following occur: No concerns reported Const General: healthy appearing, no acute distress, alert and awake Nutritional Appearance: well nourished Orientation/consciousness: oriented to person, oriented to place and oriented to time HENMT Ears: TM's normal bilaterally General nose exam: Normal nasal mucous membranes and turbinates present Eyes Conjunctivae: conjunctivae normal Sclerae: sclerae normal Pupils: Equal, round and reactive pupils present Neck Neck: Yes no lymphadenopathy and Yes no JVD Thyroid: Thyroid normal Carotids: no bruits Resp Effort & Inspection: normal respiratory effort and not tachypneic Auscultation: no crackles, no rales, no rhonchi and no wheezes Cardio Rate: regular rate Rhythm: regular rhythm Heart sounds: no murmurs and normal S1 and S2 GI Palpation (GI): Soft to palpation, nontender, no hepatomegaly and no splenomegaly Auscultation: normal bowel sounds Skin General skin exam: no rashes or lesions noted and dry skin Neuro General: oriented to person, oriented to place and oriented to time Cranial nerves: Yes Equal, round and reactive pupils present Speech: No Abnormal speech present Gait exam (Neuro): Normal gait present Motor exam (neuro): no tremor noted Extrem Right upper extremity: full ROM Left upper extremity: full ROM Right lower extremity: full ROM; no edema Left lower extremity: full ROM; no edema Psych Mental Status: mental status grossly normal Speech and movement: Normal speech and movement present Affect: normal affect Attitude: cooperative Thought process: Normal thought process present Results AMB Hemoglobin A1c AMB Hemoglobin A1c 5.2 % Last Edit by MAT Nino on 06/23/25 09:34 Coding Level of Care Code Est Pt Prev Care >65y(20871) Diagnoses Annual physical exam Z00.00 Cognitive decline R41.89 Type 2 diabetes mellitus with unspecified complications E11.8 Coronary artery disease involving [place] coronary artery of [place] heart without angina pectoris I25.10 Coronary Disease-Associated Artery/Lesion type: [place] artery [place] vs. transplanted heart: [place] heart Associated angina: without angina Essential hypertension I10 Hypertension type: essential hypertension Memory impairment R41.3 Assessment & Plan Assessment & Plan (1) Annual physical exam: Code(s): Z00.00 - Encounter for general adult medical examination without abnormal findings Category: Medical Plan: As per HPI (2) Cognitive decline: Code(s): R41.89 - Other symptoms and signs involving cognitive functions and awareness Category: Medical Plan: Patients level ones concerned about [place] cognitive decline. Freddie is not really interested in further assessment though does agree to an MRI to evaluate for any intracranial pathology. MRI ordered. (3) Type 2 diabetes mellitus with unspecified complications: Code(s): E11.8 - Type 2 diabetes mellitus with unspecified complications Category: Medical Plan: As per HPI patient's type 2 diabetes well controlled with current antihyperglycemic med regime. Today's A1c of 5.2 we have switched patient to an alternative GLP 1 (mounjaro) will continue to up titrate per response. He reports being very hungry still. Goal A1c is to remain below 7.0 (4) CAD (coronary artery disease): Code(s): I25.10 - Atherosclerotic heart disease of [place] coronary artery without angina pectoris Category: Medical Qualifiers: Coronary Disease-Associated Artery/Lesion type: [place] artery [place] vs. transplanted heart: [place] heart Associated angina: without angina Qualified Code(s): I25.10 - Atherosclerotic heart disease of [place] coronary artery without angina pectoris Plan: Patient continues to follow cardiology. Has not had any chest pain no shortness a breath recently. Most recent lipid panel showing excellent control of his total cholesterol and LDL. Goal LDL is to remain optimally below 70. (5) HTN (hypertension): Code(s): I10 - Essential (primary) hypertension Category: Medical Qualifiers: Hypertension type: essential hypertension Qualified Code(s): I10 - Essential (primary) hypertension Plan: Patient's blood pressure acceptable today in office. Will continue on his current dose of antihypertensive medication. Goal blood pressures to remain below 140/90 and above 100/60 (6) Memory impairment: Code(s): R41.3 - Other amnesia Category: Medical Plan: As above. Patient reports his has noted him to have a lot more forgetfulness as of lately. Did do mini-mental exam which he has passed today. Clock drawing test appears appropriate. Orders: Orders AMB Hemoglobin A1c Today E11.8 - Type 2 diabetes mellitus with unspecified complications, R73.09 - Other abnormal glucose Medications: New tirzepatide (Mounjaro) 5 mg (0.5 mL) subcut QWEEK 2 mL 1RF 4 weeks E11.8 - Type 2 diabetes mellitus with unspecified complications Discontinued tirzepatide (Mounjaro) for 4 weeks Discontinued Reason: Doctor's Order 2.5 mg (0.5 mL) subcut QWEEK 4 weeks 2 mL 1RF E11.8 - Type 2 diabetes mellitus with unspecified complications Patient Instructions: Goal: A1c to remain below 7.0, blood pressure to remain below 130/90
--- OUTSIDE RECORDS SUMMARY | 2025-06-23 09:23 | XMS_ITS | Patient Health Record ---
Author Organization [facility] Address [address] [place] [address] Care Team Providers Care Blanching Machine Operator Name Role Phone Nava (RETIRED) Laurent CONCEPCION Primary Care Provide r Unavailable Yaron Santa Unavailable [phone] Reason For Referral No Information Medications Medication [...] Problem Status W/U Status Risk Notes Problem Screening for malignant neoplasm of colon (495286237) Encounter for screening for malignant neoplasm of colon (Z12.11) Active confirmed Problem History of adenomatous polyp of colon (680837057) History of adenomatous polyp of colon (Z86.010) Active confirmed Problem Screening for malignant neoplasm of rectum (316116336) Encounter for screening for malignant neoplasm of rectum (Z12.12) Active confirmed Problem Gastroesophageal reflux disease without esophagitis (407857274) Gastroesophageal reflux disease without esophagitis (K21.9) Active confirmed Problem Preprocedural examination (820554191072909) Preprocedural examination (Z01.818) Active confirmed Plan Of Treatment Pending Test Test Name Order Date GI BIOPSY 06/27/2016 Future Test Test Name Order Date COLONOSCOPY 04/04/2016 Insurance Providers Payer Name Payer Address Payer Phone Subscriber Number Group Number Insured Name Patient Relationship to Insured Coverage Start Date Coverage End Date [facility] [address] [facility] [place] [phone] [id number] JM PAIGE Self - patient is the insured Medical (General) History Medical History History ICD Code Colonoscopy 05-04-2010--sigmoid diverticul osis and internal hemorrhoids Tubular adenoma removed in 2004; he had a negative colonoscopy in 1998. Denies [place],CVA,Lung disease,renal disease NIDDM Hyperlipidemia GERD HTN Surgical History Surgery Date(Month/Year) Appendectomy Tonsillectomy Back surgery--herniated disc/sciatica
== END 2025-06-23 10:03 | disposition home or self-care (01) ==
LOC: HO.HMCH 08:39
PROVIDERS: PCP Physician Assistant; Visit Provider Physician Assistant
DX: Z00.00 Encounter for general adult medical examination without abnormal findings (principal); R41.89 Other symptoms and signs involving cognitive functions and awareness; E11.8 Type 2 diabetes mellitus with unspecified complications; I25.10 Atherosclerotic heart disease of native coronary artery without angina pectoris; I10 Essential (primary) hypertension; R41.3 Other amnesia; R73.09 Other abnormal glucose

== ENCOUNTER → 2025-06-23 08:38 | Outpatient (BNVA) | payer MEDICARE, OTHER, SELFPAY | PROVIDERS: PCP Physician Assistant; Visit Provider Physician Assistant | DX: Z00.00 Encounter for general adult medical examination without abnormal findings (principal); I10 Essential (primary) hypertension; E11.9 Type 2 diabetes mellitus without complications; G47.33 Obstructive sleep apnea (adult) (pediatric); Z99.89 Dependence on other enabling machines and devices; R41.89 Other symptoms and signs involving cognitive functions and awareness; I25.10 Atherosclerotic heart disease of native coronary artery without angina pectoris; R41.3 Other amnesia | CPT/HCPCS: 83036; 99397 ==

== ENCOUNTER 2025-06-24 07:55 | Outpatient (REF) | payer MEDICARE, OTHER, SELFPAY ==
--- OUTSIDE RECORDS SUMMARY | 2025-06-24 07:58 | XMS_ITS | Patient Health Record ---
Author Organization [facility] Address [address] [place] [address] Care Team Providers Care Tooth Cutter Contact Wheel Name Role Phone Nava (RETIRED) Laurent CONCEPCION Primary Care Provide r Unavailable Yaron Santa Unavailable [phone] Reason For Referral No Information Medications Medication [...] Problem Screening for malignant neoplasm of colon (956073488) Encounter for screening for malignant neoplasm of colon (Z12.11) Active confirmed Problem History of adenomatous polyp of colon (419972866) History of adenomatous polyp of colon (Z86.010) Active confirmed Problem Screening for malignant neoplasm of rectum (099706415) Encounter for screening for malignant neoplasm of rectum (Z12.12) Active confirmed Problem Gastroesophageal reflux disease without esophagitis (400347111) Gastroesophageal reflux disease without esophagitis (K21.9) Active confirmed Problem Preprocedural examination (801706446517674) Preprocedural examination (Z01.818) Active confirmed Plan Of Treatment Pending Test Test Name Order Date GI BIOPSY 06/27/2016 Future Test Test Name Order Date COLONOSCOPY 04/04/2016 Insurance Providers Payer Name Payer Address Payer Phone Subscriber Number Group Number Insured Name Patient Relationship to Insured Coverage Start Date Coverage End Date [facility] [address] [facility] [place] [phone] [id number] JM PAIGE Self - patient is the insured Medical (General) History Medical History History ICD Code Colonoscopy 05-04-2010--sigmoid diverticul osis and internal hemorrhoids Tubular adenoma removed in 2004; he had a negative colonoscopy in 1998. Denies [place],CVA,Lung disease,renal disease NIDDM Hyperlipidemia GERD HTN Surgical History Surgery Date(Month/Year) Appendectomy Tonsillectomy Back surgery--herniated disc/sciatica
[2025-06-24 10:05] LABS: Hematocrit 43.7 % (42.0-52.0); Hemoglobin 14.1 g/dl (14.0-18.0); Mean Corpuscular HGB Conc 32.3 g/dl (31.0-36.0); Mean Corpuscular Hemoglobin 30.3 pg (27.0-33.0); Mean Corpuscular Volume 93.8 fL (80.0-98.0); NRBC Abs Auto 0.000 X10*3/uL (0.0-0.012); NRBC Pct Auto 0.0 /100WBC (0.0-0.2); Platelet Count 232 X10*3/uL (160-400); Red Blood Count 4.66 X10*6/uL (4.60-5.80); White Blood Count 6.8 X10*3/uL (4.8-10.8)
[2025-06-24 10:41] LABS: Alanine Aminotransferase 40 U/L (0-40); Albumin Level 4.5 g/dL (3.5-5.0); Alkaline Phosphatase 130 U/L (39-117); Anion Gap 11 (12-20); Aspartate Amino Transferase 32 U/L (5-37); Blood Urea Nitrogen 28 mg/dL (9-16); Calcium 9.5 mg/dL (8.4-10.2); Carbon Dioxide 29 mmol/L (22-29); Chloride 105 mmol/L (96-108); Cholesterol 150 mg/dL (<200); Estimated Glomerular Filt Rate 48; HDL Cholesterol 55 mg/dL (>40); Potassium 5.0 mmol/L (3.3-5.1); Sodium 140 mmol/L (135-145); Total Protein 6.7 g/dL (6.5-8.0); Triglycerides 141 mg/dL (<150)
== END 2025-06-24 07:56 | disposition home or self-care (01) ==
LOC: HO.HMGCLDS 07:55
PROVIDERS: PCP Physician Assistant; Visit Provider Physician Assistant
DX: Z12.5 Encounter for screening for malignant neoplasm of prostate (principal); E11.8 Type 2 diabetes mellitus with unspecified complications; I10 Essential (primary) hypertension; I25.10 Atherosclerotic heart disease of native coronary artery without angina pectoris
CPT/HCPCS: 36415; 80053; 80061; 82043; 82570; 84153; 85027

== ENCOUNTER 2025-07-01 07:01 | Outpatient (REF) | payer MEDICARE, OTHER, SELFPAY ==
--- OUTSIDE RECORDS SUMMARY | 2025-07-01 07:03 | XMS_ITS | Patient Health Record ---
Author Organization [facility] Address [address] [place] [address] Care Team Providers Care Vamp Marker Name Role Phone Nava (RETIRED) Laurent CONCEPCION Primary Care Provide r Unavailable Yaron Santa Unavailable [phone] Reason For Referral No Information Medications Medication [...] Problem Screening for malignant neoplasm of colon (651924758) Encounter for screening for malignant neoplasm of colon (Z12.11) Active confirmed Problem History of adenomatous polyp of colon (343493372) History of adenomatous polyp of colon (Z86.010) Active confirmed Problem Screening for malignant neoplasm of rectum (322941234) Encounter for screening for malignant neoplasm of rectum (Z12.12) Active confirmed Problem Gastroesophageal reflux disease without esophagitis (913974469) Gastroesophageal reflux disease without esophagitis (K21.9) Active confirmed Problem Preprocedural examination (828348332794504) Preprocedural examination (Z01.818) Active confirmed Plan Of Treatment Pending Test Test Name Order Date GI BIOPSY 06/27/2016 Future Test Test Name Order Date COLONOSCOPY 04/04/2016 Insurance Providers Payer Name Payer Address Payer Phone Subscriber Number Group Number Insured Name Patient Relationship to Insured Coverage Start Date Coverage End Date [facility] [address] [facility] [place] [phone] [id number] JM PAIGE Self - patient is the insured Medical (General) History Medical History History ICD Code Colonoscopy 05-04-2010--sigmoid diverticul osis and internal hemorrhoids Tubular adenoma removed in 2004; he had a negative colonoscopy in 1998. Denies [place],CVA,Lung disease,renal disease NIDDM Hyperlipidemia GERD HTN Surgical History Surgery Date(Month/Year) Appendectomy Tonsillectomy Back surgery--herniated disc/sciatica
[2025-07-01 11:04] LABS: Anion Gap 10 (12-20); Blood Urea Nitrogen 34 mg/dL (9-16); Calcium 9.0 mg/dL (8.4-10.2); Carbon Dioxide 27 mmol/L (22-29); Chloride 108 mmol/L (96-108); Estimated Glomerular Filt Rate 55; Potassium 4.3 mmol/L (3.3-5.1); Sodium 141 mmol/L (135-145)
== END 2025-07-01 07:02 | disposition home or self-care (01) ==
LOC: HO.HMGCLDS 07:01
PROVIDERS: PCP Physician Assistant; Visit Provider Physician Assistant
DX: N17.9 Acute kidney failure, unspecified (principal)
CPT/HCPCS: 36415; 80048